=== PATIENT | female | born 1930 | race Caucasian/White ===

== ENCOUNTER 2017-03-05 22:52 | Inpatient (IN) | payer BC, MEDICARE ==
[~2017-03-05] VITALS: Ht 167.6 cm; Wt 68.0 kg
[~2017-03-05 22:52] MED LIST: ACET-704 PO; ASPI81TA2 PO; CIPR250T PO; FERR140T2 PO; GLIM4TAB2 PO; LEVO100T5 PO; LEVO25TA55 PO; LOSA100T6 PO; LOVA40TA PO; MINE473O2 PO; PANT40TA5 PO; PHEN95TA PO; SITA1TBM4 PO; VITA1TAB3 PO; WARF5TAB7 PO
[2017-03-05 23:31] LABS: BASO % 0 % (0-3); EOS % 0 % (0-3); HEMATOCRIT 28.3 % (36.0-47.0); HEMOGLOBIN 9.4 g/dL (12.0-15.5); LYMPH # 0.7 x10^3/uL (1.0-4.8); LYMPH % 7 % (24-48); MEAN CORPUSCULAR HEMOGLOBIN 33 pg (25-35); MEAN CORPUSCULAR HGB CONC 33 g/dL (31-37); MEAN CORPUSCULAR VOLUME 98 fL (79-100); MONO % 3 % (0-9); NEUT % 89 % (31-73); PLATELET COUNT 313 x10^3/uL (140-400); RED BLOOD COUNT 2.88 x10^6/uL (3.50-5.40); RED CELL DISTRIBUTION WIDTH 15.9 % (11.5-14.5); WHITE BLOOD COUNT 10.5 x10^3/uL (4.0-11.0)
[2017-03-05 23:43] LABS: ALBUMIN 3.1 g/dL (3.4-5.0); ALBUMIN/GLOBULIN RATIO 0.7 (1.0-1.7); CALCIUM 8.4 mg/dL (8.5-10.1); CREATININE 3.7 mg/dL (0.6-1.0); GFR 11.6; TOTAL BILIRUBIN 0.5 mg/dL (0.2-1.0); TOTAL PROTEIN 7.5 g/dL (6.4-8.2)
--- NOTE | 2017-03-05 23:49 | PHYS DOC ---
Past Medical History Past Medical History: Diabetes-Type II, DVT, High Cholesterol, Hypertension, Hypothyroid, UTI Past Surgical History: Cholecystectomy, Coronary Bypass Surgery, Hip Replacement, Hysterectomy, Other Additional Past Surgical Histo: RIGHT HIP, IVC FILTER PLACED Alcohol Use: Rarely Drug Use: None Adult General Chief Complaint Chief Complaint: MECHANICAL FALL HPI HPI Patient is a 86 year old female who lives at home by herself and her daughter was coming to visit her from [place] and she got to open the door and slipped and fell. Daughter states patient did hit her head. Patient wears oxygen at night and went EMS got there the patient had O2 saturations in the low 70s. Daughter states this is not unremarkable. Patient has a skin tear to her left elbow. Patient has no other significant signs of trauma. Patient has no complaints in the emergency room. Patient denies any head or neck pain. Patient denies any chest pain or shortness of breath. Family is at bedside. Pertinent physical exam findings: Skin tear to the left elbow Tachycardia ED course: A septic workup was ordered on the patient along with a CT of the head and neck and a chest x-ray and EKG 2309: Sinus tach rate of 107 no STEM 0022: Discussed the chest x-ray and lab results with the patient and family and will merit for further evaluation and management 0058: called Dr. Grewal discussed CC/HPI/PMH with and he agrees to admit the patient Pertinent results: Chest shows questionable left lower infiltrates with possible persistent left scarring Creatinine of 3.7 with a BUN of 80 ED medical decision making: After reviewing the chart, chief complaint, history of present illness, past medical history, physical exam, lab results, radiology results I believe the patient may be developing a left lower lobe pneumonia or fluid contributed the patient hypoxia that was noted by EMS when they went to the house to transport her to the emergency room. We'll start the patient on antibiotics. Patient be admitted for further evaluation and management. At this time the patient does not need ICU. Review of Systems Review of Systems Constitutional: Denies fever or chills [] Eyes: Denies change in visual acuity, redness, or eye pain [] HENT: Denies nasal congestion or sore throat [] Respiratory: Denies cough or shortness of breath [] Cardiovascular: No additional information not addressed in HPI [] GI: Denies abdominal pain, nausea, vomiting, bloody stools or diarrhea [] : Denies dysuria or hematuria [] Musculoskeletal: Denies back pain or joint pain [] Integument: Denies rash or skin lesions [] Neurologic: Denies headache, focal weakness or sensory changes [] Endocrine: Denies polyuria or polydipsia [] Current Medications Current Medications Current Medications Medications (Trade) Dose Ordered Sig/Silvano Start Time Stop Time Status Last Admin Dose Admin Azithromycin 250 ml @ 250 mls/hr 1X ONCE 03/06/17 01:00 03/06/17 01:59 Ceftriaxone Sodium 1 gm/ Sodium Chloride 50 ml @ 100 mls/hr Q24H 03/06/17 23:00 Ceftriaxone Sodium 50 ml @ 100 mls/hr 1X ONCE 03/06/17 00:30 03/06/17 00:59 03/06/17 00:49 100 MLS/HR Allergies Allergies Allergies Coded Allergies Type Severity Reaction Last Updated Verified No Known Drug Allergies 10/20/13 No Physical Exam Physical Exam Constitutional: Well developed, well nourished, no acute distress, non-toxic appearance. [] HENT: Normocephalic, atraumatic, bilateral external ears normal, oropharynx moist, no oral exudates, nose normal. [] Eyes: PERRLA, EOMI, conjunctiva normal, no discharge. [] Neck: Normal range of motion, no tenderness, supple, no stridor. [] Cardiovascular: Tachycardia, no murmur [] Lungs & Thorax: Bilateral breath sounds clear to auscultation [] Abdomen: Bowel sounds normal, soft, no tenderness, no masses, no pulsatile masses. [] Skin: Warm, dry, no erythema, no rash. Skin tear to her right elbow that is unsuturable [] Back: No tenderness, no CVA tenderness. [] Extremities: No tenderness, no cyanosis, no clubbing, ROM intact, no edema. [] Neurologic: Alert and oriented X 3, normal motor function, normal sensory function, no focal deficits noted. [] Psychologic: Affect normal, judgement normal, mood normal. [] Current Patient Data Vital Signs Vital Signs Date Time Temp Pulse Resp B/P (MAP) Pulse Ox O2 Delivery O2 Flow Rate FiO2 03/06/17 00:30 64 16 105/52 (69) 98 Nasal Cannula 3.0 03/05/17 22:55 98.9 98.9 Lab Values Laboratory Tests Test 03/05/17 23:10 03/05/17 23:40 White Blood Count 10.5 x10^3/uL (4.0-11.0) Red Blood Count 2.88 x10^6/uL (3.50-5.40) L Hemoglobin 9.4 g/dL (12.0-15.5) L Hematocrit 28.3 % (36.0-47.0) L Mean Corpuscular Volume 98 fL (79-100) Mean Corpuscular Hemoglobin 33 pg (25-35) Mean Corpuscular Hemoglobin Concent 33 g/dL (31-37) Red Cell Distribution Width 15.9 % (11.5-14.5) H Platelet Count 313 x10^3/uL (140-400) Neutrophils (%) (Auto) 89 % (31-73) H Lymphocytes (%) (Auto) 7 % (24-48) L Monocytes (%) (Auto) 3 % (0-9) Eosinophils (%) (Auto) 0 % (0-3) Basophils (%) (Auto) 0 % (0-3) Neutrophils # (Auto) 9.3 x10^3uL (1.8-7.7) H Lymphocytes # (Auto) 0.7 x10^3/uL (1.0-4.8) L Monocytes # (Auto) 0.4 x10^3/uL (0.0-1.1) Eosinophils # (Auto) 0.0 x10^3/uL (0.0-0.7) Basophils # (Auto) 0.0 x10^3/uL (0.0-0.2) Platelet Estimate Pending Sodium Level 136 mmol/L (136-145) Potassium Level 5.0 mmol/L (3.5-5.1) Chloride Level 100 mmol/L (98-107) Carbon Dioxide Level 22 mmol/L (21-32) Anion Gap 14 (6-14) Blood Urea Nitrogen 80 mg/dL (7-20) H Creatinine 3.7 mg/dL (0.6-1.0) H Estimated GFR (Cockcroft-Gault) 11.6 BUN/Creatinine Ratio 22 (6-20) H Glucose Level 302 mg/dL (70-99) H Calcium Level 8.4 mg/dL (8.5-10.1) L Total Bilirubin 0.5 mg/dL (0.2-1.0) Aspartate Amino Transferase (AST) 22 U/L (15-37) Alanine Aminotransferase (ALT) 15 U/L (14-59) Alkaline Phosphatase 51 U/L (46-116) Troponin I Quantitative < 0.017 ng/mL (0.000-0.055) JW-Hxk-A-Type Natriuretic Peptide 06167 pg/mL (0-449) H Total Protein 7.5 g/dL (6.4-8.2) Albumin 3.1 g/dL (3.4-5.0) L Albumin/Globulin Ratio 0.7 (1.0-1.7) L Lactic Acid Level 2.5 mmol/L (0.4-2.0) H Laboratory Tests 03/05/17 23:10 Laboratory Tests 03/05/17 23:10 EKG EKG Sinus tach rate of 107 no STEMI[] Radiology/Procedures Radiology/Procedures CT head and neck No traumatic intracranial injury or fracture Chest x-ray Possible left lower lobe infiltrate versus scarring [] Course & Med Decision Making Course & Med Decision Making Pertinent Labs and Imaging studies reviewed. (See chart for details) [] Dragon Disclaimer Dragon Disclaimer This electronic medical record was generated, in whole or in part, using a voice recognition dictation system. Departure Departure Impression: Primary Impression: Hypoxia Additional Impressions: Pneumonia Acute on chronic renal failure Disposition: ADMITTED INPATIENT Admitting Physician: Jessica Grewal Condition: STABLE Referrals: JESSICA GREWAL MD (PCP) Problem Qualifiers Additional Impressions: Pneumonia Pneumonia type: due to unspecified organism Laterality: left Lung location : lower lobe of lung Qualified Codes: J18.1 - Lobar pneumonia, unspecified organism MARCOS WORTHINGTON DO March 05, 2017 23:49
--- NOTE | 2017-03-05 23:56 | RAD ---
PROCEDURE CT head and cervical spine without contrast. HISTORY Patient fell, head and neck pain. COMPARISON CT head without contrast September 13, 2015. TECHNIQUE Helical CT imaging of the brain and of the cervical spine is performed without IV contrast. PQRS: One or more the following individualized dose reduction techniques were utilized for the study: 1. Automated exposure control. 2. Adjustment of the mA and/or kV according to patient size. 3. Use of iterative reconstruction technique. FINDINGS No acute calvarial fracture. Visualized globes and orbits are intact. The mastoid air cells are clear. Mild mucosal thickening left sphenoid sinus. Maxillary sinuses incompletely imaged. No midline shift or mass effect. No extra-axial fluid collection or intraparenchymal hemorrhage. Gee-white matter differentiation is preserved. Basilar cisterns are patent. The ventricles and sulci are prominent, consistent with age-related cerebral atrophy. There is periventricular white matter hypoattenuation, nonspecific but commonly due to chronic small vessel ischemic disease in a patient of this age. Motion artifact degrades image quality on the cervical spine images. No acute fracture or subluxation of the cervical spine. Multilevel facet hypertrophy. Straightening of normal cervical lordosis may be positional or due to muscle spasm. No perched or jumped facets. There is grade 1 anterolisthesis of C3 on C4 and C4 on C5. Alignment otherwise maintained. There is disc space narrowing and degenerative endplate spurring in the cervical spine. There is central canal stenosis due to spondylitic disc of C3/C4. There is vague ground-glass opacity in the left lung apex, image 50. Soft tissues of the neck unremarkable. IMPRESSION 1. No acute intracranial abnormality. Senescent changes. 2. No acute fracture or subluxation of the cervical spine. Electronically signed by: Valentin Jeronimo MD (March 05, 2017 23:55:35)
[2017-03-06] MEDS ORDERED: AZITHRMYCN 500MG IVPB FOR OMNI 250 ML IV ONE (01:00)
[2017-03-06] MEDS ORDERED: MORPHINE SULFATE 2 MG/ML DISP.SYRIN. IV PRN (01:15)
[2017-03-06] MEDS ORDERED: ONDANSETRON PF 4 MG/2 ML VIAL. IV PRN (01:15)
[2017-03-06 01:25] LABS: ANISOCYTOSIS SLIGHT; OVALOCYTES OCC; PLT ESTIMATE ADEQUATE (ADEQUATE)
--- NOTE | 2017-03-06 02:14 | ACF ---
Admission Forms Criteria PNEUMONIA, COMMUNITY ACQUIRED Clinical Indications for Admission to Inpatient Care ( Place 'X' for any and all applicable criteria): Admission is indicated for ANY ONE of the following (1)(2)(3): [ ]I. Hypoxemia indicated by ANY ONE of the following: [ ]a) Oxygen saturation less than 90% while breathing room air [ ]b) PO2 less than 60 mm Hg (8.0 kPa) while breathing room air [ ]c) Chronic lung disease with significant deterioration from baseline oxygenation [ ]II. Appropriate diagnostic testing and treatment unavailable in outpatient or recovery facility (eg,testing or infection control measures unavailable(10) [X]III. Moderate-risk or high-risk category patients (Pneumonia Severity Index (PSI) class IV or V, or CURB-65 score of 3 or greater). [ ]IV. Outpatient treatment failure as indicated by ANY ONE of the following(9) : [ ]a) Failure to respond to antibiotic (eg, resistant organism) [ ]b) Clinically significant adverse effects from medication (eg, vomiting) [ ]c) Complications of pneumonia (eg, empyema, bacteremia) [ ]d) Significant worsening of comorbid cond necessitating inpatient care (eg, chronic heart failure) [ ]V. Intermediate-risk category patients (eg, PSI class III or CURB-65 score 2) who do not improve with initial therapy and observation. [ ]. Immunocompromised patients (eg, AIDS, chronic steroid use) at moderate or high risk based on clinical evaluation. [ ]VII. Complicated pleural effusions (eg, exudative, loculated) [ ]VIII.Hemodynamic instability [ ] IX. Altered mental status that is severe or persistent. [ ]X. Dehydration that is severe or persistent. [ ]XI. Bacteremia [ ]XII. Respiratory finding (eg. tachypnea) that do not respond to outpatient or observation care treatment Extended stay beyond goal length of stay may be needed for (20) [ ]a) Unclear diagnosis [ ]b) Pleural disease [ ]c) Severe pneumonia or treatment failure (25 [ ]d) Respiratory failure (anticipate invasive or noninvasive ventilatory support) [ ]e) Abnormal serum electrolytes (serum Na concentration less than 135 mEq/L (mmol/L) (32)(33) [ ]f) Clinically significant comorbid illness (eg, heart failure, atrial fibrillation with rapid heart rate, alcohol withdrawal, renal insufficiency)(34)(35) [ ]g) Comorbid acute exacerbation of COPD(36) [ ]h) Concomitant diagnosis of malignancy that may be associated with malnutrition, immunologic impairment, or bronchial obstruction. [ ]i) Concomitant altered mental status [ ]j) Culture-identified Gram-negative or antibiotic-resistant organism (eg, Pseudomonas, methicillin-resistant Staphylococcus aureus)(30) [ ]k) Healthcare-associated pneumonia The original [facility] content created by [employer] has been revised. The portions of the content which have been revised are identified through the use of italic text or in bold, and [facility] has neither reviewed nor approved the modified material. All other unmodified content is copyright [facility]. Please see references footnoted in the original [facility] edition 2016 Admission Criteria Met?: Yes CALISTA CARDOZO March 06, 2017 02:14
[2017-03-06 03:00] VITALS: BP 96/45
[2017-03-06 07:00] VITALS: BP 116/49
--- NOTE | 2017-03-06 08:45 | RAD ---
Examination: Single frontal view the chest. History: Hypoxia Comparison: 04/08/2016 Findings: The cardiomediastinal silhouette grossly appears unremarkable. There is no acute infiltrate or visualized pneumothorax identified. Mild prominent appearing bilateral interstitial markings likely chronic interstitial changes. Impression: 1. No acute cardiopulmonary findings. 2. Chronic interstitial changes.
--- NOTE | 2017-03-06 09:23 | PDOC ---
GENERAL General: see dictated H&P. Problems: VITAL SIGNS Vital Signs: Vital Signs Date Time Temp Pulse Resp B/P (MAP) Pulse Ox O2 Delivery O2 Flow Rate FiO2 03/06/17 07:00 97.9 57 18 116/49 (71) 95 Nasal Cannula 3.0 97.9 I & O I & O Intake and Output 03/06/17 07:00 Intake Total 50 ml Output Total 120 ml Balance -70 ml Intake IV Total 50 ml Output Urine Total 120 ml # Voids 1 ALLERGIES Allergies: Allergies Coded Allergies Type Severity Reaction Last Updated Verified No Known Drug Allergies 10/20/13 No MEDS Medications: Current Medications Medications (Trade) Dose Ordered Sig/Silvano Start Time Stop Time Status Last Admin Dose Admin Azithromycin 250 ml @ 250 mls/hr 1X ONCE 03/06/17 01:00 03/06/17 01:59 DC 03/06/17 01:12 250 MLS/HR Ceftriaxone Sodium 1 gm/ Sodium Chloride 50 ml @ 100 mls/hr Q24H 03/06/17 23:00 Ceftriaxone Sodium 50 ml @ 100 mls/hr 1X ONCE 03/06/17 00:30 03/06/17 00:59 DC 03/06/17 00:49 100 MLS/HR Morphine Sulfate 2 mg PRN Q2HR PRN 03/06/17 01:15 03/07/17 01:14 Ondansetron HCl (Zofran) 4 mg PRN Q8HRS PRN 03/06/17 01:15 03/07/17 01:14 LAB Lab: Laboratory Tests Test 03/05/17 23:10 03/05/17 23:40 White Blood Count 10.5 x10^3/uL (4.0-11.0) Red Blood Count 2.88 x10^6/uL (3.50-5.40) Hemoglobin 9.4 g/dL (12.0-15.5) Hematocrit 28.3 % (36.0-47.0) Mean Corpuscular Volume 98 fL (79-100) Mean Corpuscular Hemoglobin 33 pg (25-35) Mean Corpuscular Hemoglobin Concent 33 g/dL (31-37) Red Cell Distribution Width 15.9 % (11.5-14.5) Platelet Count 313 x10^3/uL (140-400) Neutrophils (%) (Auto) 89 % (31-73) Lymphocytes (%) (Auto) 7 % (24-48) Monocytes (%) (Auto) 3 % (0-9) Eosinophils (%) (Auto) 0 % (0-3) Basophils (%) (Auto) 0 % (0-3) Neutrophils # (Auto) 9.3 x10^3uL (1.8-7.7) Lymphocytes # (Auto) 0.7 x10^3/uL (1.0-4.8) Monocytes # (Auto) 0.4 x10^3/uL (0.0-1.1) Eosinophils # (Auto) 0.0 x10^3/uL (0.0-0.7) Basophils # (Auto) 0.0 x10^3/uL (0.0-0.2) Segmented Neutrophils % 73 % (35-66) Band Neutrophils % 19 % (0-9) Lymphocytes % 8 % (24-48) Platelet Estimate Adequate (ADEQUATE) Anisocytosis Slight Ovalocytes Occ Sodium Level 136 mmol/L (136-145) Potassium Level 5.0 mmol/L (3.5-5.1) Chloride Level 100 mmol/L (98-107) Carbon Dioxide Level 22 mmol/L (21-32) Anion Gap 14 (6-14) Blood Urea Nitrogen 80 mg/dL (7-20) Creatinine 3.7 mg/dL (0.6-1.0) Estimated GFR (Cockcroft-Gault) 11.6 BUN/Creatinine Ratio 22 (6-20) Glucose Level 302 mg/dL (70-99) Calcium Level 8.4 mg/dL (8.5-10.1) Total Bilirubin 0.5 mg/dL (0.2-1.0) Aspartate Amino Transf (AST/SGOT) 22 U/L (15-37) Alanine Aminotransferase (ALT/SGPT) 15 U/L (14-59) Alkaline Phosphatase 51 U/L (46-116) Troponin I Quantitative < 0.017 ng/mL (0.000-0.055) EW-Yaq-Z-Type Natriuretic Peptide 53332 pg/mL (0-449) Total Protein 7.5 g/dL (6.4-8.2) Albumin 3.1 g/dL (3.4-5.0) Albumin/Globulin Ratio 0.7 (1.0-1.7) Lactic Acid Level 2.5 mmol/L (0.4-2.0) JESSICA GREWAL MD March 06, 2017 09:23
--- NOTE | 2017-03-06 10:30 | PDOC ---
Provider Note Provider Note [id number] acute resp fail acute diastolic chf carmen see orders. JESUS CARRENO MD March 06, 2017 10:30
[2017-03-06] MEDS: FUROSEMIDE 40 MG/4 ML VIAL. IVP SCH (10:32)
[2017-03-06] MEDS: PANTOPRAZOLE 40 MG TABLET.DR. PO SCH (10:40)
[2017-03-06 10:43] VITALS: BP 136/40
[2017-03-06] MEDS ORDERED: DEXTROSE 50% 25 GM / 50ML DISP.SYRIN. IV PRN (11:15)
--- NOTE | 2017-03-06 11:22 | EKG ---
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
[2017-03-06] MEDS: INSULIN ASPART 300 UNITS/3 ML INSULN.PEN SQ SCH ×2 (11:33→16:46)
[2017-03-06] MEDS: IPRATRPIUM/ALBUTEROL 0.5/2.5MG 3 ML NEBU. NEB SCH ×3 (11:38→19:44)
--- NOTE | 2017-03-06 12:03 | CONS ---
DATE OF CONSULTATION: 03/06/2017 I was asked to see this 86-year-old lady for shortness of breath, acute respiratory failure, abnormal chest x-ray. HISTORY OF PRESENT ILLNESS: She is a lifelong nonsmoker. She has multiple medical problems. She has history of pulmonary embolism and DVT status post IVC filter. She has congestive heart failure. Dr. Bethea mentioned that she has been diuresed to improve her shortness of breath. She has not felt good for the past few days. She has had more shortness of breath. She has had cough, runny nose. She denies fever and chills. Her daughter came to visit her. The patient fell on her way opening the door for her. Her daughter called 911. She was found to have O2 saturation of 70%. She is now on oxygen. She feels tired. She has pain in sternal area. PAST MEDICAL HISTORY: CHF, diabetes mellitus, DVT, pulmonary embolism, IVC filter, hypertension, UTI, hypothyroidism, coronary artery disease status post CABG. ALLERGIES: No known drug allergies. MEDICATIONS: Currently she is on Lasix 40 mg IV daily, Rocephin 1 gram IV daily. SOCIAL HISTORY: She does not smoke. FAMILY HISTORY: Positive for hypertension. REVIEW OF SYSTEMS: As mentioned as above. She has had left lower extremity edema. Other systems otherwise negative. PHYSICAL EXAMINATION: GENERAL: This is a chronically ill-appearing lady. VITAL SIGNS: Her O2 saturation on 3 liters of oxygen is 95%, respiratory rate 20, heart rate 57, Blood pressure 116/49, temperature 97.9. HEENT: Normocephalic, atraumatic. Pupils equal, round, reactive to light. Throat is clear. Nose is clear. NECK: There is no JVD, lymphadenopathy or thyromegaly. CARDIOVASCULAR: Regular rate and rhythm. PMI is not displaced. CHEST: Inspection, she has kyphosis. LUNGS: There is bibasilar crackles and dullness at the bases. ABDOMEN: Soft. Bowel sounds are good. There is no mass. EXTREMITIES: There is edema, chronic changes. LYMPHATICS: There is no lymphadenopathy. NEUROLOGIC: She is alert and oriented. SKIN: Chronic changes. LABORATORY DATA: I reviewed the following lab data: Chest x-ray shows increased interstitial marking. WBC 10.5, hemoglobin 9.4, platelets 313. Sodium 136, potassium 5, chloride 100, CO2 of 22, glucose 302, BUN 80, creatinine 3.7. BNP 20,027. Troponin less than 0.01. Lactic acid 2.5. IMPRESSION: 1. Acute respiratory failure, multifactorial in etiology including acute diastolic congestive heart failure, volume overload secondary to acute kidney injury versus others. 2. Abnormal chest x-ray. 3. Acute diastolic congestive heart failure. 4. Acute kidney injury. 5. Chronic kidney disease. 6. Anemia. 7. Hypertension. 8. Diabetes mellitus. 9. 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 PLAN AND RECOMMENDATIONS: 1. Titrate FiO2 to keep O2 saturation 92%. 2. Start bronchodilator. 3. Gentle diuresis. Monitor kidney function very closely. 4. Protonix for stress ulcer prophylaxis. 5. She has IVC filter. 6. Blood culture. 7. Continue Rocephin. 8. fall precaution The findings and recommendations were discussed with the patient and her daughter. They understood and agreed to proceed with the plan. Thank you very much for allowing me to participate in care of this very nice lady. JESUS CARRENO M.D. : AJAY/ruddy JOB#: [id number] / [id number] NAKUL
[2017-03-06] MEDS ORDERED: ONDA-35 PO (12:53)
[2017-03-06] MEDS ORDERED: BYSTOLIC10 MG PO (12:53)
[2017-03-06] MEDS ORDERED: FERR-26 PO (12:53)
[2017-03-06] MEDS ORDERED: PROC5TAB14 PO (12:53)
[2017-03-06] MEDS ORDERED: FURO40TA4 PO (12:53)
[2017-03-06] MEDS ORDERED: CYAN100072 PO (12:53)
[2017-03-06] MEDS ORDERED: LEVOTHYROXINE 100 MCG TABLET PO SCH (14:00)
--- NOTE | 2017-03-06 14:01 | HP ---
ADMIT DATE: CHIEF COMPLAINT AND HISTORY OF PRESENT ILLNESS: This 86-year-old white female is well known to me from followup in the office. The patient was going to the door to let her daughter in who had driven in from [place] for the weekend when she fell, hitting her head and neck and obtained a skin tear to her left elbow. She was brought to the Emergency Room where she was found to be hypoxic, had negative CTs of head and neck, relatively normal chest x-ray, BNP of 20,000, BUN of 80, creatinine of 3.6. Giving some history regarding to this, the patient has had troubles with congestive heart failure and chronic anemia, which has been felt due to her underlying chronic kidney disease. She sees Hematology and receives Procrit on and off basis for the anemia. Her BUN and creatinine have raised as I have added Zaroxolyn to her Lasix regimen recently to try to get rid of fluid because of breathing difficulties. We have had discussions in the office that kidney function may not allow us to diurese her to the point where she is comfortable all the time from a congestive heart failure standpoint and she is at least open to the idea of dialysis if it takes such a thing and we will ask Renal to see her during this stay regarding the same. PAST MEDICAL HISTORY: Remarkable for diabetes, DVT, hypertension, hyperlipidemia, hypothyroidism. PAST SURGICAL HISTORY: She has had prior cholecystectomy, coronary artery bypass surgery, hip replacement, hysterectomy. She has had an IVC filter placed. SOCIAL HISTORY: She is recently , nonsmoker, rarely uses alcohol, does not use drugs. Lives at home alone. FAMILY HISTORY: Noncontributory. MEDICATIONS: Brought with the patient, listed on the computer and have been addressed. ALLERGIES: She has no known drug allergies. PHYSICAL EXAMINATION: GENERAL: She is a well-developed, well-nourished elderly white female who was initially sleepy, but arouses and is awake, alert and oriented. HEAD, EYES, EARS, NOSE AND THROAT: Remarkable for glasses. NECK: Supple without thyromegaly. CHEST: Clear to auscultation and percussion. HEART: Regular rate and rhythm without S3, S4, or murmur. ABDOMEN: Soft, nontender, without hepatosplenomegaly or masses. EXTREMITIES: Reveal 2-3+ edema with redness up to two-thirds of the way up the tripp suggesting a possible early cellulitis bilaterally. NEUROLOGIC: She is intact. IMPRESSION: Admission due to fall for other reasons, predominantly that of hypoxia, which is likely related to congestive heart failure exacerbated by her renal dysfunction, which allows us not to diurese her as well as we would like to as discussed above. PLAN: The patient has been admitted. I am going to ask Cardiology and Renal to come by and try to sort this out on how we could maybe get this better. At this point in time, she will be on O2 as needed, to maintain O2 sats and the patient will be monitored, managed and treated appropriately. JESSICA GREWAL MD DR: BRE/ruddy JOB#: [id number] / [id number]
[2017-03-06] MEDS: METOPROLOL TART IMMED RELEASE 50 MG TABLET. PO SCH ×2 (14:25→20:55)
[2017-03-06] MEDS: LOSARTAN POTASSIUM 50 MG TABLET. PO SCH (14:25)
[2017-03-06 14:56] VITALS: BP 119/45
--- NOTE | 2017-03-06 15:07 | CARD ---
APPROVED REPORT EXAM: Two-dimensional and M-mode echocardiogram with Doppler and color Doppler. Other Information Quality : Excellent INDICATION Congestive Heart Failure 2D DIMENSIONS RVDd4.2 (2.9-3.5cm)Left Atrium(2D)5.0 (1.6-4.0cm) IVSd1.5 (0.7-1.1cm)Aortic Root(2D)2.5 (2.0-3.7cm) LVDd4.0 (3.9-5.9cm)LVOT Diameter2.0 (1.8-2.4cm) PWd1.0 (0.7-1.1cm)LVDs2.3 (2.5-4.0cm) FS (%) 30.0 %SV52.9 ml LVEF(%)65.0 (>50%) Aortic Valve AoV Peak Amrit.130.1cm/sAoV VTI24.8cm AO Peak GR.6.8mmHgLVOT VTI 18.02cm AO Mean GR.3mmHgAVA (VTI)2.20cm2 Mitral Valve MV E Zzjrrrfo67.3cm/sMV DECEL [id number] MV A Ymnttyhi31.3cm/sE/A Ratio0.8 TDI Lateral E' P. V4.18cm/sMedial E' P. V4.89cm/s E/Lateral E'18.3E/Medial E'15.6 Tricuspid Valve TR P. Kfltqvmg318ed/sRAP [id number] TR Peak Gr.[id number] Pulmonary Vein S1 Dqlyamgc23.6cm/sS2 Zygvldwi58.51cm/s D2 Gyybggkd85.5cm/sPVa [id number] LEFT VENTRICLE The left ventricle is normal size. There is moderate concentric left ventricular hypertrophy. The lef t ventricular systolic function is normal and the ejection fraction is within normal range. The Eject ion Fraction is 65%. There is normal LV segmental wall motion. Transmitral Doppler flow pattern is Gr arabella II-abnormal relaxation pattern. RIGHT VENTRICLE The right ventricle is mildly dilated. The right ventricular systolic function is normal. ATRIA The left atrium is mild to moderately dilated. The right atrium is mildly dilated. The interatrial se ptum is intact with no evidence for an atrial septal defect or patent foramen ovale as noted on 2-D o r Doppler imaging. AORTIC VALVE The aortic valve is mildly thickened but opens well. Doppler and Color Flow revealed mild aortic regu rgitation. There is no significant aortic valvular stenosis. MITRAL VALVE The mitral valve is calcified but opens well. There is no evidence of mitral valve prolapse. There is no mitral valve stenosis. Doppler and Color-flow revealed mild mitral regurgitation. TRICUSPID VALVE The tricuspid valve is normal in structure Doppler and Color Flow revealed moderate tricuspid regurgi tation. There is severe pulmonary hypertension. The PA pressure was estimated at 66 mmHg. There is no tricuspid valve stenosis. PULMONIC VALVE The pulmonary valve is normal in structure Doppler and Color Flow revealed mild to moderate pulmonic valvular regurgitation. There is no pulmonic valvular stenosis. GREAT VESSELS The aortic root is normal in size. The ascending aorta is normal in size. The IVC is dilated and jing apses <50% with inspiration. PERICARDIAL EFFUSION There is no evidence of significant pericardial effusion. Critical Notification Critical Value: No <Conclusion> There is moderate concentric left ventricular hypertrophy. The left ventricular systolic function is normal and the ejection fraction is within normal range. The Ejection Fraction is 65%. Transmitral Doppler flow pattern is Grade II-abnormal relaxation pattern. The right ventricle is mildly dilated. The left atrium is mild to moderately dilated. The right atrium is mildly dilated. Doppler and Color Flow revealed mild aortic regurgitation. The aortic valve is mildly thickened but opens well. Doppler and Color-flow revealed mild mitral regurgitation. The mitral valve is calcified but opens well. Doppler and Color Flow revealed moderate tricuspid regurgitation. There is severe pulmonary hypertension. The PA pressure was estimated at 66 mmHg. Doppler and Color Flow revealed mild to moderate pulmonic valvular regurgitation. There is no evidence of significant pericardial effusion.
[2017-03-06] MEDS ORDERED: LEVO150T5 PO (15:28)
--- NOTE | 2017-03-06 15:59 | PDOC2 ---
CONSULT Date of Consult Date of Consult DATE: 03/06/17 TIME: 15:49 Reason for Consult Reason for Consult: CHF Referring Physician Referring Physician: Dr. Bethea Identification/Chief Complaint Chief Complaint Fall History of Present Illness Reason for Visit: This patient is a very pleasant 86-year-old lady that I have seen in the past. Sometimes she is not the best of historians due to memory loss. Patient has a known history of coronary artery disease as well as bypass surgery and previous episodes of congestive heart failure due to diastolic dysfunction. She was at home and walk to the door to let her family in and had a fall and due to that she was brought into the emergency room which she was seen and evaluated and he was decided to admit her. In the ER she was found to be short of breath and quite hypoxic and her BUN/creatinine and creatinine are markedly elevated and her anemia which is chronic is may be getting worse. At the time that I saw her she denies having any significant chest pains and denies having any shortness of breath at this point but she states that if she tries to take a deep breath it hurts on the side of the chest. Past Medical History Cardiovascular: CAD, HTN, Hyperlipidemia, Other Pulmonary: No pertinent hx GI: GI bleed, Peptic Ulcer disease Hepatobiliary: Cholelithiasis Renal/: Chronic renal insuff, UTI, Urinary Incontinence Endocrine: Diabetes, Hypothyroidism Past Surgical History Past Surgical History: Appendectomy, Cholecystectomy, CABG, Hernia Repair, Total hip replacement, Hysterectomy Current Problem List Problem List Problems Medical Problems: (1) Acute on chronic renal failure Status: Acute (2) Hypoxia Status: Acute (3) Pneumonia Status: Acute Current Medications Current Medications Current Medications Ceftriaxone Sodium 1 gm/ Sodium Chloride 50 ml @ 100 mls/hr Q24H IV ; Start at 23:00 Azithromycin 250 ml @ 250 mls/hr 1X ONCE IV Last administered on 03/06/17 01 :12; Start 03/06/17 at 01:00; Stop 03/06/17 at 01:59; Status DC Ceftriaxone Sodium 50 ml @ 100 mls/hr 1X ONCE IV Last administered on 00:49; Start 03/06/17 at 00:30; Stop 03/06/17 at 00:59; Status DC Ondansetron HCl (Zofran) 4 mg PRN Q8HRS PRN IV NAUSEA/VOMITING; Start 03/06/17 at 01:15; Stop 03/07/17 at 01:14 Morphine Sulfate 2 mg PRN Q2HR PRN IV SEVERE PAIN; Start 03/06/17 at 01:15; Stop 03/07/17 at 01:14 Furosemide (Lasix) 40 mg DAILY IVP Last administered on 03/06/17 10:32; Start 03/06/17 at 10:00 Pantoprazole Sodium (Protonix) 40 mg DAILYAC PO Last administered on 03/06/17 10:40; Start 03/06/17 at 11:30 Albuterol/ Ipratropium (Duoneb) 3 ml RTQID NEB Last administered on 03/06/17 15:29; Start 03/06/17 at 12:00 Insulin Aspart (NovoLOG) 0-5 UNITS TIDWMEALS SQ Last administered on 03/06/17 11:33; Start 03/06/17 at 12:00 Dextrose (Dextrose 50%-Water Syringe) 12.5 gm PRN Q15MIN PRN IV SEE COMMENTS; Start 03/06/17 at 11:15 Levothyroxine Sodium (Synthroid) 100 mcg DAILY07 PO Last administered on 14:24; Start 03/06/17 at 14:00; Stop 03/06/17 at 15:30; Status DC Losartan Potassium (Cozaar) 100 mg DAILY PO Last administered on 03/06/17 14: 25; Start 03/06/17 at 14:00 Atorvastatin Calcium (Lipitor) 10 mg QHS PO ; Start 03/06/17 at 21:00 Metoprolol Tartrate (Lopressor) 50 mg BID PO Last administered on 03/06/17 14: 25; Start 03/06/17 at 14:00 Levothyroxine Sodium (Synthroid) 200 mcg WEEKLY@0700 PO ; Start 03/12/17 at 07: 00; Stop 03/12/17 at 07:00; Status DC Levothyroxine Sodium (Synthroid) 150 mcg DAILY07 PO ; Start 03/07/17 at 07:00 Active Scripts Active Reported Levothyroxine Sodium 150 Mcg Tablet 1 Tab PO DAILY Ferrous Sulfate 325 Mg Tablet 65 Mg PO DAILY B-12 (Cyanocobalamin (Vitamin B-12)) 1,000 Mcg Tablet 1,000 Mcg PO DAILY Bystolic (Nebivolol) 10 Mg Tablet 10 Mg PO DAILY Furosemide 40 Mg Tablet 1 Tab PO DAILY Prochlorperazine Maleate 10 Mg Tablet 1 Tab PO Q6HRS Ondansetron Hcl 4 Mg Tablet 1 Tab PO PRN Q6HRS Pantoprazole Sodium 40 Mg Tablet. 1 Tab PO DAILY Losartan Potassium 100 Mg Tablet 100 Mg PO DAILY Glimepiride 4 Mg Tablet 4 Mg PO DAILY Janumet Xr 50-1,000 Mg Tablet (Sitagliptin Phos/Metformin Hcl) 1 Each Tbmp.24hr 1 Tab PO BID Mevacor (Lovastatin) 40 Mg Tablet 40 Mg PO DAILY Allergies Allergies: Coded Allergies: No Known Drug Allergies (Unverified , 10/20/13) Physical Exam Physical Exam H EENT pupils are reactive, oral mucosa well-hydrated. Neck is supple 1 cm JVD. Lungs moving air well few Rales no wheezing. Heart regular rate and rhythm S1-S2 no S3 no S4, 1/6 systolic murmur. No rub. Abdomen is soft bowel sounds are present. Extremities 1-2+ edema. Neurological exam is grossly intact and at her baseline Vitals VITALS Vital Signs Date Time Temp Pulse Resp B/P (MAP) Pulse Ox O2 Delivery O2 Flow Rate FiO2 03/06/17 15:30 99 Nasal Cannula 3.0 03/06/17 14:56 97.8 59 20 119/45 (69) 97.8 Labs Labs Laboratory Tests Test 03/05/17 23:10 03/05/17 23:40 White Blood Count 10.5 x10^3/uL (4.0-11.0) Red Blood Count 2.88 x10^6/uL (3.50-5.40) Hemoglobin 9.4 g/dL (12.0-15.5) Hematocrit 28.3 % (36.0-47.0) Mean Corpuscular Volume 98 fL (79-100) Mean Corpuscular Hemoglobin 33 pg (25-35) Mean Corpuscular Hemoglobin Concent 33 g/dL (31-37) Red Cell Distribution Width 15.9 % (11.5-14.5) Platelet Count 313 x10^3/uL (140-400) Neutrophils (%) (Auto) 89 % (31-73) Lymphocytes (%) (Auto) 7 % (24-48) Monocytes (%) (Auto) 3 % (0-9) Eosinophils (%) (Auto) 0 % (0-3) Basophils (%) (Auto) 0 % (0-3) Neutrophils # (Auto) 9.3 x10^3uL (1.8-7.7) Lymphocytes # (Auto) 0.7 x10^3/uL (1.0-4.8) Monocytes # (Auto) 0.4 x10^3/uL (0.0-1.1) Eosinophils # (Auto) 0.0 x10^3/uL (0.0-0.7) Basophils # (Auto) 0.0 x10^3/uL (0.0-0.2) Segmented Neutrophils % 73 % (35-66) Band Neutrophils % 19 % (0-9) Lymphocytes % 8 % (24-48) Platelet Estimate Adequate (ADEQUATE) Anisocytosis Slight Ovalocytes Occ Sodium Level 136 mmol/L (136-145) Potassium Level 5.0 mmol/L (3.5-5.1) Chloride Level 100 mmol/L (98-107) Carbon Dioxide Level 22 mmol/L (21-32) Anion Gap 14 (6-14) Blood Urea Nitrogen 80 mg/dL (7-20) Creatinine 3.7 mg/dL (0.6-1.0) Estimated GFR (Cockcroft-Gault) 11.6 BUN/Creatinine Ratio 22 (6-20) Glucose Level 302 mg/dL (70-99) Calcium Level 8.4 mg/dL (8.5-10.1) Total Bilirubin 0.5 mg/dL (0.2-1.0) Aspartate Amino Transf (AST/SGOT) 22 U/L (15-37) Alanine Aminotransferase (ALT/SGPT) 15 U/L (14-59) Alkaline Phosphatase 51 U/L (46-116) Troponin I Quantitative < 0.017 ng/mL (0.000-0.055) XK-Cro-S-Type Natriuretic Peptide 94201 pg/mL (0-449) Total Protein 7.5 g/dL (6.4-8.2) Albumin 3.1 g/dL (3.4-5.0) Albumin/Globulin Ratio 0.7 (1.0-1.7) Lactic Acid Level 2.5 mmol/L (0.4-2.0) Laboratory Tests Test 03/05/17 23:10 03/05/17 23:40 White Blood Count 10.5 x10^3/uL (4.0-11.0) Red Blood Count 2.88 x10^6/uL (3.50-5.40) Hemoglobin 9.4 g/dL (12.0-15.5) Hematocrit 28.3 % (36.0-47.0) Mean Corpuscular Volume 98 fL (79-100) Mean Corpuscular Hemoglobin 33 pg (25-35) Mean Corpuscular Hemoglobin Concent 33 g/dL (31-37) Red Cell Distribution Width 15.9 % (11.5-14.5) Platelet Count 313 x10^3/uL (140-400) Neutrophils (%) (Auto) 89 % (31-73) Lymphocytes (%) (Auto) 7 % (24-48) Monocytes (%) (Auto) 3 % (0-9) Eosinophils (%) (Auto) 0 % (0-3) Basophils (%) (Auto) 0 % (0-3) Neutrophils # (Auto) 9.3 x10^3uL (1.8-7.7) Lymphocytes # (Auto) 0.7 x10^3/uL (1.0-4.8) Monocytes # (Auto) 0.4 x10^3/uL (0.0-1.1) Eosinophils # (Auto) 0.0 x10^3/uL (0.0-0.7) Basophils # (Auto) 0.0 x10^3/uL (0.0-0.2) Segmented Neutrophils % 73 % (35-66) Band Neutrophils % 19 % (0-9) Lymphocytes % 8 % (24-48) Platelet Estimate Adequate (ADEQUATE) Anisocytosis Slight Ovalocytes Occ Sodium Level 136 mmol/L (136-145) Potassium Level 5.0 mmol/L (3.5-5.1) Chloride Level 100 mmol/L (98-107) Carbon Dioxide Level 22 mmol/L (21-32) Anion Gap 14 (6-14) Blood Urea Nitrogen 80 mg/dL (7-20) Creatinine 3.7 mg/dL (0.6-1.0) Estimated GFR (Cockcroft-Gault) 11.6 BUN/Creatinine Ratio 22 (6-20) Glucose Level 302 mg/dL (70-99) Calcium Level 8.4 mg/dL (8.5-10.1) Total Bilirubin 0.5 mg/dL (0.2-1.0) Aspartate Amino Transf (AST/SGOT) 22 U/L (15-37) Alanine Aminotransferase (ALT/SGPT) 15 U/L (14-59) Alkaline Phosphatase 51 U/L (46-116) Troponin I Quantitative < 0.017 ng/mL (0.000-0.055) WS-Esa-O-Type Natriuretic Peptide 70753 pg/mL (0-449) Total Protein 7.5 g/dL (6.4-8.2) Albumin 3.1 g/dL (3.4-5.0) Albumin/Globulin Ratio 0.7 (1.0-1.7) Lactic Acid Level 2.5 mmol/L (0.4-2.0) Assessment/Plan Assessment/Plan This patient's fall may not be due to any dysrhythmias since her rhythm has been stable since she arrived here. However she is very weak and elderly and that may have been the cause for the fall. No apparent loss of consciousness. No significant dysrhythmia since admission. She had an echocardiogram done that showed: There is moderate concentric left ventricular hypertrophy. The left ventricular systolic function is normal and the ejection fraction is within normal range. The Ejection Fraction is 65%. Transmitral Doppler flow pattern is Grade II-abnormal relaxation pattern. The right ventricle is mildly dilated. The left atrium is mild to moderately dilated. The right atrium is mildly dilated. Doppler and Color Flow revealed mild aortic regurgitation. The aortic valve is mildly thickened but opens well. Doppler and Color-flow revealed mild mitral regurgitation. The mitral valve is calcified but opens well. Doppler and Color Flow revealed moderate tricuspid regurgitation. There is severe pulmonary hypertension. The PA pressure was estimated at 66 mmHg. Doppler and Color Flow revealed mild to moderate pulmonic valvular regurgitation. There is no evidence of significant pericardial effusion. With this left ventricular function she should have adequate renal perfusion and her CHF is more of a diastolic issue. I am quite concerned with this situation as far as her kidneys and I don't know that we are going to be able to diurese her medically and even if she responds to medications I don't know how long she will be able to continue to be in this non -oliguric phase. I will leave it up to the printed circuit boards pinner to decide on how to approach this but I would suggest dialysis but I also know that the patient did not want to have that. I will follow the patient with you. Thank you very much for asking me to participate in the care of this patient. ROB ARSHAD MD March 06, 2017 15:59
[2017-03-06 19:00] VITALS: BP 91/42
[2017-03-06] MEDS: ATORVASTATIN CALCIUM 10 MG TABLET. PO SCH (20:55)
--- NOTE | 2017-03-06 21:16 | CONS ---
DATE OF CONSULTATION: 03/06/2017 REQUESTING PHYSICIAN: Nicolas Bethea MD REASON FOR CONSULTATION: Renal failure. HISTORY OF PRESENT ILLNESS: This is a delightful 86-year-old female with diabetes mellitus, hypertension, and chronic kidney disease. The patient presents status post mechanical fall. The patient has had lower extremity edema, which has been worsening. She denies chest pain or shortness of breath or difficulty with diet. She has no nausea, vomiting, diarrhea, seizures, malignancies or itching. PAST MEDICAL HISTORY: Diabetes mellitus, hypertension, chronic kidney disease, DVT, hyperlipidemia, hypothyroidism, urinary tract infections, coronary bypass surgery, cholecystectomy, hip replacement, hysterectomy, IVC filter placement. ALLERGIES: None. MEDICATIONS: Noted. FAMILY HISTORY: Noncontributory. SOCIAL HISTORY: The patient resides independently. She has a son who lives [facility], daughter in [place]. No tobacco or ethanol use. REVIEW OF SYSTEMS: No headaches, sinus problem, nasal drainage, epistaxis, change in vision or hearing. No difficulty swallowing. No fever, chills, cough, sputum production, or hemoptysis. No chest pain or shortness of breath. No abdominal pain, no upper or lower gastrointestinal blood loss. No nausea, vomiting, diarrhea, seizures or malignancies. She has lower extremity edema. PHYSICAL EXAMINATION: GENERAL: The patient awake, conversant, appropriate. HEENT: Clear with sallow complexion. NECK: No increased JVD. No thyromegaly, mass, or adenopathy. She does have kyphosis of the back. LUNGS: Clear. CARDIAC: Without S3 or rub. ABDOMEN: Soft, nontender, no bruits. EXTREMITIES: ____ chronic venous stasis changes with 3+ bilateral extremity edema. NEUROLOGIC: Nonfocal localizing. PSYCHIATRIC: Good attention to detail, appropriate affect. LABORATORY DATA: Sodium 136, potassium 5, chloride 100, CO2 is 23, BUN 80, creatinine 3.7, GFR is 11.6, hemoglobin 9.4, hematocrit 28%, white count 10.5, platelets are 313. IMPRESSION: 1. 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 2. Hypertension. 3. Chronic lower extremity edema. 4. Status post fall. RECOMMENDATIONS: Discussed with the patient and her daughter. The patient is a DNR and has made herself such. We discussed potential intervention with dialysis. She prefers to proceed with medical management and no dialysis. I am certainly agreeable with the same. PLAN: 1. No dialysis at this time. 2. Diuresis as possible for lower extremity edema. Overall, the patient does not appear to have cardiopulmonary compromise from her edema. As such, we will not want to overdiurese. JESSICA ESTES MD DR: ROSE/ruddy JOB#: [id number] / [id number]
[2017-03-06 23:11] VITALS: BP 115/55
[2017-03-07 03:00] VITALS: BP 113/55
[2017-03-07] MEDS: LEVOTHYROXINE 150 MCG TABLET PO SCH (06:33)
[2017-03-07 07:00] VITALS: BP 121/52
[2017-03-07] MEDS: PANTOPRAZOLE 40 MG TABLET.DR. PO SCH (07:33)
[2017-03-07] MEDS: INSULIN ASPART 300 UNITS/3 ML INSULN.PEN SQ SCH ×2 (07:35→12:09)
[2017-03-07] MEDS: IPRATRPIUM/ALBUTEROL 0.5/2.5MG 3 ML NEBU. NEB SCH ×4 (07:42→19:28)
[2017-03-07 07:53] LABS: BASO % 0 % (0-3); EOS % 1 % (0-3); HEMATOCRIT 23.9 % (36.0-47.0); HEMOGLOBIN 7.6 g/dL (12.0-15.5); LYMPH # 0.9 x10^3/uL (1.0-4.8); LYMPH % 12 % (24-48); MEAN CORPUSCULAR HEMOGLOBIN 32 pg (25-35); MEAN CORPUSCULAR HGB CONC 32 g/dL (31-37); MEAN CORPUSCULAR VOLUME 99 fL (79-100); MONO % 7 % (0-9); NEUT % 80 % (31-73); PLATELET COUNT 205 x10^3/uL (140-400); RED BLOOD COUNT 2.41 x10^6/uL (3.50-5.40); RED CELL DISTRIBUTION WIDTH 16.1 % (11.5-14.5); WHITE BLOOD COUNT 7.1 x10^3/uL (4.0-11.0)
[2017-03-07 08:52] LABS: ALBUMIN 2.6 g/dL (3.4-5.0); ALBUMIN/GLOBULIN RATIO 0.8 (1.0-1.7); CALCIUM 8.3 mg/dL (8.5-10.1); CREATININE 4.1 mg/dL (0.6-1.0); GFR 10.3; MAGNESIUM 1.6 mg/dL (1.8-2.4); POTASSIUM 5.3 mmol/L (3.5-5.1); TOTAL BILIRUBIN 0.2 mg/dL (0.2-1.0); TOTAL PROTEIN 5.9 g/dL (6.4-8.2)
[2017-03-07] MEDS: METOPROLOL TART IMMED RELEASE 50 MG TABLET. PO SCH ×2 (09:00→20:08)
[2017-03-07] MEDS: FUROSEMIDE 40 MG/4 ML VIAL. IVP SCH (09:49)
--- NOTE | 2017-03-07 10:00 | PDOC ---
GENERAL General: vss and afebrile. awake and alert. good appetitie and no complaints of sob today. complains of chest pain with cough and has anterior chest wall tenderness related to fall prior to admission. Hb has decreased to 7.6. BUN increased to 84 and creatinine increased to 4.1. K+ is up at 5.3. sugars remain somewhat elevated. difficult situation in that kidney function will not allow diuresis she needs for chf. my thought would be as long as she has appetite, no sob, and no major complaints to adjust meds best we can which will necessarily make kidneys look worse. will follow labs and get therapy eval. Problems: VITAL SIGNS Vital Signs: Vital Signs Date Time Temp Pulse Resp B/P (MAP) Pulse Ox O2 Delivery O2 Flow Rate FiO2 03/07/17 09:00 56 121/52 03/07/17 07:43 Nasal Cannula 3.0 03/07/17 07:00 98.1 14 94 98.1 I & O I & O Intake and Output 03/07/17 07:00 Intake Total 410 ml Balance 410 ml Intake Oral 410 ml # Voids 6 ALLERGIES Allergies: Allergies Coded Allergies Type Severity Reaction Last Updated Verified No Known Drug Allergies 10/20/13 No MEDS Medications: Current Medications Medications (Trade) Dose Ordered Sig/Silvano Start Time Stop Time Status Last Admin Dose Admin Albuterol/ Ipratropium (Duoneb) 3 ml RTQID 03/06/17 12:00 03/07/17 07:42 3 ML Atorvastatin Calcium (Lipitor) 10 mg QHS 03/06/17 21:00 03/06/17 20:55 10 MG Azithromycin 250 ml @ 250 mls/hr 1X ONCE 03/06/17 01:00 03/06/17 01:59 DC 03/06/17 01:12 250 MLS/HR Ceftriaxone Sodium 1 gm/ Sodium Chloride 50 ml @ 100 mls/hr Q24H 03/06/17 23:00 03/06/17 22:43 100 MLS/HR Ceftriaxone Sodium 50 ml @ 100 mls/hr 1X ONCE 03/06/17 00:30 03/06/17 00:59 DC 03/06/17 00:49 100 MLS/HR Dextrose (Dextrose 50%-Water Syringe) 12.5 gm PRN Q15MIN PRN 03/06/17 11:15 Furosemide (Lasix) 40 mg DAILY 03/06/17 10:00 03/07/17 09:49 40 MG Insulin Aspart (NovoLOG) 0-5 UNITS TIDWMEALS 03/06/17 12:00 03/07/17 07:35 3 UNITS Levothyroxine Sodium (Synthroid) 150 mcg DAILY07 03/07/17 07:00 03/07/17 06:33 150 MCG Losartan Potassium (Cozaar) 100 mg DAILY 03/06/17 14:00 03/06/17 14:25 100 MG Metoprolol Tartrate (Lopressor) 50 mg BID 03/06/17 14:00 03/06/17 14:25 50 MG Morphine Sulfate 2 mg PRN Q2HR PRN 03/06/17 01:15 03/07/17 01:14 DC Ondansetron HCl (Zofran) 4 mg PRN Q8HRS PRN 03/06/17 01:15 03/07/17 01:14 DC Pantoprazole Sodium (Protonix) 40 mg DAILYAC 03/06/17 11:30 03/07/17 07:33 40 MG LAB Lab: Laboratory Tests Test 03/06/17 11:09 03/06/17 16:00 03/07/17 07:10 03/07/17 07:12 Glucose (Fingerstick) 286 mg/dL (70-99) 345 mg/dL (70-99) 239 mg/dL (70-99) White Blood Count 7.1 x10^3/uL (4.0-11.0) Red Blood Count 2.41 x10^6/uL (3.50-5.40) Hemoglobin 7.6 g/dL (12.0-15.5) Hematocrit 23.9 % (36.0-47.0) Mean Corpuscular Volume 99 fL (79-100) Mean Corpuscular Hemoglobin 32 pg (25-35) Mean Corpuscular Hemoglobin Concent 32 g/dL (31-37) Red Cell Distribution Width 16.1 % (11.5-14.5) Platelet Count 205 x10^3/uL (140-400) Neutrophils (%) (Auto) 80 % (31-73) Lymphocytes (%) (Auto) 12 % (24-48) Monocytes (%) (Auto) 7 % (0-9) Eosinophils (%) (Auto) 1 % (0-3) Basophils (%) (Auto) 0 % (0-3) Neutrophils # (Auto) 5.6 x10^3uL (1.8-7.7) Lymphocytes # (Auto) 0.9 x10^3/uL (1.0-4.8) Monocytes # (Auto) 0.5 x10^3/uL (0.0-1.1) Eosinophils # (Auto) 0.1 x10^3/uL (0.0-0.7) Basophils # (Auto) 0.0 x10^3/uL (0.0-0.2) Sodium Level 137 mmol/L (136-145) Potassium Level 5.3 mmol/L (3.5-5.1) Chloride Level 102 mmol/L (98-107) Carbon Dioxide Level 26 mmol/L (21-32) Anion Gap 9 (6-14) Blood Urea Nitrogen 84 mg/dL (7-20) Creatinine 4.1 mg/dL (0.6-1.0) Estimated GFR (Cockcroft-Gault) 10.3 BUN/Creatinine Ratio 20 (6-20) Glucose Level 237 mg/dL (70-99) Calcium Level 8.3 mg/dL (8.5-10.1) Magnesium Level 1.6 mg/dL (1.8-2.4) Total Bilirubin 0.2 mg/dL (0.2-1.0) Aspartate Amino Transf (AST/SGOT) 17 U/L (15-37) Alanine Aminotransferase (ALT/SGPT) 13 U/L (14-59) Alkaline Phosphatase 44 U/L (46-116) Total Protein 5.9 g/dL (6.4-8.2) Albumin 2.6 g/dL (3.4-5.0) Albumin/Globulin Ratio 0.8 (1.0-1.7) JESSICA GREWAL MD March 07, 2017 09:59
[2017-03-07] MEDS: LOSARTAN POTASSIUM 50 MG TABLET. PO SCH (10:28)
--- NOTE | 2017-03-07 10:28 | PDOC ---
PULMONARY PROGRESS NOTES Subjective on 02, sob is slightly better. has occ cough, has chest wall pain, no runny nose Vitals Vital Signs Date Time Temp Pulse Resp B/P (MAP) Pulse Ox O2 Delivery O2 Flow Rate FiO2 03/07/17 09:00 56 121/52 03/07/17 07:43 Nasal Cannula 3.0 03/07/17 07:00 98.1 14 94 98.1 ROS: No Nausea General: Alert HEENT: Other (nc at perrl, nose throat clear) Lungs: Crackles Cardiovascular: S1, S2 Abdomen: Soft, Non-tender Neuro Exam: Alert Extremities: No Edema Skin: Other (chronic changes) Labs Laboratory Tests Test 03/05/17 23:10 03/05/17 23:40 03/06/17 11:09 03/06/17 16:00 White Blood Count 10.5 x10^3/uL (4.0-11.0) Red Blood Count 2.88 x10^6/uL (3.50-5.40) Hemoglobin 9.4 g/dL (12.0-15.5) Hematocrit 28.3 % (36.0-47.0) Mean Corpuscular Volume 98 fL (79-100) Mean Corpuscular Hemoglobin 33 pg (25-35) Mean Corpuscular Hemoglobin Concent 33 g/dL (31-37) Red Cell Distribution Width 15.9 % (11.5-14.5) Platelet Count 313 x10^3/uL (140-400) Neutrophils (%) (Auto) 89 % (31-73) Lymphocytes (%) (Auto) 7 % (24-48) Monocytes (%) (Auto) 3 % (0-9) Eosinophils (%) (Auto) 0 % (0-3) Basophils (%) (Auto) 0 % (0-3) Neutrophils # (Auto) 9.3 x10^3uL (1.8-7.7) Lymphocytes # (Auto) 0.7 x10^3/uL (1.0-4.8) Monocytes # (Auto) 0.4 x10^3/uL (0.0-1.1) Eosinophils # (Auto) 0.0 x10^3/uL (0.0-0.7) Basophils # (Auto) 0.0 x10^3/uL (0.0-0.2) Segmented Neutrophils % 73 % (35-66) Band Neutrophils % 19 % (0-9) Lymphocytes % 8 % (24-48) Platelet Estimate Adequate (ADEQUATE) Anisocytosis Slight Ovalocytes Occ Sodium Level 136 mmol/L (136-145) Potassium Level 5.0 mmol/L (3.5-5.1) Chloride Level 100 mmol/L (98-107) Carbon Dioxide Level 22 mmol/L (21-32) Anion Gap 14 (6-14) Blood Urea Nitrogen 80 mg/dL (7-20) Creatinine 3.7 mg/dL (0.6-1.0) Estimated GFR (Cockcroft-Gault) 11.6 BUN/Creatinine Ratio 22 (6-20) Glucose Level 302 mg/dL (70-99) Calcium Level 8.4 mg/dL (8.5-10.1) Total Bilirubin 0.5 mg/dL (0.2-1.0) Aspartate Amino Transf (AST/SGOT) 22 U/L (15-37) Alanine Aminotransferase (ALT/SGPT) 15 U/L (14-59) Alkaline Phosphatase 51 U/L (46-116) Troponin I Quantitative < 0.017 ng/mL (0.000-0.055) JP-Oao-H-Type Natriuretic Peptide 44154 pg/mL (0-449) Total Protein 7.5 g/dL (6.4-8.2) Albumin 3.1 g/dL (3.4-5.0) Albumin/Globulin Ratio 0.7 (1.0-1.7) Lactic Acid Level 2.5 mmol/L (0.4-2.0) Glucose (Fingerstick) 286 mg/dL (70-99) 345 mg/dL (70-99) Test 03/07/17 07:10 03/07/17 07:12 White Blood Count 7.1 x10^3/uL (4.0-11.0) Red Blood Count 2.41 x10^6/uL (3.50-5.40) Hemoglobin 7.6 g/dL (12.0-15.5) Hematocrit 23.9 % (36.0-47.0) Mean Corpuscular Volume 99 fL (79-100) Mean Corpuscular Hemoglobin 32 pg (25-35) Mean Corpuscular Hemoglobin Concent 32 g/dL (31-37) Red Cell Distribution Width 16.1 % (11.5-14.5) Platelet Count 205 x10^3/uL (140-400) Neutrophils (%) (Auto) 80 % (31-73) Lymphocytes (%) (Auto) 12 % (24-48) Monocytes (%) (Auto) 7 % (0-9) Eosinophils (%) (Auto) 1 % (0-3) Basophils (%) (Auto) 0 % (0-3) Neutrophils # (Auto) 5.6 x10^3uL (1.8-7.7) Lymphocytes # (Auto) 0.9 x10^3/uL (1.0-4.8) Monocytes # (Auto) 0.5 x10^3/uL (0.0-1.1) Eosinophils # (Auto) 0.1 x10^3/uL (0.0-0.7) Basophils # (Auto) 0.0 x10^3/uL (0.0-0.2) Sodium Level 137 mmol/L (136-145) Potassium Level 5.3 mmol/L (3.5-5.1) Chloride Level 102 mmol/L (98-107) Carbon Dioxide Level 26 mmol/L (21-32) Anion Gap 9 (6-14) Blood Urea Nitrogen 84 mg/dL (7-20) Creatinine 4.1 mg/dL (0.6-1.0) Estimated GFR (Cockcroft-Gault) 10.3 BUN/Creatinine Ratio 20 (6-20) Glucose Level 237 mg/dL (70-99) Calcium Level 8.3 mg/dL (8.5-10.1) Magnesium Level 1.6 mg/dL (1.8-2.4) Total Bilirubin 0.2 mg/dL (0.2-1.0) Aspartate Amino Transf (AST/SGOT) 17 U/L (15-37) Alanine Aminotransferase (ALT/SGPT) 13 U/L (14-59) Alkaline Phosphatase 44 U/L (46-116) Total Protein 5.9 g/dL (6.4-8.2) Albumin 2.6 g/dL (3.4-5.0) Albumin/Globulin Ratio 0.8 (1.0-1.7) Glucose (Fingerstick) 239 mg/dL (70-99) Laboratory Tests Test 03/06/17 11:09 03/06/17 16:00 03/07/17 07:10 03/07/17 07:12 Glucose (Fingerstick) 286 mg/dL (70-99) 345 mg/dL (70-99) 239 mg/dL (70-99) White Blood Count 7.1 x10^3/uL (4.0-11.0) Red Blood Count 2.41 x10^6/uL (3.50-5.40) Hemoglobin 7.6 g/dL (12.0-15.5) Hematocrit 23.9 % (36.0-47.0) Mean Corpuscular Volume 99 fL (79-100) Mean Corpuscular Hemoglobin 32 pg (25-35) Mean Corpuscular Hemoglobin Concent 32 g/dL (31-37) Red Cell Distribution Width 16.1 % (11.5-14.5) Platelet Count 205 x10^3/uL (140-400) Neutrophils (%) (Auto) 80 % (31-73) Lymphocytes (%) (Auto) 12 % (24-48) Monocytes (%) (Auto) 7 % (0-9) Eosinophils (%) (Auto) 1 % (0-3) Basophils (%) (Auto) 0 % (0-3) Neutrophils # (Auto) 5.6 x10^3uL (1.8-7.7) Lymphocytes # (Auto) 0.9 x10^3/uL (1.0-4.8) Monocytes # (Auto) 0.5 x10^3/uL (0.0-1.1) Eosinophils # (Auto) 0.1 x10^3/uL (0.0-0.7) Basophils # (Auto) 0.0 x10^3/uL (0.0-0.2) Sodium Level 137 mmol/L (136-145) Potassium Level 5.3 mmol/L (3.5-5.1) Chloride Level 102 mmol/L (98-107) Carbon Dioxide Level 26 mmol/L (21-32) Anion Gap 9 (6-14) Blood Urea Nitrogen 84 mg/dL (7-20) Creatinine 4.1 mg/dL (0.6-1.0) Estimated GFR (Cockcroft-Gault) 10.3 BUN/Creatinine Ratio 20 (6-20) Glucose Level 237 mg/dL (70-99) Calcium Level 8.3 mg/dL (8.5-10.1) Magnesium Level 1.6 mg/dL (1.8-2.4) Total Bilirubin 0.2 mg/dL (0.2-1.0) Aspartate Amino Transf (AST/SGOT) 17 U/L (15-37) Alanine Aminotransferase (ALT/SGPT) 13 U/L (14-59) Alkaline Phosphatase 44 U/L (46-116) Total Protein 5.9 g/dL (6.4-8.2) Albumin 2.6 g/dL (3.4-5.0) Albumin/Globulin Ratio 0.8 (1.0-1.7) Medications Active Scripts Medications Dose Route/Sig Max Daily Dose Days Date Category Levothyroxine Sodium 150 Mcg Tablet 1 Tab PO DAILY 03/06/17 Reported Ferrous Sulfate 325 Mg Tablet 65 Mg PO DAILY 03/06/17 Reported B-12 (Cyanocobalamin (Vitamin B-12)) 1,000 Mcg Tablet 1,000 Mcg PO DAILY 03/06/17 Reported Bystolic (Nebivolol) 10 Mg Tablet 10 Mg PO DAILY 03/06/17 Reported Furosemide 40 Mg Tablet 1 Tab PO DAILY 03/06/17 Reported Prochlorperazine Maleate 10 Mg Tablet 1 Tab PO Q6HRS 03/06/17 Reported Ondansetron Hcl 4 Mg Tablet 1 Tab PO PRN Q6HRS 03/06/17 Reported Pantoprazole Sodium 40 Mg Tablet.dr 1 Tab PO DAILY 04/08/16 Reported Losartan Potassium 100 Mg Tablet 100 Mg PO DAILY 02/03/14 Reported Glimepiride 4 Mg Tablet 4 Mg PO DAILY 10/19/13 Reported Janumet Xr 50-1,000 Mg Tablet (Sitagliptin Phos/Metformin Hcl) 1 Each Tbmp.24hr 1 Tab PO BID 10/19/13 Reported Mevacor (Lovastatin) 40 Mg Tablet 40 Mg PO DAILY 10/19/13 Reported Impression . IMPRESSION: 1. Acute respiratory failure, multifactorial in etiology including acute diastolic congestive heart failure, volume overload secondary to acute kidney injury versus others. 2. Abnormal chest x-ray. 3. Acute diastolic congestive heart failure. 4. Acute kidney injury. 5. Chronic kidney disease. 6. Anemia. 7. Hypertension. 8. Diabetes mellitus. 9. 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 Plan . PLAN AND RECOMMENDATIONS: 1. Titrate FiO2 to keep O2 saturation 92%. 2. bronchodilator. 3. Gentle diuresis. Monitor kidney function very closely. 4. Protonix for stress ulcer prophylaxis. 5. She has IVC filter. 6. fu Blood culture. 7. Continue Rocephin. 8. fall precaution The findings and recommendations were discussed with the patient and rn. They understood and agreed to proceed with the plan. JESUS CARRENO MD March 07, 2017 10:28
[2017-03-07 11:00] VITALS: BP 129/60
--- NOTE | 2017-03-07 12:08 | PDOC ---
PROGRESS NOTES Subjective Subjective SEEN IN FOLLOW UP OF CKD5 Objective Objective Vital Signs Date Time Temp Pulse Resp B/P (MAP) Pulse Ox O2 Delivery O2 Flow Rate FiO2 03/07/17 11:12 93 Nasal Cannula 3.0 03/07/17 11:00 98.6 60 16 129/60 (83) 98.6 Intake and Output 03/07/17 07:00 Intake Total 410 ml Balance 410 ml Intake Oral 410 ml # Voids 6 Physical Exam Abdomen: Normal bowel sounds, Soft, No tenderness, No hepatosplenomegaly, No masses Heart: Regular rate, Normal S1, Normal S2, No murmurs, Gallops Extremities: No clubbing, No cyanosis, No edema, Normal pulses, No tenderness/ swelling General: Alert, Oriented X3, Cooperative, No acute distress Lungs: Clear to auscultation, Normal air movement Psych/Mental Status: Mental status NL, Mood NL Diagnosis RENAL FAILURE: Chronic (CKD stage V) Assessment Assessment Problems Medical Problems: (1) Acute on chronic renal failure Status: Acute (2) Hypoxia Status: Acute (3) Pneumonia Status: Acute Plan Plan of Care CONT RX OF DIASTOLIC DYSFUNCTION. ANTICIPATE MED RX AND NO DIALYSIS WILL BE HER WISH Comment Review of Relevant I have reviewed the following items jong (where applicable) has been applied. Labs Laboratory Tests Test 03/05/17 23:10 03/05/17 23:40 03/06/17 11:09 03/06/17 16:00 White Blood Count 10.5 x10^3/uL (4.0-11.0) Red Blood Count 2.88 x10^6/uL (3.50-5.40) Hemoglobin 9.4 g/dL (12.0-15.5) Hematocrit 28.3 % (36.0-47.0) Mean Corpuscular Volume 98 fL (79-100) Mean Corpuscular Hemoglobin 33 pg (25-35) Mean Corpuscular Hemoglobin Concent 33 g/dL (31-37) Red Cell Distribution Width 15.9 % (11.5-14.5) Platelet Count 313 x10^3/uL (140-400) Neutrophils (%) (Auto) 89 % (31-73) Lymphocytes (%) (Auto) 7 % (24-48) Monocytes (%) (Auto) 3 % (0-9) Eosinophils (%) (Auto) 0 % (0-3) Basophils (%) (Auto) 0 % (0-3) Neutrophils # (Auto) 9.3 x10^3uL (1.8-7.7) Lymphocytes # (Auto) 0.7 x10^3/uL (1.0-4.8) Monocytes # (Auto) 0.4 x10^3/uL (0.0-1.1) Eosinophils # (Auto) 0.0 x10^3/uL (0.0-0.7) Basophils # (Auto) 0.0 x10^3/uL (0.0-0.2) Segmented Neutrophils % 73 % (35-66) Band Neutrophils % 19 % (0-9) Lymphocytes % 8 % (24-48) Platelet Estimate Adequate (ADEQUATE) Anisocytosis Slight Ovalocytes Occ Sodium Level 136 mmol/L (136-145) Potassium Level 5.0 mmol/L (3.5-5.1) Chloride Level 100 mmol/L (98-107) Carbon Dioxide Level 22 mmol/L (21-32) Anion Gap 14 (6-14) Blood Urea Nitrogen 80 mg/dL (7-20) Creatinine 3.7 mg/dL (0.6-1.0) Estimated GFR (Cockcroft-Gault) 11.6 BUN/Creatinine Ratio 22 (6-20) Glucose Level 302 mg/dL (70-99) Calcium Level 8.4 mg/dL (8.5-10.1) Total Bilirubin 0.5 mg/dL (0.2-1.0) Aspartate Amino Transf (AST/SGOT) 22 U/L (15-37) Alanine Aminotransferase (ALT/SGPT) 15 U/L (14-59) Alkaline Phosphatase 51 U/L (46-116) Troponin I Quantitative < 0.017 ng/mL (0.000-0.055) ZC-Buf-P-Type Natriuretic Peptide 46602 pg/mL (0-449) Total Protein 7.5 g/dL (6.4-8.2) Albumin 3.1 g/dL (3.4-5.0) Albumin/Globulin Ratio 0.7 (1.0-1.7) Lactic Acid Level 2.5 mmol/L (0.4-2.0) Glucose (Fingerstick) 286 mg/dL (70-99) 345 mg/dL (70-99) Test 03/07/17 07:10 03/07/17 07:12 03/07/17 11:24 White Blood Count 7.1 x10^3/uL (4.0-11.0) Red Blood Count 2.41 x10^6/uL (3.50-5.40) Hemoglobin 7.6 g/dL (12.0-15.5) Hematocrit 23.9 % (36.0-47.0) Mean Corpuscular Volume 99 fL (79-100) Mean Corpuscular Hemoglobin 32 pg (25-35) Mean Corpuscular Hemoglobin Concent 32 g/dL (31-37) Red Cell Distribution Width 16.1 % (11.5-14.5) Platelet Count 205 x10^3/uL (140-400) Neutrophils (%) (Auto) 80 % (31-73) Lymphocytes (%) (Auto) 12 % (24-48) Monocytes (%) (Auto) 7 % (0-9) Eosinophils (%) (Auto) 1 % (0-3) Basophils (%) (Auto) 0 % (0-3) Neutrophils # (Auto) 5.6 x10^3uL (1.8-7.7) Lymphocytes # (Auto) 0.9 x10^3/uL (1.0-4.8) Monocytes # (Auto) 0.5 x10^3/uL (0.0-1.1) Eosinophils # (Auto) 0.1 x10^3/uL (0.0-0.7) Basophils # (Auto) 0.0 x10^3/uL (0.0-0.2) Sodium Level 137 mmol/L (136-145) Potassium Level 5.3 mmol/L (3.5-5.1) Chloride Level 102 mmol/L (98-107) Carbon Dioxide Level 26 mmol/L (21-32) Anion Gap 9 (6-14) Blood Urea Nitrogen 84 mg/dL (7-20) Creatinine 4.1 mg/dL (0.6-1.0) Estimated GFR (Cockcroft-Gault) 10.3 BUN/Creatinine Ratio 20 (6-20) Glucose Level 237 mg/dL (70-99) Calcium Level 8.3 mg/dL (8.5-10.1) Magnesium Level 1.6 mg/dL (1.8-2.4) Total Bilirubin 0.2 mg/dL (0.2-1.0) Aspartate Amino Transf (AST/SGOT) 17 U/L (15-37) Alanine Aminotransferase (ALT/SGPT) 13 U/L (14-59) Alkaline Phosphatase 44 U/L (46-116) Total Protein 5.9 g/dL (6.4-8.2) Albumin 2.6 g/dL (3.4-5.0) Albumin/Globulin Ratio 0.8 (1.0-1.7) Glucose (Fingerstick) 239 mg/dL (70-99) 287 mg/dL (70-99) Laboratory Tests Test 03/06/17 16:00 03/07/17 07:10 03/07/17 07:12 03/07/17 11:24 Glucose (Fingerstick) 345 mg/dL (70-99) 239 mg/dL (70-99) 287 mg/dL (70-99) White Blood Count 7.1 x10^3/uL (4.0-11.0) Red Blood Count 2.41 x10^6/uL (3.50-5.40) Hemoglobin 7.6 g/dL (12.0-15.5) Hematocrit 23.9 % (36.0-47.0) Mean Corpuscular Volume 99 fL (79-100) Mean Corpuscular Hemoglobin 32 pg (25-35) Mean Corpuscular Hemoglobin Concent 32 g/dL (31-37) Red Cell Distribution Width 16.1 % (11.5-14.5) Platelet Count 205 x10^3/uL (140-400) Neutrophils (%) (Auto) 80 % (31-73) Lymphocytes (%) (Auto) 12 % (24-48) Monocytes (%) (Auto) 7 % (0-9) Eosinophils (%) (Auto) 1 % (0-3) Basophils (%) (Auto) 0 % (0-3) Neutrophils # (Auto) 5.6 x10^3uL (1.8-7.7) Lymphocytes # (Auto) 0.9 x10^3/uL (1.0-4.8) Monocytes # (Auto) 0.5 x10^3/uL (0.0-1.1) Eosinophils # (Auto) 0.1 x10^3/uL (0.0-0.7) Basophils # (Auto) 0.0 x10^3/uL (0.0-0.2) Sodium Level 137 mmol/L (136-145) Potassium Level 5.3 mmol/L (3.5-5.1) Chloride Level 102 mmol/L (98-107) Carbon Dioxide Level 26 mmol/L (21-32) Anion Gap 9 (6-14) Blood Urea Nitrogen 84 mg/dL (7-20) Creatinine 4.1 mg/dL (0.6-1.0) Estimated GFR (Cockcroft-Gault) 10.3 BUN/Creatinine Ratio 20 (6-20) Glucose Level 237 mg/dL (70-99) Calcium Level 8.3 mg/dL (8.5-10.1) Magnesium Level 1.6 mg/dL (1.8-2.4) Total Bilirubin 0.2 mg/dL (0.2-1.0) Aspartate Amino Transf (AST/SGOT) 17 U/L (15-37) Alanine Aminotransferase (ALT/SGPT) 13 U/L (14-59) Alkaline Phosphatase 44 U/L (46-116) Total Protein 5.9 g/dL (6.4-8.2) Albumin 2.6 g/dL (3.4-5.0) Albumin/Globulin Ratio 0.8 (1.0-1.7) Microbiology 03/05/17 Blood Culture - Preliminary, Resulted NO GROWTH AFTER 1 DAY Medications Current Medications Ceftriaxone Sodium 1 gm/ Sodium Chloride 50 ml @ 100 mls/hr Q24H IV Last administered on 03/06/17 22:43; Start 03/06/17 at 23:00 Azithromycin 250 ml @ 250 mls/hr 1X ONCE IV Last administered on 03/06/17 01 :12; Start 03/06/17 at 01:00; Stop 03/06/17 at 01:59; Status DC Ceftriaxone Sodium 50 ml @ 100 mls/hr 1X ONCE IV Last administered on 00:49; Start 03/06/17 at 00:30; Stop 03/06/17 at 00:59; Status DC Ondansetron HCl (Zofran) 4 mg PRN Q8HRS PRN IV NAUSEA/VOMITING; Start 03/06/17 at 01:15; Stop 03/07/17 at 01:14; Status DC Morphine Sulfate 2 mg PRN Q2HR PRN IV SEVERE PAIN; Start 03/06/17 at 01:15; Stop 03/07/17 at 01:14; Status DC Furosemide (Lasix) 40 mg DAILY IVP Last administered on 03/07/17 09:49; Start 03/06/17 at 10:00 Pantoprazole Sodium (Protonix) 40 mg DAILYAC PO Last administered on 03/07/17 07:33; Start 03/06/17 at 11:30 Albuterol/ Ipratropium (Duoneb) 3 ml RTQID NEB Last administered on 03/07/17 11:12; Start 03/06/17 at 12:00 Insulin Aspart (NovoLOG) 0-5 UNITS TIDWMEALS SQ Last administered on 03/07/17 07:35; Start 03/06/17 at 12:00 Dextrose (Dextrose 50%-Water Syringe) 12.5 gm PRN Q15MIN PRN IV SEE COMMENTS; Start 03/06/17 at 11:15 Levothyroxine Sodium (Synthroid) 100 mcg DAILY07 PO Last administered on 14:24; Start 03/06/17 at 14:00; Stop 03/06/17 at 15:30; Status DC Losartan Potassium (Cozaar) 100 mg DAILY PO Last administered on 03/07/17 10: 28; Start 03/06/17 at 14:00 Atorvastatin Calcium (Lipitor) 10 mg QHS PO Last administered on 03/06/17 20: 55; Start 03/06/17 at 21:00 Metoprolol Tartrate (Lopressor) 50 mg BID PO Last administered on 03/06/17 14: 25; Start 03/06/17 at 14:00 Levothyroxine Sodium (Synthroid) 200 mcg WEEKLY@0700 PO ; Start 03/12/17 at 07: 00; Stop 03/12/17 at 07:00; Status DC Levothyroxine Sodium (Synthroid) 150 mcg DAILY07 PO Last administered on 06:33; Start 03/07/17 at 07:00 Active Scripts Active Reported Levothyroxine Sodium 150 Mcg Tablet 1 Tab PO DAILY Ferrous Sulfate 325 Mg Tablet 65 Mg PO DAILY B-12 (Cyanocobalamin (Vitamin B-12)) 1,000 Mcg Tablet 1,000 Mcg PO DAILY Bystolic (Nebivolol) 10 Mg Tablet 10 Mg PO DAILY Furosemide 40 Mg Tablet 1 Tab PO DAILY Prochlorperazine Maleate 10 Mg Tablet 1 Tab PO Q6HRS Ondansetron Hcl 4 Mg Tablet 1 Tab PO PRN Q6HRS Pantoprazole Sodium 40 Mg Tablet.dr 1 Tab PO DAILY Losartan Potassium 100 Mg Tablet 100 Mg PO DAILY Glimepiride 4 Mg Tablet 4 Mg PO DAILY Janumet Xr 50-1,000 Mg Tablet (Sitagliptin Phos/Metformin Hcl) 1 Each Tbmp.24hr 1 Tab PO BID Mevacor (Lovastatin) 40 Mg Tablet 40 Mg PO DAILY Vitals/I & O Vital Sign - Last 24 Hours 03/06/17 03/06/17 03/06/17 03/06/17 14:25 14:25 14:56 15:30 Temp 97.8 97.8 Pulse 59 59 59 Resp 20 B/P (MAP) 136/40 136/40 119/45 (69) Pulse Ox 99 99 O2 Delivery Nasal Cannula Nasal Cannula O2 Flow Rate 3.0 3.0 03/06/17 03/06/17 03/06/17 03/06/17 19:00 19:46 20:00 20:55 Temp 98.2 98.2 Pulse 63 60 Resp 17 B/P (MAP) 91/42 (58) 91/54 Pulse Ox 95 95 O2 Delivery Nasal Cannula Nasal Cannula Nasal Cannula O2 Flow Rate 3.0 3.0 3.0 03/06/17 03/07/17 03/07/17 03/07/17 23:11 03:00 07:00 07:30 Temp 97.5 97.9 98.1 97.5 97.9 98.1 Pulse 57 50 56 Resp 15 14 14 B/P (MAP) 115/55 (75) 113/55 (74) 121/52 (75) Pulse Ox 99 100 94 O2 Delivery Nasal Cannula Nasal Cannula Nasal Cannula Nasal Cannula O2 Flow Rate 3.0 3.0 3.0 03/07/17 03/07/17 03/07/17 03/07/17 07:43 09:00 10:28 11:00 Temp 98.6 98.6 Pulse 56 56 60 Resp 16 B/P (MAP) 121/52 121/52 129/60 (83) Pulse Ox 95 O2 Delivery Nasal Cannula Nasal Cannula O2 Flow Rate 3.0 3.0 03/07/17 11:12 Pulse Ox 93 O2 Delivery Nasal Cannula O2 Flow Rate 3.0 Intake and Output 03/06/17 03/06/17 03/07/17 15:00 23:00 07:00 Intake Total 250 ml 160 ml Balance 250 ml 160 ml JESSICA ESTES MD March 07, 2017 12:08
--- NOTE | 2017-03-07 12:11 | PDOC ---
PROGRESS NOTES Subjective Subjective Patient complains of chest wall pain Objective Objective Vital Signs Date Time Temp Pulse Resp B/P (MAP) Pulse Ox O2 Delivery O2 Flow Rate FiO2 03/07/17 11:12 93 Nasal Cannula 3.0 03/07/17 11:00 98.6 60 16 129/60 (83) 98.6 Intake and Output 03/07/17 07:00 Intake Total 410 ml Balance 410 ml Intake Oral 410 ml # Voids 6 Physical Exam Physical Exam No changes in cardiac exam Assessment Assessment The patient's chest wall pain is probably due to her fall with bruising to the area. The renal situation seems to be getting worse but if she is not going to do dialysis then all that we could do would be to continue with medications and sent her home at some point. May need to consider hospice at home. Comment Review of Relevant I have reviewed the following items jong (where applicable) has been applied. Labs Laboratory Tests Test 03/05/17 23:10 03/05/17 23:40 03/06/17 11:09 03/06/17 16:00 White Blood Count 10.5 x10^3/uL (4.0-11.0) Red Blood Count 2.88 x10^6/uL (3.50-5.40) Hemoglobin 9.4 g/dL (12.0-15.5) Hematocrit 28.3 % (36.0-47.0) Mean Corpuscular Volume 98 fL (79-100) Mean Corpuscular Hemoglobin 33 pg (25-35) Mean Corpuscular Hemoglobin Concent 33 g/dL (31-37) Red Cell Distribution Width 15.9 % (11.5-14.5) Platelet Count 313 x10^3/uL (140-400) Neutrophils (%) (Auto) 89 % (31-73) Lymphocytes (%) (Auto) 7 % (24-48) Monocytes (%) (Auto) 3 % (0-9) Eosinophils (%) (Auto) 0 % (0-3) Basophils (%) (Auto) 0 % (0-3) Neutrophils # (Auto) 9.3 x10^3uL (1.8-7.7) Lymphocytes # (Auto) 0.7 x10^3/uL (1.0-4.8) Monocytes # (Auto) 0.4 x10^3/uL (0.0-1.1) Eosinophils # (Auto) 0.0 x10^3/uL (0.0-0.7) Basophils # (Auto) 0.0 x10^3/uL (0.0-0.2) Segmented Neutrophils % 73 % (35-66) Band Neutrophils % 19 % (0-9) Lymphocytes % 8 % (24-48) Platelet Estimate Adequate (ADEQUATE) Anisocytosis Slight Ovalocytes Occ Sodium Level 136 mmol/L (136-145) Potassium Level 5.0 mmol/L (3.5-5.1) Chloride Level 100 mmol/L (98-107) Carbon Dioxide Level 22 mmol/L (21-32) Anion Gap 14 (6-14) Blood Urea Nitrogen 80 mg/dL (7-20) Creatinine 3.7 mg/dL (0.6-1.0) Estimated GFR (Cockcroft-Gault) 11.6 BUN/Creatinine Ratio 22 (6-20) Glucose Level 302 mg/dL (70-99) Calcium Level 8.4 mg/dL (8.5-10.1) Total Bilirubin 0.5 mg/dL (0.2-1.0) Aspartate Amino Transf (AST/SGOT) 22 U/L (15-37) Alanine Aminotransferase (ALT/SGPT) 15 U/L (14-59) Alkaline Phosphatase 51 U/L (46-116) Troponin I Quantitative < 0.017 ng/mL (0.000-0.055) EZ-Exh-U-Type Natriuretic Peptide 52517 pg/mL (0-449) Total Protein 7.5 g/dL (6.4-8.2) Albumin 3.1 g/dL (3.4-5.0) Albumin/Globulin Ratio 0.7 (1.0-1.7) Lactic Acid Level 2.5 mmol/L (0.4-2.0) Glucose (Fingerstick) 286 mg/dL (70-99) 345 mg/dL (70-99) Test 03/07/17 07:10 03/07/17 07:12 03/07/17 11:24 White Blood Count 7.1 x10^3/uL (4.0-11.0) Red Blood Count 2.41 x10^6/uL (3.50-5.40) Hemoglobin 7.6 g/dL (12.0-15.5) Hematocrit 23.9 % (36.0-47.0) Mean Corpuscular Volume 99 fL (79-100) Mean Corpuscular Hemoglobin 32 pg (25-35) Mean Corpuscular Hemoglobin Concent 32 g/dL (31-37) Red Cell Distribution Width 16.1 % (11.5-14.5) Platelet Count 205 x10^3/uL (140-400) Neutrophils (%) (Auto) 80 % (31-73) Lymphocytes (%) (Auto) 12 % (24-48) Monocytes (%) (Auto) 7 % (0-9) Eosinophils (%) (Auto) 1 % (0-3) Basophils (%) (Auto) 0 % (0-3) Neutrophils # (Auto) 5.6 x10^3uL (1.8-7.7) Lymphocytes # (Auto) 0.9 x10^3/uL (1.0-4.8) Monocytes # (Auto) 0.5 x10^3/uL (0.0-1.1) Eosinophils # (Auto) 0.1 x10^3/uL (0.0-0.7) Basophils # (Auto) 0.0 x10^3/uL (0.0-0.2) Sodium Level 137 mmol/L (136-145) Potassium Level 5.3 mmol/L (3.5-5.1) Chloride Level 102 mmol/L (98-107) Carbon Dioxide Level 26 mmol/L (21-32) Anion Gap 9 (6-14) Blood Urea Nitrogen 84 mg/dL (7-20) Creatinine 4.1 mg/dL (0.6-1.0) Estimated GFR (Cockcroft-Gault) 10.3 BUN/Creatinine Ratio 20 (6-20) Glucose Level 237 mg/dL (70-99) Calcium Level 8.3 mg/dL (8.5-10.1) Magnesium Level 1.6 mg/dL (1.8-2.4) Total Bilirubin 0.2 mg/dL (0.2-1.0) Aspartate Amino Transf (AST/SGOT) 17 U/L (15-37) Alanine Aminotransferase (ALT/SGPT) 13 U/L (14-59) Alkaline Phosphatase 44 U/L (46-116) Total Protein 5.9 g/dL (6.4-8.2) Albumin 2.6 g/dL (3.4-5.0) Albumin/Globulin Ratio 0.8 (1.0-1.7) Glucose (Fingerstick) 239 mg/dL (70-99) 287 mg/dL (70-99) Laboratory Tests Test 03/06/17 16:00 03/07/17 07:10 03/07/17 07:12 03/07/17 11:24 Glucose (Fingerstick) 345 mg/dL (70-99) 239 mg/dL (70-99) 287 mg/dL (70-99) White Blood Count 7.1 x10^3/uL (4.0-11.0) Red Blood Count 2.41 x10^6/uL (3.50-5.40) Hemoglobin 7.6 g/dL (12.0-15.5) Hematocrit 23.9 % (36.0-47.0) Mean Corpuscular Volume 99 fL (79-100) Mean Corpuscular Hemoglobin 32 pg (25-35) Mean Corpuscular Hemoglobin Concent 32 g/dL (31-37) Red Cell Distribution Width 16.1 % (11.5-14.5) Platelet Count 205 x10^3/uL (140-400) Neutrophils (%) (Auto) 80 % (31-73) Lymphocytes (%) (Auto) 12 % (24-48) Monocytes (%) (Auto) 7 % (0-9) Eosinophils (%) (Auto) 1 % (0-3) Basophils (%) (Auto) 0 % (0-3) Neutrophils # (Auto) 5.6 x10^3uL (1.8-7.7) Lymphocytes # (Auto) 0.9 x10^3/uL (1.0-4.8) Monocytes # (Auto) 0.5 x10^3/uL (0.0-1.1) Eosinophils # (Auto) 0.1 x10^3/uL (0.0-0.7) Basophils # (Auto) 0.0 x10^3/uL (0.0-0.2) Sodium Level 137 mmol/L (136-145) Potassium Level 5.3 mmol/L (3.5-5.1) Chloride Level 102 mmol/L (98-107) Carbon Dioxide Level 26 mmol/L (21-32) Anion Gap 9 (6-14) Blood Urea Nitrogen 84 mg/dL (7-20) Creatinine 4.1 mg/dL (0.6-1.0) Estimated GFR (Cockcroft-Gault) 10.3 BUN/Creatinine Ratio 20 (6-20) Glucose Level 237 mg/dL (70-99) Calcium Level 8.3 mg/dL (8.5-10.1) Magnesium Level 1.6 mg/dL (1.8-2.4) Total Bilirubin 0.2 mg/dL (0.2-1.0) Aspartate Amino Transf (AST/SGOT) 17 U/L (15-37) Alanine Aminotransferase (ALT/SGPT) 13 U/L (14-59) Alkaline Phosphatase 44 U/L (46-116) Total Protein 5.9 g/dL (6.4-8.2) Albumin 2.6 g/dL (3.4-5.0) Albumin/Globulin Ratio 0.8 (1.0-1.7) Microbiology 03/05/17 Blood Culture - Preliminary, Resulted NO GROWTH AFTER 1 DAY Medications Current Medications Ceftriaxone Sodium 1 gm/ Sodium Chloride 50 ml @ 100 mls/hr Q24H IV Last administered on 03/06/17 22:43; Start 03/06/17 at 23:00 Azithromycin 250 ml @ 250 mls/hr 1X ONCE IV Last administered on 03/06/17 01 :12; Start 03/06/17 at 01:00; Stop 03/06/17 at 01:59; Status DC Ceftriaxone Sodium 50 ml @ 100 mls/hr 1X ONCE IV Last administered on 00:49; Start 03/06/17 at 00:30; Stop 03/06/17 at 00:59; Status DC Ondansetron HCl (Zofran) 4 mg PRN Q8HRS PRN IV NAUSEA/VOMITING; Start 03/06/17 at 01:15; Stop 03/07/17 at 01:14; Status DC Morphine Sulfate 2 mg PRN Q2HR PRN IV SEVERE PAIN; Start 03/06/17 at 01:15; Stop 03/07/17 at 01:14; Status DC Furosemide (Lasix) 40 mg DAILY IVP Last administered on 03/07/17 09:49; Start 03/06/17 at 10:00 Pantoprazole Sodium (Protonix) 40 mg DAILYAC PO Last administered on 03/07/17 07:33; Start 03/06/17 at 11:30 Albuterol/ Ipratropium (Duoneb) 3 ml RTQID NEB Last administered on 03/07/17 11:12; Start 03/06/17 at 12:00 Insulin Aspart (NovoLOG) 0-5 UNITS TIDWMEALS SQ Last administered on 03/07/17 07:35; Start 03/06/17 at 12:00 Dextrose (Dextrose 50%-Water Syringe) 12.5 gm PRN Q15MIN PRN IV SEE COMMENTS; Start 03/06/17 at 11:15 Levothyroxine Sodium (Synthroid) 100 mcg DAILY07 PO Last administered on 14:24; Start 03/06/17 at 14:00; Stop 03/06/17 at 15:30; Status DC Losartan Potassium (Cozaar) 100 mg DAILY PO Last administered on 03/07/17 10: 28; Start 03/06/17 at 14:00 Atorvastatin Calcium (Lipitor) 10 mg QHS PO Last administered on 03/06/17 20: 55; Start 03/06/17 at 21:00 Metoprolol Tartrate (Lopressor) 50 mg BID PO Last administered on 03/06/17 14: 25; Start 03/06/17 at 14:00 Levothyroxine Sodium (Synthroid) 200 mcg WEEKLY@0700 PO ; Start 03/12/17 at 07: 00; Stop 03/12/17 at 07:00; Status DC Levothyroxine Sodium (Synthroid) 150 mcg DAILY07 PO Last administered on 06:33; Start 03/07/17 at 07:00 Active Scripts Active Reported Levothyroxine Sodium 150 Mcg Tablet 1 Tab PO DAILY Ferrous Sulfate 325 Mg Tablet 65 Mg PO DAILY B-12 (Cyanocobalamin (Vitamin B-12)) 1,000 Mcg Tablet 1,000 Mcg PO DAILY Bystolic (Nebivolol) 10 Mg Tablet 10 Mg PO DAILY Furosemide 40 Mg Tablet 1 Tab PO DAILY Prochlorperazine Maleate 10 Mg Tablet 1 Tab PO Q6HRS Ondansetron Hcl 4 Mg Tablet 1 Tab PO PRN Q6HRS Pantoprazole Sodium 40 Mg Tablet.dr 1 Tab PO DAILY Losartan Potassium 100 Mg Tablet 100 Mg PO DAILY Glimepiride 4 Mg Tablet 4 Mg PO DAILY Janumet Xr 50-1,000 Mg Tablet (Sitagliptin Phos/Metformin Hcl) 1 Each Tbmp.24hr 1 Tab PO BID Mevacor (Lovastatin) 40 Mg Tablet 40 Mg PO DAILY Vitals/I & O Vital Sign - Last 24 Hours 03/06/17 03/06/17 03/06/17 03/06/17 14:25 14:25 14:56 15:30 Temp 97.8 97.8 Pulse 59 59 59 Resp 20 B/P (MAP) 136/40 136/40 119/45 (69) Pulse Ox 99 99 O2 Delivery Nasal Cannula Nasal Cannula O2 Flow Rate 3.0 3.0 03/06/17 03/06/17 03/06/17 03/06/17 19:00 19:46 20:00 20:55 Temp 98.2 98.2 Pulse 63 60 Resp 17 B/P (MAP) 91/42 (58) 91/54 Pulse Ox 95 95 O2 Delivery Nasal Cannula Nasal Cannula Nasal Cannula O2 Flow Rate 3.0 3.0 3.0 03/06/17 03/07/17 03/07/17 03/07/17 23:11 03:00 07:00 07:30 Temp 97.5 97.9 98.1 97.5 97.9 98.1 Pulse 57 50 56 Resp 15 14 14 B/P (MAP) 115/55 (75) 113/55 (74) 121/52 (75) Pulse Ox 99 100 94 O2 Delivery Nasal Cannula Nasal Cannula Nasal Cannula Nasal Cannula O2 Flow Rate 3.0 3.0 3.0 03/07/17 03/07/17 03/07/17 03/07/17 07:43 09:00 10:28 11:00 Temp 98.6 98.6 Pulse 56 56 60 Resp 16 B/P (MAP) 121/52 121/52 129/60 (83) Pulse Ox 95 O2 Delivery Nasal Cannula Nasal Cannula O2 Flow Rate 3.0 3.0 03/07/17 11:12 Pulse Ox 93 O2 Delivery Nasal Cannula O2 Flow Rate 3.0 Intake and Output 03/06/17 03/06/17 03/07/17 15:00 23:00 07:00 Intake Total 250 ml 160 ml Balance 250 ml 160 ml ROB ARSHAD MD March 07, 2017 12:11
[2017-03-07 15:00] VITALS: BP 118/60
[2017-03-07] MEDS ORDERED: INSULIN ASPART 300 UNITS/3 ML INSULN.PEN SQ SCH (17:00)
[2017-03-07 19:00] VITALS: BP 120/53
[2017-03-07] MEDS: ATORVASTATIN CALCIUM 10 MG TABLET. PO SCH (20:08)
[2017-03-07] MEDS ORDERED: INSULIN ASPART 300 UNITS/3 ML INSULN.PEN SQ ONE (21:30)
[2017-03-07 22:51] VITALS: BP 110/56
[2017-03-08 04:26] LABS: BASO % 1 % (0-3); EOS % 2 % (0-3); HEMATOCRIT 22.7 % (36.0-47.0); HEMOGLOBIN 7.5 g/dL (12.0-15.5); LYMPH # 0.7 x10^3/uL (1.0-4.8); LYMPH % 12 % (24-48); MEAN CORPUSCULAR HEMOGLOBIN 33 pg (25-35); MEAN CORPUSCULAR HGB CONC 33 g/dL (31-37); MEAN CORPUSCULAR VOLUME 99 fL (79-100); MONO % 8 % (0-9); NEUT % 79 % (31-73); PLATELET COUNT 229 x10^3/uL (140-400); RED CELL DISTRIBUTION WIDTH 16.4 % (11.5-14.5); WHITE BLOOD COUNT 5.9 x10^3/uL (4.0-11.0)
[2017-03-08 04:38] LABS: CALCIUM 7.8 mg/dL (8.5-10.1); CREATININE 3.8 mg/dL (0.6-1.0); GFR 11.3
[2017-03-08] MEDS: LEVOTHYROXINE 150 MCG TABLET PO SCH (06:11)
[2017-03-08 07:00] VITALS: BP 138/46
[2017-03-08] MEDS: IPRATRPIUM/ALBUTEROL 0.5/2.5MG 3 ML NEBU. NEB SCH ×4 (08:00→20:00)
[2017-03-08] MEDS: PANTOPRAZOLE 40 MG TABLET.DR. PO SCH (09:03)
[2017-03-08] MEDS: LOSARTAN POTASSIUM 50 MG TABLET. PO SCH (09:04)
[2017-03-08] MEDS: METOPROLOL TART IMMED RELEASE 50 MG TABLET. PO SCH ×2 (09:04→21:29)
[2017-03-08] MEDS: FUROSEMIDE 40 MG/4 ML VIAL. IVP SCH (09:04)
[2017-03-08] MEDS: INSULIN ASPART 300 UNITS/3 ML INSULN.PEN SQ SCH ×4 (09:13→21:34)
[2017-03-08 11:00] VITALS: BP 138/53
--- NOTE | 2017-03-08 12:57 | PDOC ---
PULMONARY PROGRESS NOTES Subjective on 02, sob is slightly better. has occ cough, has chest wall pain, no runny nose Vitals Vital Signs Date Time Temp Pulse Resp B/P (MAP) Pulse Ox O2 Delivery O2 Flow Rate FiO2 03/08/17 11:00 97.8 57 20 138/53 (81) 97 Nasal Cannula 3.0 97.8 ROS: No Nausea General: Alert, No acute distress HEENT: Other (nc at perrl, nose throat clear) Lungs: Other (decrease bases) Cardiovascular: S1, S2 Abdomen: Soft, Non-tender Neuro Exam: Alert Extremities: Other (1+edema) Skin: Other (chronic changes) Labs Laboratory Tests Test 03/06/17 16:00 03/07/17 07:10 03/07/17 07:12 03/07/17 11:24 Glucose (Fingerstick) 345 mg/dL (70-99) 239 mg/dL (70-99) 287 mg/dL (70-99) White Blood Count 7.1 x10^3/uL (4.0-11.0) Red Blood Count 2.41 x10^6/uL (3.50-5.40) Hemoglobin 7.6 g/dL (12.0-15.5) Hematocrit 23.9 % (36.0-47.0) Mean Corpuscular Volume 99 fL (79-100) Mean Corpuscular Hemoglobin 32 pg (25-35) Mean Corpuscular Hemoglobin Concent 32 g/dL (31-37) Red Cell Distribution Width 16.1 % (11.5-14.5) Platelet Count 205 x10^3/uL (140-400) Neutrophils (%) (Auto) 80 % (31-73) Lymphocytes (%) (Auto) 12 % (24-48) Monocytes (%) (Auto) 7 % (0-9) Eosinophils (%) (Auto) 1 % (0-3) Basophils (%) (Auto) 0 % (0-3) Neutrophils # (Auto) 5.6 x10^3uL (1.8-7.7) Lymphocytes # (Auto) 0.9 x10^3/uL (1.0-4.8) Monocytes # (Auto) 0.5 x10^3/uL (0.0-1.1) Eosinophils # (Auto) 0.1 x10^3/uL (0.0-0.7) Basophils # (Auto) 0.0 x10^3/uL (0.0-0.2) Sodium Level 137 mmol/L (136-145) Potassium Level 5.3 mmol/L (3.5-5.1) Chloride Level 102 mmol/L (98-107) Carbon Dioxide Level 26 mmol/L (21-32) Anion Gap 9 (6-14) Blood Urea Nitrogen 84 mg/dL (7-20) Creatinine 4.1 mg/dL (0.6-1.0) Estimated GFR (Cockcroft-Gault) 10.3 BUN/Creatinine Ratio 20 (6-20) Glucose Level 237 mg/dL (70-99) Calcium Level 8.3 mg/dL (8.5-10.1) Magnesium Level 1.6 mg/dL (1.8-2.4) Total Bilirubin 0.2 mg/dL (0.2-1.0) Aspartate Amino Transf (AST/SGOT) 17 U/L (15-37) Alanine Aminotransferase (ALT/SGPT) 13 U/L (14-59) Alkaline Phosphatase 44 U/L (46-116) Total Protein 5.9 g/dL (6.4-8.2) Albumin 2.6 g/dL (3.4-5.0) Albumin/Globulin Ratio 0.8 (1.0-1.7) Test 03/07/17 16:17 03/07/17 20:06 03/08/17 03:57 03/08/17 07:34 Glucose (Fingerstick) 356 mg/dL (70-99) 372 mg/dL (70-99) 154 mg/dL (70-99) White Blood Count 5.9 x10^3/uL (4.0-11.0) Red Blood Count 2.30 x10^6/uL (3.50-5.40) Hemoglobin 7.5 g/dL (12.0-15.5) Hematocrit 22.7 % (36.0-47.0) Mean Corpuscular Volume 99 fL (79-100) Mean Corpuscular Hemoglobin 33 pg (25-35) Mean Corpuscular Hemoglobin Concent 33 g/dL (31-37) Red Cell Distribution Width 16.4 % (11.5-14.5) Platelet Count 229 x10^3/uL (140-400) Neutrophils (%) (Auto) 79 % (31-73) Lymphocytes (%) (Auto) 12 % (24-48) Monocytes (%) (Auto) 8 % (0-9) Eosinophils (%) (Auto) 2 % (0-3) Basophils (%) (Auto) 1 % (0-3) Neutrophils # (Auto) 4.7 x10^3uL (1.8-7.7) Lymphocytes # (Auto) 0.7 x10^3/uL (1.0-4.8) Monocytes # (Auto) 0.4 x10^3/uL (0.0-1.1) Eosinophils # (Auto) 0.1 x10^3/uL (0.0-0.7) Basophils # (Auto) 0.0 x10^3/uL (0.0-0.2) Sodium Level 137 mmol/L (136-145) Potassium Level 5.0 mmol/L (3.5-5.1) Chloride Level 102 mmol/L (98-107) Carbon Dioxide Level 23 mmol/L (21-32) Anion Gap 12 (6-14) Blood Urea Nitrogen 80 mg/dL (7-20) Creatinine 3.8 mg/dL (0.6-1.0) Estimated GFR (Cockcroft-Gault) 11.3 Glucose Level 164 mg/dL (70-99) Calcium Level 7.8 mg/dL (8.5-10.1) Test 03/08/17 10:30 Glucose (Fingerstick) 239 mg/dL (70-99) Laboratory Tests Test 03/07/17 16:17 03/07/17 20:06 03/08/17 03:57 03/08/17 07:34 Glucose (Fingerstick) 356 mg/dL (70-99) 372 mg/dL (70-99) 154 mg/dL (70-99) White Blood Count 5.9 x10^3/uL (4.0-11.0) Red Blood Count 2.30 x10^6/uL (3.50-5.40) Hemoglobin 7.5 g/dL (12.0-15.5) Hematocrit 22.7 % (36.0-47.0) Mean Corpuscular Volume 99 fL (79-100) Mean Corpuscular Hemoglobin 33 pg (25-35) Mean Corpuscular Hemoglobin Concent 33 g/dL (31-37) Red Cell Distribution Width 16.4 % (11.5-14.5) Platelet Count 229 x10^3/uL (140-400) Neutrophils (%) (Auto) 79 % (31-73) Lymphocytes (%) (Auto) 12 % (24-48) Monocytes (%) (Auto) 8 % (0-9) Eosinophils (%) (Auto) 2 % (0-3) Basophils (%) (Auto) 1 % (0-3) Neutrophils # (Auto) 4.7 x10^3uL (1.8-7.7) Lymphocytes # (Auto) 0.7 x10^3/uL (1.0-4.8) Monocytes # (Auto) 0.4 x10^3/uL (0.0-1.1) Eosinophils # (Auto) 0.1 x10^3/uL (0.0-0.7) Basophils # (Auto) 0.0 x10^3/uL (0.0-0.2) Sodium Level 137 mmol/L (136-145) Potassium Level 5.0 mmol/L (3.5-5.1) Chloride Level 102 mmol/L (98-107) Carbon Dioxide Level 23 mmol/L (21-32) Anion Gap 12 (6-14) Blood Urea Nitrogen 80 mg/dL (7-20) Creatinine 3.8 mg/dL (0.6-1.0) Estimated GFR (Cockcroft-Gault) 11.3 Glucose Level 164 mg/dL (70-99) Calcium Level 7.8 mg/dL (8.5-10.1) Test 03/08/17 10:30 Glucose (Fingerstick) 239 mg/dL (70-99) Medications Active Scripts Medications Dose Route/Sig Max Daily Dose Days Date Category Levothyroxine Sodium 150 Mcg Tablet 1 Tab PO DAILY 03/06/17 Reported Ferrous Sulfate 325 Mg Tablet 65 Mg PO DAILY 03/06/17 Reported B-12 (Cyanocobalamin (Vitamin B-12)) 1,000 Mcg Tablet 1,000 Mcg PO DAILY 03/06/17 Reported Bystolic (Nebivolol) 10 Mg Tablet 10 Mg PO DAILY 03/06/17 Reported Furosemide 40 Mg Tablet 1 Tab PO DAILY 03/06/17 Reported Prochlorperazine Maleate 10 Mg Tablet 1 Tab PO Q6HRS 03/06/17 Reported Ondansetron Hcl 4 Mg Tablet 1 Tab PO PRN Q6HRS 03/06/17 Reported Pantoprazole Sodium 40 Mg Tablet.dr 1 Tab PO DAILY 04/08/16 Reported Losartan Potassium 100 Mg Tablet 100 Mg PO DAILY 02/03/14 Reported Glimepiride 4 Mg Tablet 4 Mg PO DAILY 10/19/13 Reported Janumet Xr 50-1,000 Mg Tablet (Sitagliptin Phos/Metformin Hcl) 1 Each Tbmp.24hr 1 Tab PO BID 10/19/13 Reported Mevacor (Lovastatin) 40 Mg Tablet 40 Mg PO DAILY 10/19/13 Reported Impression . 1. Acute respiratory failure, multifactorial in etiology including acute diastolic congestive heart failure, volume overload secondary to acute kidney injury 2. Abnormal chest x-ray. 3. Acute diastolic congestive heart failure. 4. Acute kidney injury. 5. Chronic kidney disease. 6. Anemia. 7. Hypertension. 8. Diabetes mellitus. 9. 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 Plan . 1. Titrate FiO2 to keep O2 saturation 92%. 2. bronchodilator. 3. Gentle diuresis. Monitor kidney function very closely. 4. Protonix for stress ulcer prophylaxis. 5. She has IVC filter. 6. fu Blood culture. 7. Continue Rocephin. 8. fall precaution TAI HERNANDEZ MD March 08, 2017 12:57
--- NOTE | 2017-03-08 13:37 | PDOC ---
SUBJECTIVE ROS CKD V doing OK CVS: no Orthopnea, no CP RESP: no SOB, no ROACH GI: no Nausea, no Vomiting : no Dysuria, no Urgency OBJECTIVE Vital Signs Vital Signs Date Time Temp Pulse Resp B/P (MAP) Pulse Ox O2 Delivery O2 Flow Rate FiO2 03/08/17 13:10 Nasal Cannula 3.0 03/08/17 11:00 97.8 57 20 138/53 (81) 97 97.8 I & 0 Intake and Output 03/08/17 06:59 Intake Total 1130 ml Balance 1130 ml Intake Oral 1080 ml IV Total 50 ml # Voids 7 PHYSICAL EXAM Physical Exam GEN: Awake, Oriented x 1-2, In no distress EYES: Vision Unchanged, Conjunctiva Normal EN: No EN Drainage, Mucous Membranes moist NECK: min JVD, + JVP, Supple, no Thyromegaly CVS: S1S2, + Murmur, No Gallop, No Rub,+2-3 Edema; some brawny RESP: rare Rales, no Rhonchi,no Acc. Muscle Use GI: BS + ve, NO Bruit, Non Tender, Non Distended : no CVA tenderness, no Suprapubic Tenderness DIAGNOSIS/ASSESSMENT Assessment & Plan ESRD/ CKD V: She prefers to proceed with medical management and no dialysis as previously outlined and reconfirmed with me ANEMIA; Could benefit from Aranap as OP, Transfuse as needed with IV lasix HTN: Current BP meds as reviewed. See orders for changes. Edema / CHF - Diuresis as needed for Symptomatic Comfort - she has reaffirmed "NO Dialysis EVER" Discussed Plan of Care with pt at bedside Agree with Prior Suggestion for Home with Hospice Problems: COMMENT/RELEVANT DATA Meds Current Medications Medications (Trade) Dose Ordered Sig/Silvano Start Time Stop Time Status Last Admin Dose Admin Albuterol/ Ipratropium (Duoneb) 3 ml RTQID 03/06/17 12:00 03/08/17 13:09 3 ML Atorvastatin Calcium (Lipitor) 10 mg QHS 03/06/17 21:00 03/07/17 20:08 10 MG Azithromycin 250 ml @ 250 mls/hr 1X ONCE 03/06/17 01:00 03/06/17 01:59 DC 03/06/17 01:12 250 MLS/HR Ceftriaxone Sodium 1 gm/ Sodium Chloride 50 ml @ 100 mls/hr Q24H 03/06/17 23:00 03/07/17 23:44 100 MLS/HR Ceftriaxone Sodium 50 ml @ 100 mls/hr 1X ONCE 03/06/17 00:30 03/06/17 00:59 DC 03/06/17 00:49 100 MLS/HR Dextrose (Dextrose 50%-Water Syringe) 12.5 gm PRN Q15MIN PRN 03/06/17 11:15 Furosemide (Lasix) 40 mg DAILY 03/06/17 10:00 03/08/17 09:04 40 MG Insulin Aspart (NovoLOG) 5 units 1X ONCE 03/07/17 21:30 03/07/17 21:31 DC 03/07/17 22:01 5 UNITS Levothyroxine Sodium (Synthroid) 150 mcg DAILY07 03/07/17 07:00 03/08/17 06:11 150 MCG Losartan Potassium (Cozaar) 100 mg DAILY 03/06/17 14:00 03/08/17 09:04 100 MG Metoprolol Tartrate (Lopressor) 50 mg BID 03/06/17 14:00 03/08/17 09:04 50 MG Morphine Sulfate 2 mg PRN Q2HR PRN 03/06/17 01:15 03/07/17 01:14 DC Ondansetron HCl (Zofran) 4 mg PRN Q8HRS PRN 03/06/17 01:15 03/07/17 01:14 DC Pantoprazole Sodium (Protonix) 40 mg DAILYAC 03/06/17 11:30 03/08/17 09:03 40 MG Lab Laboratory Tests Test 03/07/17 16:17 03/07/17 20:06 03/08/17 03:57 03/08/17 07:34 Glucose (Fingerstick) 356 mg/dL (70-99) 372 mg/dL (70-99) 154 mg/dL (70-99) White Blood Count 5.9 x10^3/uL (4.0-11.0) Red Blood Count 2.30 x10^6/uL (3.50-5.40) Hemoglobin 7.5 g/dL (12.0-15.5) Hematocrit 22.7 % (36.0-47.0) Mean Corpuscular Volume 99 fL (79-100) Mean Corpuscular Hemoglobin 33 pg (25-35) Mean Corpuscular Hemoglobin Concent 33 g/dL (31-37) Red Cell Distribution Width 16.4 % (11.5-14.5) Platelet Count 229 x10^3/uL (140-400) Neutrophils (%) (Auto) 79 % (31-73) Lymphocytes (%) (Auto) 12 % (24-48) Monocytes (%) (Auto) 8 % (0-9) Eosinophils (%) (Auto) 2 % (0-3) Basophils (%) (Auto) 1 % (0-3) Neutrophils # (Auto) 4.7 x10^3uL (1.8-7.7) Lymphocytes # (Auto) 0.7 x10^3/uL (1.0-4.8) Monocytes # (Auto) 0.4 x10^3/uL (0.0-1.1) Eosinophils # (Auto) 0.1 x10^3/uL (0.0-0.7) Basophils # (Auto) 0.0 x10^3/uL (0.0-0.2) Sodium Level 137 mmol/L (136-145) Potassium Level 5.0 mmol/L (3.5-5.1) Chloride Level 102 mmol/L (98-107) Carbon Dioxide Level 23 mmol/L (21-32) Anion Gap 12 (6-14) Blood Urea Nitrogen 80 mg/dL (7-20) Creatinine 3.8 mg/dL (0.6-1.0) Estimated GFR (Cockcroft-Gault) 11.3 Glucose Level 164 mg/dL (70-99) Calcium Level 7.8 mg/dL (8.5-10.1) Test 03/08/17 10:30 Glucose (Fingerstick) 239 mg/dL (70-99) JOVON TURNER MD March 08, 2017 13:37
[2017-03-08 14:59] VITALS: BP 151/58
--- NOTE | 2017-03-08 17:22 | PDOC ---
GENERAL General: vss and afebrile. good appetite and no sob. will get final opinions from consultants with likely dc tomorrow to snu or home. Problems: VITAL SIGNS Vital Signs: Vital Signs Date Time Temp Pulse Resp B/P (MAP) Pulse Ox O2 Delivery O2 Flow Rate FiO2 03/08/17 16:27 99 Nasal Cannula 3.0 03/08/17 14:59 97.8 53 20 151/58 (89) 97.8 I & O I & O Intake and Output 03/08/17 07:00 Intake Total 1130 ml Balance 1130 ml Intake Oral 1080 ml IV Total 50 ml # Voids 7 ALLERGIES Allergies: Allergies Coded Allergies Type Severity Reaction Last Updated Verified No Known Drug Allergies 10/20/13 No MEDS Medications: Current Medications Medications (Trade) Dose Ordered Sig/Silvano Start Time Stop Time Status Last Admin Dose Admin Albuterol/ Ipratropium (Duoneb) 3 ml RTQID 03/06/17 12:00 03/08/17 16:27 3 ML Atorvastatin Calcium (Lipitor) 10 mg QHS 03/06/17 21:00 03/07/17 20:08 10 MG Azithromycin 250 ml @ 250 mls/hr 1X ONCE 03/06/17 01:00 03/06/17 01:59 DC 03/06/17 01:12 250 MLS/HR Ceftriaxone Sodium 1 gm/ Sodium Chloride 50 ml @ 100 mls/hr Q24H 03/06/17 23:00 03/07/17 23:44 100 MLS/HR Ceftriaxone Sodium 50 ml @ 100 mls/hr 1X ONCE 03/06/17 00:30 03/06/17 00:59 DC 03/06/17 00:49 100 MLS/HR Dextrose (Dextrose 50%-Water Syringe) 12.5 gm PRN Q15MIN PRN 03/06/17 11:15 Furosemide (Lasix) 40 mg DAILY 03/06/17 10:00 03/08/17 09:04 40 MG Insulin Aspart (NovoLOG) 5 units 1X ONCE 03/07/17 21:30 03/07/17 21:31 DC 03/07/17 22:01 5 UNITS Levothyroxine Sodium (Synthroid) 150 mcg DAILY07 03/07/17 07:00 03/08/17 06:11 150 MCG Losartan Potassium (Cozaar) 100 mg DAILY 03/06/17 14:00 03/08/17 09:04 100 MG Metoprolol Tartrate (Lopressor) 50 mg BID 03/06/17 14:00 03/08/17 09:04 50 MG Morphine Sulfate 2 mg PRN Q2HR PRN 03/06/17 01:15 03/07/17 01:14 DC Ondansetron HCl (Zofran) 4 mg PRN Q8HRS PRN 03/06/17 01:15 03/07/17 01:14 DC Pantoprazole Sodium (Protonix) 40 mg DAILYAC 03/06/17 11:30 03/08/17 09:03 40 MG LAB Lab: Laboratory Tests Test 03/07/17 20:06 03/08/17 03:57 03/08/17 07:34 03/08/17 10:30 Glucose (Fingerstick) 372 mg/dL (70-99) 154 mg/dL (70-99) 239 mg/dL (70-99) White Blood Count 5.9 x10^3/uL (4.0-11.0) Red Blood Count 2.30 x10^6/uL (3.50-5.40) Hemoglobin 7.5 g/dL (12.0-15.5) Hematocrit 22.7 % (36.0-47.0) Mean Corpuscular Volume 99 fL (79-100) Mean Corpuscular Hemoglobin 33 pg (25-35) Mean Corpuscular Hemoglobin Concent 33 g/dL (31-37) Red Cell Distribution Width 16.4 % (11.5-14.5) Platelet Count 229 x10^3/uL (140-400) Neutrophils (%) (Auto) 79 % (31-73) Lymphocytes (%) (Auto) 12 % (24-48) Monocytes (%) (Auto) 8 % (0-9) Eosinophils (%) (Auto) 2 % (0-3) Basophils (%) (Auto) 1 % (0-3) Neutrophils # (Auto) 4.7 x10^3uL (1.8-7.7) Lymphocytes # (Auto) 0.7 x10^3/uL (1.0-4.8) Monocytes # (Auto) 0.4 x10^3/uL (0.0-1.1) Eosinophils # (Auto) 0.1 x10^3/uL (0.0-0.7) Basophils # (Auto) 0.0 x10^3/uL (0.0-0.2) Sodium Level 137 mmol/L (136-145) Potassium Level 5.0 mmol/L (3.5-5.1) Chloride Level 102 mmol/L (98-107) Carbon Dioxide Level 23 mmol/L (21-32) Anion Gap 12 (6-14) Blood Urea Nitrogen 80 mg/dL (7-20) Creatinine 3.8 mg/dL (0.6-1.0) Estimated GFR (Cockcroft-Gault) 11.3 Glucose Level 164 mg/dL (70-99) Calcium Level 7.8 mg/dL (8.5-10.1) Test 03/08/17 16:40 Glucose (Fingerstick) 283 mg/dL (70-99) JESSICA GREWAL MD March 08, 2017 17:22
[2017-03-08 19:20] VITALS: BP 132/65
[2017-03-08] MEDS: ATORVASTATIN CALCIUM 10 MG TABLET. PO SCH (21:00)
[2017-03-08 23:00] VITALS: BP 151/82
[2017-03-09 07:00] VITALS: BP 135/44
[2017-03-09] MEDS: IPRATRPIUM/ALBUTEROL 0.5/2.5MG 3 ML NEBU. NEB SCH ×4 (07:43→20:16)
[2017-03-09] MEDS: FUROSEMIDE 40 MG/4 ML VIAL. IVP SCH (08:39)
[2017-03-09] MEDS: PANTOPRAZOLE 40 MG TABLET.DR. PO SCH (08:39)
[2017-03-09] MEDS: METOPROLOL TART IMMED RELEASE 50 MG TABLET. PO SCH ×2 (08:40→21:00)
[2017-03-09] MEDS: LEVOTHYROXINE 150 MCG TABLET PO SCH (08:40)
[2017-03-09] MEDS: INSULIN ASPART 300 UNITS/3 ML INSULN.PEN SQ SCH ×4 (08:43→21:21)
--- NOTE | 2017-03-09 08:44 | PDOC ---
GENERAL General: vss and afebrile. awake and alert and son in attendance. feeling ok without sob and ate decent breakfast. exam stable. to snu for stregthening and med adjustment when bed available. Problems: VITAL SIGNS Vital Signs: Vital Signs Date Time Temp Pulse Resp B/P (MAP) Pulse Ox O2 Delivery O2 Flow Rate FiO2 03/09/17 07:44 98 Nasal Cannula 3.0 03/09/17 07:00 97.7 52 18 135/44 (74) 97.7 I & O I & O Intake and Output 03/09/17 07:00 Intake Total 1710 ml Output Total 2 ml Balance 1708 ml Intake Oral 1710 ml Urine/Stool Mix 2 ml # Voids 7 # Bowel Movements 1 ALLERGIES Allergies: Allergies Coded Allergies Type Severity Reaction Last Updated Verified No Known Drug Allergies 10/20/13 No MEDS Medications: Current Medications Medications (Trade) Dose Ordered Sig/Silvano Start Time Stop Time Status Last Admin Dose Admin Albuterol/ Ipratropium (Duoneb) 3 ml RTQID 03/06/17 12:00 03/09/17 07:43 3 ML Atorvastatin Calcium (Lipitor) 10 mg QHS 03/06/17 21:00 03/08/17 21:00 10 MG Azithromycin 250 ml @ 250 mls/hr 1X ONCE 03/06/17 01:00 03/06/17 01:59 DC 03/06/17 01:12 250 MLS/HR Ceftriaxone Sodium 1 gm/ Sodium Chloride 50 ml @ 100 mls/hr Q24H 03/06/17 23:00 03/08/17 22:33 100 MLS/HR Ceftriaxone Sodium 50 ml @ 100 mls/hr 1X ONCE 03/06/17 00:30 03/06/17 00:59 DC 03/06/17 00:49 100 MLS/HR Dextrose (Dextrose 50%-Water Syringe) 12.5 gm PRN Q15MIN PRN 03/06/17 11:15 Furosemide (Lasix) 40 mg DAILY 03/06/17 10:00 03/08/17 09:04 40 MG Insulin Aspart (NovoLOG) 5 units 1X ONCE 03/07/17 21:30 03/07/17 21:31 DC 03/07/17 22:01 5 UNITS Levothyroxine Sodium (Synthroid) 150 mcg DAILY07 03/07/17 07:00 03/08/17 06:11 150 MCG Losartan Potassium (Cozaar) 100 mg DAILY 03/06/17 14:00 03/08/17 09:04 100 MG Metoprolol Tartrate (Lopressor) 50 mg BID 03/06/17 14:00 03/08/17 21:29 50 MG Morphine Sulfate 2 mg PRN Q2HR PRN 03/06/17 01:15 03/07/17 01:14 DC Ondansetron HCl (Zofran) 4 mg PRN Q8HRS PRN 03/06/17 01:15 03/07/17 01:14 DC Pantoprazole Sodium (Protonix) 40 mg DAILYAC 03/06/17 11:30 03/08/17 09:03 40 MG LAB Lab: Laboratory Tests Test 03/08/17 10:30 03/08/17 16:40 03/08/17 20:47 03/09/17 07:32 Glucose (Fingerstick) 239 mg/dL (70-99) 283 mg/dL (70-99) 266 mg/dL (70-99) 266 mg/dL (70-99) JESSICA GREWAL MD March 09, 2017 08:43
--- NOTE | 2017-03-09 09:54 | PDOC ---
PULMONARY PROGRESS NOTES Subjective on 02, sob is slightly better. Vitals Vital Signs Date Time Temp Pulse Resp B/P (MAP) Pulse Ox O2 Delivery O2 Flow Rate FiO2 03/09/17 08:40 52 135/44 03/09/17 07:44 98 Nasal Cannula 3.0 03/09/17 07:00 97.7 18 97.7 ROS: No Nausea General: No acute distress HEENT: Other (nc at perrl, nose throat clear) Lungs: Other (decrease bases) Cardiovascular: S1, S2 Abdomen: Soft, Non-tender Extremities: Other (1+edema) Skin: Other (chronic changes) Labs Laboratory Tests Test 03/07/17 11:24 03/07/17 16:17 03/07/17 20:06 03/08/17 03:57 Glucose (Fingerstick) 287 mg/dL (70-99) 356 mg/dL (70-99) 372 mg/dL (70-99) White Blood Count 5.9 x10^3/uL (4.0-11.0) Red Blood Count 2.30 x10^6/uL (3.50-5.40) Hemoglobin 7.5 g/dL (12.0-15.5) Hematocrit 22.7 % (36.0-47.0) Mean Corpuscular Volume 99 fL (79-100) Mean Corpuscular Hemoglobin 33 pg (25-35) Mean Corpuscular Hemoglobin Concent 33 g/dL (31-37) Red Cell Distribution Width 16.4 % (11.5-14.5) Platelet Count 229 x10^3/uL (140-400) Neutrophils (%) (Auto) 79 % (31-73) Lymphocytes (%) (Auto) 12 % (24-48) Monocytes (%) (Auto) 8 % (0-9) Eosinophils (%) (Auto) 2 % (0-3) Basophils (%) (Auto) 1 % (0-3) Neutrophils # (Auto) 4.7 x10^3uL (1.8-7.7) Lymphocytes # (Auto) 0.7 x10^3/uL (1.0-4.8) Monocytes # (Auto) 0.4 x10^3/uL (0.0-1.1) Eosinophils # (Auto) 0.1 x10^3/uL (0.0-0.7) Basophils # (Auto) 0.0 x10^3/uL (0.0-0.2) Sodium Level 137 mmol/L (136-145) Potassium Level 5.0 mmol/L (3.5-5.1) Chloride Level 102 mmol/L (98-107) Carbon Dioxide Level 23 mmol/L (21-32) Anion Gap 12 (6-14) Blood Urea Nitrogen 80 mg/dL (7-20) Creatinine 3.8 mg/dL (0.6-1.0) Estimated GFR (Cockcroft-Gault) 11.3 Glucose Level 164 mg/dL (70-99) Calcium Level 7.8 mg/dL (8.5-10.1) Test 03/08/17 07:34 03/08/17 10:30 03/08/17 16:40 03/08/17 20:47 Glucose (Fingerstick) 154 mg/dL (70-99) 239 mg/dL (70-99) 283 mg/dL (70-99) 266 mg/dL (70-99) Test 03/09/17 07:32 Glucose (Fingerstick) 266 mg/dL (70-99) Laboratory Tests Test 03/08/17 10:30 03/08/17 16:40 03/08/17 20:47 03/09/17 07:32 Glucose (Fingerstick) 239 mg/dL (70-99) 283 mg/dL (70-99) 266 mg/dL (70-99) 266 mg/dL (70-99) Medications Active Scripts Medications Dose Route/Sig Max Daily Dose Days Date Category Levothyroxine Sodium 150 Mcg Tablet 1 Tab PO DAILY 03/06/17 Reported Ferrous Sulfate 325 Mg Tablet 65 Mg PO DAILY 03/06/17 Reported B-12 (Cyanocobalamin (Vitamin B-12)) 1,000 Mcg Tablet 1,000 Mcg PO DAILY 03/06/17 Reported Bystolic (Nebivolol) 10 Mg Tablet 10 Mg PO DAILY 03/06/17 Reported Furosemide 40 Mg Tablet 1 Tab PO DAILY 03/06/17 Reported Prochlorperazine Maleate 10 Mg Tablet 1 Tab PO Q6HRS 03/06/17 Reported Ondansetron Hcl 4 Mg Tablet 1 Tab PO PRN Q6HRS 03/06/17 Reported Pantoprazole Sodium 40 Mg Tablet. 1 Tab PO DAILY 04/08/16 Reported Losartan Potassium 100 Mg Tablet 100 Mg PO DAILY 02/03/14 Reported Glimepiride 4 Mg Tablet 4 Mg PO DAILY 10/19/13 Reported Janumet Xr 50-1,000 Mg Tablet (Sitagliptin Phos/Metformin Hcl) 1 Each Tbmp.24hr 1 Tab PO BID 10/19/13 Reported Mevacor (Lovastatin) 40 Mg Tablet 40 Mg PO DAILY 10/19/13 Reported Impression . 1. Acute respiratory failure, multifactorial in etiology including acute diastolic congestive heart failure, volume overload secondary to acute kidney injury 2. Abnormal chest x-ray. 3. Acute diastolic congestive heart failure. 4. Acute kidney injury. 5. Chronic kidney disease. 6. Anemia. 7. Hypertension. 8. Diabetes mellitus. 9. 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 Plan . 1. Titrate FiO2 to keep O2 saturation 92%. 2. bronchodilator. 3. Gentle diuresis. Monitor kidney function very closely. 4. Protonix for stress ulcer prophylaxis. 5. She has IVC filter. 6. fu Blood culture. 7. Continue Rocephin. 8. fall precaution TAI HERNANDEZ MD March 09, 2017 09:54
[2017-03-09 11:00] VITALS: BP 124/52
--- NOTE | 2017-03-09 11:39 | PDOC ---
SUBJECTIVE ROS CKD IV/ V Doing OK overall CVS: no Orthopnea, no CP RESP: no SOB, no ROACH GI: no Nausea, no Vomiting : no Dysuria, no Urgency OBJECTIVE Vital Signs Vital Signs Date Time Temp Pulse Resp B/P (MAP) Pulse Ox O2 Delivery O2 Flow Rate FiO2 03/09/17 11:00 97.7 55 18 124/52 (76) 95 Nasal Cannula 3.0 97.7 I & 0 Intake and Output 03/09/17 07:00 Intake Total 1710 ml Output Total 2 ml Balance 1708 ml Intake Oral 1710 ml Urine/Stool Mix 2 ml # Voids 7 # Bowel Movements 1 PHYSICAL EXAM Physical Exam GEN: Awake, Oriented x 1-2, In no distress EYES: Vision Unchanged, Conjunctiva Normal EN: No EN Drainage, Mucous Membranes moist NECK: min JVD, + JVP, Supple, no Thyromegaly CVS: S1S2, + Murmur, No Gallop, No Rub,+2-3 Edema; some brawny RESP: rare Rales, no Rhonchi,no Acc. Muscle Use GI: BS + ve, NO Bruit, Non Tender, Non Distended : no CVA tenderness, no Suprapubic Tenderness DIAGNOSIS/ASSESSMENT Assessment & Plan ESRD/ CKD V: She prefers to proceed with medical management and no dialysis as previously outlined and reconfirmed with me ANEMIA; Could benefit from Aranesp as OP, Transfuse as needed with IV lasix HTN: Current BP meds as reviewed. See orders for changes. Edema / CHF - Diuresis as needed for Symptomatic Comfort - she has reaffirmed "NO Dialysis EVER" Discussed Plan of Care with pt at bedside Agree with Prior Suggestion for Home with Hospice if family agrees COMMENT/RELEVANT DATA Meds Current Medications Medications (Trade) Dose Ordered Sig/Silvano Start Time Stop Time Status Last Admin Dose Admin Albuterol/ Ipratropium (Duoneb) 3 ml RTQID 03/06/17 12:00 03/09/17 07:43 3 ML Atorvastatin Calcium (Lipitor) 10 mg QHS 03/06/17 21:00 03/08/17 21:00 10 MG Azithromycin 250 ml @ 250 mls/hr 1X ONCE 03/06/17 01:00 03/06/17 01:59 DC 03/06/17 01:12 250 MLS/HR Ceftriaxone Sodium 1 gm/ Sodium Chloride 50 ml @ 100 mls/hr Q24H 03/06/17 23:00 03/08/17 22:33 100 MLS/HR Ceftriaxone Sodium 50 ml @ 100 mls/hr 1X ONCE 03/06/17 00:30 03/06/17 00:59 DC 03/06/17 00:49 100 MLS/HR Dextrose (Dextrose 50%-Water Syringe) 12.5 gm PRN Q15MIN PRN 03/06/17 11:15 Furosemide (Lasix) 40 mg DAILY 03/06/17 10:00 03/09/17 08:39 40 MG Insulin Aspart (NovoLOG) 5 units 1X ONCE 03/07/17 21:30 03/07/17 21:31 DC 03/07/17 22:01 5 UNITS Levothyroxine Sodium (Synthroid) 150 mcg DAILY07 03/07/17 07:00 03/09/17 08:40 150 MCG Losartan Potassium (Cozaar) 100 mg DAILY 03/06/17 14:00 03/08/17 09:04 100 MG Metoprolol Tartrate (Lopressor) 50 mg BID 03/06/17 14:00 03/08/17 21:29 50 MG Morphine Sulfate 2 mg PRN Q2HR PRN 03/06/17 01:15 03/07/17 01:14 DC Ondansetron HCl (Zofran) 4 mg PRN Q8HRS PRN 03/06/17 01:15 03/07/17 01:14 DC Pantoprazole Sodium (Protonix) 40 mg DAILYAC 03/06/17 11:30 03/09/17 08:39 40 MG Lab Laboratory Tests Test 03/08/17 16:40 03/08/17 20:47 03/09/17 07:32 03/09/17 11:00 Glucose (Fingerstick) 283 mg/dL (70-99) 266 mg/dL (70-99) 266 mg/dL (70-99) 302 mg/dL (70-99) JOVON TURNER MD March 09, 2017 11:39
[2017-03-09] MEDS: LOSARTAN POTASSIUM 50 MG TABLET. PO SCH (11:50)
[2017-03-09 14:59] VITALS: BP 130/50
[2017-03-09 19:00] VITALS: BP_SYST 136
[2017-03-09] MEDS ORDERED: CEFPODOXIME PROXETIL 100 MG TABLET. PO SCH ×2 (21:00)
[2017-03-09] MEDS: ATORVASTATIN CALCIUM 10 MG TABLET. PO SCH (21:17)
[2017-03-09 23:00] VITALS: BP 130/56
[2017-03-10 03:00] VITALS: BP 141/61
[2017-03-10] MEDS: LEVOTHYROXINE 150 MCG TABLET PO SCH (06:26)
[2017-03-10 07:00] VITALS: BP 148/47
[2017-03-10] MEDS: IPRATRPIUM/ALBUTEROL 0.5/2.5MG 3 ML NEBU. NEB SCH ×2 (07:14→11:11)
[2017-03-10] MEDS: PANTOPRAZOLE 40 MG TABLET.DR. PO SCH (07:57)
[2017-03-10] MEDS: INSULIN ASPART 300 UNITS/3 ML INSULN.PEN SQ SCH ×2 (08:01→11:52)
--- NOTE | 2017-03-10 08:48 | PDOC ---
GENERAL General: vss and afebrile. awake and alert and without significant complaints. chest with diminished breath sounds at bases and heart regular. edema same. sugars increased and can't find a formulary alternative that is appropriate given heart and renal failure so will continue with ss insulin. awaiting snu eval. Problems: VITAL SIGNS Vital Signs: Vital Signs Date Time Temp Pulse Resp B/P (MAP) Pulse Ox O2 Delivery O2 Flow Rate FiO2 03/10/17 07:16 99 Nasal Cannula 3.0 03/10/17 07:00 97.7 54 16 148/47 (80) 97.7 I & O I & O Intake and Output 03/10/17 07:00 Intake Total 1200 ml Output Total 500 ml Balance 700 ml Intake Oral 1200 ml Output Urine Total 500 ml # Voids 4 ALLERGIES Allergies: Allergies Coded Allergies Type Severity Reaction Last Updated Verified No Known Drug Allergies 10/20/13 No MEDS Medications: Current Medications Medications (Trade) Dose Ordered Sig/Silvano Start Time Stop Time Status Last Admin Dose Admin Albuterol/ Ipratropium (Duoneb) 3 ml RTQID 03/06/17 12:00 03/10/17 07:14 3 ML Atorvastatin Calcium (Lipitor) 10 mg QHS 03/06/17 21:00 03/09/17 21:17 10 MG Azithromycin 250 ml @ 250 mls/hr 1X ONCE 03/06/17 01:00 03/06/17 01:59 DC 03/06/17 01:12 250 MLS/HR Cefpodoxime Proxetil (Vantin) 200 mg HS 03/09/17 21:00 03/09/17 21:18 200 MG Ceftriaxone Sodium 1 gm/ Sodium Chloride 50 ml @ 100 mls/hr Q24H 03/06/17 23:00 03/09/17 16:01 DC 03/08/17 22:33 100 MLS/HR Ceftriaxone Sodium 50 ml @ 100 mls/hr 1X ONCE 03/06/17 00:30 03/06/17 00:59 DC 03/06/17 00:49 100 MLS/HR Dextrose (Dextrose 50%-Water Syringe) 12.5 gm PRN Q15MIN PRN 03/06/17 11:15 Furosemide (Lasix) 40 mg DAILY 03/06/17 10:00 03/09/17 08:39 40 MG Insulin Aspart (NovoLOG) 5 units 1X ONCE 03/07/17 21:30 03/07/17 21:31 DC 03/07/17 22:01 5 UNITS Levothyroxine Sodium (Synthroid) 150 mcg DAILY07 03/07/17 07:00 03/10/17 06:26 150 MCG Losartan Potassium (Cozaar) 100 mg DAILY 03/06/17 14:00 03/09/17 11:50 100 MG Metoprolol Tartrate (Lopressor) 50 mg BID 03/06/17 14:00 03/08/17 21:29 50 MG Morphine Sulfate 2 mg PRN Q2HR PRN 03/06/17 01:15 03/07/17 01:14 DC Ondansetron HCl (Zofran) 4 mg PRN Q8HRS PRN 03/06/17 01:15 03/07/17 01:14 DC Pantoprazole Sodium (Protonix) 40 mg DAILYAC 03/06/17 11:30 03/10/17 07:57 40 MG LAB Lab: Laboratory Tests Test 03/09/17 11:00 03/09/17 16:30 03/09/17 21:02 03/10/17 07:38 Glucose (Fingerstick) 302 mg/dL (70-99) 306 mg/dL (70-99) 340 mg/dL (70-99) 285 mg/dL (70-99) JESSICA GREWAL MD March 10, 2017 08:48
[2017-03-10] MEDS: LOSARTAN POTASSIUM 50 MG TABLET. PO SCH (09:24)
[2017-03-10] MEDS: METOPROLOL TART IMMED RELEASE 50 MG TABLET. PO SCH (09:25)
[2017-03-10] MEDS: FUROSEMIDE 40 MG/4 ML VIAL. IVP SCH (09:25)
--- NOTE | 2017-03-10 09:37 | PDOC ---
SUBJECTIVE ROS CKD V doing OK OBJECTIVE Vital Signs Vital Signs Date Time Temp Pulse Resp B/P (MAP) Pulse Ox O2 Delivery O2 Flow Rate FiO2 03/10/17 09:25 54 148/47 03/10/17 07:16 99 Nasal Cannula 3.0 03/10/17 07:00 97.7 16 97.7 I & 0 Intake and Output 03/10/17 07:00 Intake Total 1200 ml Output Total 500 ml Balance 700 ml Intake Oral 1200 ml Output Urine Total 500 ml # Voids 4 PHYSICAL EXAM Physical Exam General Appearance: Awake: Alert Oriented x 1- 2 Neck: No JVD or JVP Chest: CTA Gurpreet Heart: S1 S2 Abdomen - Soft NTND Extremities - +2 Edema DIAGNOSIS/ASSESSMENT Assessment & Plan ESRD/ CKD V: (no Labs today) She prefers to proceed with medical management and no dialysis as previously outlined and reconfirmed with me on 03/08/2017 Agree with Prior Suggestion for Home with Hospice if family agrees Problems: COMMENT/RELEVANT DATA Meds Current Medications Medications (Trade) Dose Ordered Sig/Silvano Start Time Stop Time Status Last Admin Dose Admin Albuterol/ Ipratropium (Duoneb) 3 ml RTQID 03/06/17 12:00 03/10/17 07:14 3 ML Atorvastatin Calcium (Lipitor) 10 mg QHS 03/06/17 21:00 03/09/17 21:17 10 MG Azithromycin 250 ml @ 250 mls/hr 1X ONCE 03/06/17 01:00 03/06/17 01:59 DC 03/06/17 01:12 250 MLS/HR Cefpodoxime Proxetil (Vantin) 200 mg HS 03/09/17 21:00 03/09/17 21:18 200 MG Ceftriaxone Sodium 1 gm/ Sodium Chloride 50 ml @ 100 mls/hr Q24H 03/06/17 23:00 03/09/17 16:01 DC 03/08/17 22:33 100 MLS/HR Ceftriaxone Sodium 50 ml @ 100 mls/hr 1X ONCE 03/06/17 00:30 03/06/17 00:59 DC 03/06/17 00:49 100 MLS/HR Dextrose (Dextrose 50%-Water Syringe) 12.5 gm PRN Q15MIN PRN 03/06/17 11:15 Furosemide (Lasix) 40 mg DAILY 03/06/17 10:00 03/10/17 09:25 40 MG Insulin Aspart (NovoLOG) 5 units 1X ONCE 03/07/17 21:30 03/07/17 21:31 DC 03/07/17 22:01 5 UNITS Levothyroxine Sodium (Synthroid) 150 mcg DAILY07 03/07/17 07:00 03/10/17 06:26 150 MCG Losartan Potassium (Cozaar) 100 mg DAILY 03/06/17 14:00 03/10/17 09:24 100 MG Metoprolol Tartrate (Lopressor) 50 mg BID 03/06/17 14:00 03/10/17 09:25 50 MG Morphine Sulfate 2 mg PRN Q2HR PRN 03/06/17 01:15 03/07/17 01:14 DC Ondansetron HCl (Zofran) 4 mg PRN Q8HRS PRN 03/06/17 01:15 03/07/17 01:14 DC Pantoprazole Sodium (Protonix) 40 mg DAILYAC 03/06/17 11:30 03/10/17 07:57 40 MG Lab Laboratory Tests Test 03/09/17 11:00 03/09/17 16:30 03/09/17 21:02 03/10/17 07:38 Glucose (Fingerstick) 302 mg/dL (70-99) 306 mg/dL (70-99) 340 mg/dL (70-99) 285 mg/dL (70-99) JOVON TURNER MD March 10, 2017 09:37
--- NOTE | 2017-03-10 10:13 | PDOC ---
PULMONARY PROGRESS NOTES Subjective on 02, sob is slightly better. Vitals Vital Signs Date Time Temp Pulse Resp B/P (MAP) Pulse Ox O2 Delivery O2 Flow Rate FiO2 03/10/17 09:25 54 148/47 03/10/17 08:00 Nasal Cannula 3.0 03/10/17 07:16 99 03/10/17 07:00 97.7 16 97.7 ROS: No Nausea General: No acute distress HEENT: Other (nc at perrl, nose throat clear) Lungs: Other (decrease bases) Cardiovascular: S1, S2 Abdomen: Soft, Non-tender Extremities: Other (1+edema) Skin: Other (chronic changes) Labs Laboratory Tests Test 03/08/17 10:30 03/08/17 16:40 03/08/17 20:47 03/09/17 07:32 Glucose (Fingerstick) 239 mg/dL (70-99) 283 mg/dL (70-99) 266 mg/dL (70-99) 266 mg/dL (70-99) Test 03/09/17 11:00 03/09/17 16:30 03/09/17 21:02 03/10/17 07:38 Glucose (Fingerstick) 302 mg/dL (70-99) 306 mg/dL (70-99) 340 mg/dL (70-99) 285 mg/dL (70-99) Laboratory Tests Test 03/09/17 11:00 03/09/17 16:30 03/09/17 21:02 03/10/17 07:38 Glucose (Fingerstick) 302 mg/dL (70-99) 306 mg/dL (70-99) 340 mg/dL (70-99) 285 mg/dL (70-99) Medications Active Scripts Medications Dose Route/Sig Max Daily Dose Days Date Category Levothyroxine Sodium 150 Mcg Tablet 1 Tab PO DAILY 03/06/17 Reported Ferrous Sulfate 325 Mg Tablet 65 Mg PO DAILY 03/06/17 Reported B-12 (Cyanocobalamin (Vitamin B-12)) 1,000 Mcg Tablet 1,000 Mcg PO DAILY 03/06/17 Reported Bystolic (Nebivolol) 10 Mg Tablet 10 Mg PO DAILY 03/06/17 Reported Furosemide 40 Mg Tablet 1 Tab PO DAILY 03/06/17 Reported Prochlorperazine Maleate 10 Mg Tablet 1 Tab PO Q6HRS 03/06/17 Reported Ondansetron Hcl 4 Mg Tablet 1 Tab PO PRN Q6HRS 03/06/17 Reported Pantoprazole Sodium 40 Mg Tablet.dr 1 Tab PO DAILY 04/08/16 Reported Losartan Potassium 100 Mg Tablet 100 Mg PO DAILY 02/03/14 Reported Glimepiride 4 Mg Tablet 4 Mg PO DAILY 10/19/13 Reported Janumet Xr 50-1,000 Mg Tablet (Sitagliptin Phos/Metformin Hcl) 1 Each Tbmp.24hr 1 Tab PO BID 10/19/13 Reported Mevacor (Lovastatin) 40 Mg Tablet 40 Mg PO DAILY 10/19/13 Reported Impression . 1. Acute respiratory failure, multifactorial in etiology including acute diastolic congestive heart failure, volume overload secondary to acute kidney injury 2. Abnormal chest x-ray. 3. Acute diastolic congestive heart failure. 4. Acute kidney injury. 5. Chronic kidney disease. 6. Anemia. 7. Hypertension. 8. Diabetes mellitus. 9. 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 Plan . 1. Titrate FiO2 to keep O2 saturation 92%. 2. bronchodilator. 3. Monitor kidney function very closely. 4. Protonix for stress ulcer prophylaxis. 5. She has IVC filter. 7. Continue abx 8. fall precaution TAI HERNANDEZ MD March 10, 2017 10:13
[2017-03-10 11:09] VITALS: BP 154/56
[2017-03-12] MEDS ORDERED: LEVOTHYROXINE 100 MCG TABLET PO SCH (07:00)
== END 2017-03-10 14:53 | DRG 682 ==
LOC: ER 22:52 → 5 SOUTH 03-06 00:54
PROVIDERS: ADMIT Family Medicine; ATTEND Family Medicine
DX: N17.9 Acute kidney failure, unspecified (principal); J96.01 Acute respiratory failure with hypoxia; I50.33 Acute on chronic diastolic (congestive) heart failure; J18.9 Pneumonia, unspecified organism; I13.2 Hypertensive heart and chronic kidney disease with heart failure and with stage 5 chronic kidney disease, or end stage renal disease; N18.5 Chronic kidney disease, stage 5; E78.5 Hyperlipidemia, unspecified; E78.00 Pure hypercholesterolemia, unspecified; I25.10 Atherosclerotic heart disease of native coronary artery without angina pectoris; I27.2 Other secondary pulmonary hypertension; E11.22 Type 2 diabetes mellitus with diabetic chronic kidney disease; Z96.649 Presence of unspecified artificial hip joint; E03.9 Hypothyroidism, unspecified; D64.9 Anemia, unspecified; Z82.49 Family history of ischemic heart disease and other diseases of the circulatory system; Z86.718 Personal history of other venous thrombosis and embolism; Z87.11 Personal history of peptic ulcer disease; Z90.49 Acquired absence of other specified parts of digestive tract; Z95.1 Presence of aortocoronary bypass graft; Z87.440 Personal history of urinary (tract) infections; Z90.710 Acquired absence of both cervix and uterus
CPT/HCPCS: 36415; 70450; 71010; 72125; 80048; 80053; 82947; 83605; 83735; 83880; 84484; 85007; 85027; 87040; 93005; 93306; 94250; 94640; 94760; 96365; 96375; J0456; J0690; J0696; J1815; J1940; J7620; 97110; 97116; 97535; 99285-25

== ENCOUNTER → 2017-03-18 | Outpatient (CLI) | payer MEDICARE ==
[~2017-03-18] VITALS: Ht 165.1 cm; Wt 68.0 kg
[~2017-03-18] MED LIST changes: +ASPI-630 PO; -ASPI81TA2 PO; +BYSTOLIC10 MG PO; +CYAN100072 PO; +FERR-26 PO; +FURO40TA4 PO; +LEVO150T5 PO; -MINE473O2 PO; +MINE473O3 PO; +ONDA4TAB11 PO; -PHEN95TA PO; +PHEN95TA10 PO; +PROC5TAB14 PO
[2017-03-18 08:49] LABS: HEMOGLOBIN 7.4 g/dL (12.0-15.5)
[2017-03-18 10:20] VITALS: BP 155/70
[2017-03-18 11:06] VITALS: BP 137/83
[2017-03-18 12:15] VITALS: BP 123/71
== END | disposition home or self-care (01) ==
LOC: OPS 08:12
PROVIDERS: ATTEND Family Medicine
DX: D62 Acute posthemorrhagic anemia (principal)
CPT/HCPCS: 36415; 36430; 85014; 85018; 86850; 86900; 86901; 86920; P9016

== ENCOUNTER 2017-07-23 02:54 | Inpatient (IN) | payer MEDICARE, BC ==
[~2017-07-23] VITALS: Ht 160 cm; Wt 59.1 kg
[~2017-07-23 02:54] MED LIST changes: +ACET325T9 PO; +ASPI-482 PO; +HYDR28GE TP; +POLY17PO29 PO
[2017-07-23 03:44] LABS: BASO % 1 % (0-3); EOS % 2 % (0-3); HEMATOCRIT 28.8 % (36.0-47.0); HEMOGLOBIN 9.3 g/dL (12.0-15.5); LYMPH # 0.7 x10^3/uL (1.0-4.8); LYMPH % 11 % (24-48); MEAN CORPUSCULAR HEMOGLOBIN 31 pg (25-35); MEAN CORPUSCULAR HGB CONC 32 g/dL (31-37); MEAN CORPUSCULAR VOLUME 96 fL (79-100); MONO % 11 % (0-9); NEUT % 75 % (31-73); PLATELET COUNT 338 x10^3/uL (140-400); RED CELL DISTRIBUTION WIDTH 15.6 % (11.5-14.5); WHITE BLOOD COUNT 6.5 x10^3/uL (4.0-11.0)
[2017-07-23 03:56] LABS: CALCIUM 8.7 mg/dL (8.5-10.1); CREATININE 3.1 mg/dL (0.6-1.0); GFR 14.2; POTASSIUM 5.4 mmol/L (3.5-5.1)
[2017-07-23 04:02] LABS: ALBUMIN 2.9 g/dL (3.4-5.0); ALBUMIN/GLOBULIN RATIO 0.7 (1.0-1.7); MAGNESIUM 2.7 mg/dL (1.8-2.4); TOTAL BILIRUBIN 0.3 mg/dL (0.2-1.0); TOTAL PROTEIN 7.2 g/dL (6.4-8.2)
[2017-07-23 05:00] LABS: BILIRUBIN,URINE NEGATIVE (NEG); GLUCOSE,URINE NEGATIVE (NEG); NITRITE,URINE NEGATIVE (NEG); PH,URINE 6.5; PROTEIN,URINE 30 mg/dL (NEG-TRACE); UROBILINOGEN,URINE 0.2 mg/dL (0.2 mg/dL)
[2017-07-23] MEDS ORDERED: MORPHINE SULFATE 4 MG/ML DISP.SYRIN. IV PRN (05:00)
[2017-07-23] MEDS ORDERED: ACETAMINOPHEN 325 MG TABLET. PO PRN (05:00)
[2017-07-23] MEDS ORDERED: ONDANSETRON PF 4 MG/2 ML VIAL. IV PRN (05:00)
[2017-07-23 05:08] LABS: BACTERIA,URINE 0 /HPF (0-FEW); RBC,URINE OCC /HPF (0-2); SQUAMOUS EPITHELIAL CELL,UR FEW /LPF; WBC,URINE OCC /HPF (0-4)
--- NOTE | 2017-07-23 05:23 | PHYS DOC ---
Past Medical History Past Medical History: CAD, Diabetes-Type II, DVT, High Cholesterol, Hypertension, Hypothyroid, Renal Disease, UTI Past Surgical History: Cholecystectomy, Coronary Bypass Surgery, Hip Replacement, Hysterectomy, Other Additional Past Surgical Histo: RIGHT HIP, IVC FILTER PLACED Alcohol Use: Rarely Drug Use: None Adult General Chief Complaint Chief Complaint: HYPOGLYCEMIA HPI HPI Patient is a 86 year old female who presents with hypoglycemia. The patient is brought by EMS from [facility]. Reportedly blood glucose had been in the 40s with minimal improvement after giving orange juice. No further interventions required by EMS. She feels more short of breath than usual. Denies fevers/chills, chest pain, cough. She does report increased bilateral lower extremity edema. She feels constipated without nausea/vomiting, rectal bleeding. PCP is Dr. Bethea. Review of Systems Review of Systems Constitutional: Denies fever or chills Eyes: Denies change in visual acuity HENT: Denies nasal congestion or sore throat Respiratory: Denies cough, reports shortness of breath Cardiovascular: Denies chest pain, reports edema GI: Reports constipation. Denies abdominal pain, nausea, vomiting, bloody stools or diarrhea : Denies dysuria or hematuria Musculoskeletal: Denies back pain or joint pain Integument: Denies rash or skin lesions Neurologic: Denies headache, focal weakness or sensory changes Current Medications Current Medications Allergies Allergies Allergies Coded Allergies Type Severity Reaction Last Updated Verified No Known Drug Allergies 07/07/17 No Physical Exam Physical Exam Constitutional: Well developed, well nourished, no acute distress, non-toxic appearance. HENT: Normocephalic, atraumatic, bilateral external ears normal, oropharynx moist, nose normal. Eyes: conjunctiva normal, no discharge. Neck: supple, no stridor. Cardiovascular: RRR, no murmurs, 3+ pitting edema to bilateral lower extremities. Lungs & Thorax: diminished, crackles present, tachypneic, no respiratory distress. Abdomen: soft, nontender, nondistended. no masses or pulsatile masses, no rebound/guarding Skin: Warm, dry, erythema to sacral region extending to perineum without skin breakdown. Back: No tenderness. Extremities: No tenderness, edema as above with weeping. Neurologic: Alert and oriented X 3, no focal deficits noted. Psychologic: flat affect Current Patient Data Vital Signs Vital Signs Date Time Temp Pulse Resp B/P (MAP) Pulse Ox O2 Delivery O2 Flow Rate FiO2 07/23/17 03:10 97.6 64 18 191/80 (117) 97 Room Air 97.6 Lab Values Laboratory Tests Test 07/23/17 03:03 07/23/17 03:35 07/23/17 04:02 Glucose (Fingerstick) 88 mg/dL (70-99) 111 mg/dL (70-99) H White Blood Count 6.5 x10^3/uL (4.0-11.0) Red Blood Count 3.00 x10^6/uL (3.50-5.40) L Hemoglobin 9.3 g/dL (12.0-15.5) L Hematocrit 28.8 % (36.0-47.0) L Mean Corpuscular Volume 96 fL (79-100) Mean Corpuscular Hemoglobin 31 pg (25-35) Mean Corpuscular Hemoglobin Concent 32 g/dL (31-37) Red Cell Distribution Width 15.6 % (11.5-14.5) H Platelet Count 338 x10^3/uL (140-400) Neutrophils (%) (Auto) 75 % (31-73) H Lymphocytes (%) (Auto) 11 % (24-48) L Monocytes (%) (Auto) 11 % (0-9) H Eosinophils (%) (Auto) 2 % (0-3) Basophils (%) (Auto) 1 % (0-3) Neutrophils # (Auto) 4.9 x10^3uL (1.8-7.7) Lymphocytes # (Auto) 0.7 x10^3/uL (1.0-4.8) L Monocytes # (Auto) 0.7 x10^3/uL (0.0-1.1) Eosinophils # (Auto) 0.1 x10^3/uL (0.0-0.7) Basophils # (Auto) 0.0 x10^3/uL (0.0-0.2) Sodium Level 133 mmol/L (136-145) L Potassium Level 5.4 mmol/L (3.5-5.1) H Chloride Level 95 mmol/L (98-107) L Carbon Dioxide Level 32 mmol/L (21-32) Anion Gap 6 (6-14) Blood Urea Nitrogen 90 mg/dL (7-20) H Creatinine 3.1 mg/dL (0.6-1.0) H Estimated GFR (Cockcroft-Gault) 14.2 BUN/Creatinine Ratio 29 (6-20) H Glucose Level 137 mg/dL (70-99) H Calcium Level 8.7 mg/dL (8.5-10.1) Magnesium Level 2.7 mg/dL (1.8-2.4) H Total Bilirubin 0.3 mg/dL (0.2-1.0) Aspartate Amino Transferase (AST) 21 U/L (15-37) Alanine Aminotransferase (ALT) 16 U/L (14-59) Alkaline Phosphatase 84 U/L (46-116) Troponin I Quantitative 0.035 ng/mL (0.000-0.055) CA-Cco-E-Type Natriuretic Peptide 6058 pg/mL (0-449) H Total Protein 7.2 g/dL (6.4-8.2) Albumin 2.9 g/dL (3.4-5.0) L Albumin/Globulin Ratio 0.7 (1.0-1.7) L Laboratory Tests 07/23/17 03:35 Laboratory Tests 07/23/17 03:35 EKG EKG interpreted by me: NSR rate 65, no acute ST/T wave changes, Q waves in V1-V3, normal intervals, no ectopy. artifact present.[] Radiology/Procedures Radiology/Procedures CXR: interpreted by me: cardiomegaly, left base scarring, interstitial fluid, no infiltrate, no pneumothorax.[] Course & Med Decision Making Course & Med Decision Making Pertinent Labs and Imaging studies reviewed. (See chart for details) The patient presents with hypoglycemia. Her blood glucose was stable here. However she appears dyspneic & tachypneic, has elevated BNP & increased pulmonary edema on CXR. RN noted extensive stage 1 pressure ulcer without skin breakdown to sacral area extending to perineum. The patient agrees with plan for admission. Discussed with Dr. Bethea who agrees to admit, will give lasix & consult Dr. Lopes of cardiology & Dr. Cota of nephrology. I did discuss with patient & she is aware that recommendation will likely include dialysis which she has declined in the past. She is being admitted in guarded condition. [] Dragon Disclaimer Dragon Disclaimer This electronic medical record was generated, in whole or in part, using a voice recognition dictation system. Departure Departure Impression: Primary Impression: Congestive heart failure Additional Impressions: Chronic kidney disease Hyperkalemia Anemia Disposition: ADMITTED INPATIENT Admitting Physician: Nicolas Bethea Condition: GUARDED Problem Qualifiers FRIDA BURNHAM MD Jul 23, 2017 05:23
[2017-07-23] MEDS ORDERED: FUROSEMIDE 40 MG/4 ML VIAL. IVP ONE (05:30)
[2017-07-23 06:37] VITALS: BP 159/76
[2017-07-23 06:55] VITALS: BP 159/76
--- NOTE | 2017-07-23 07:19 | RAD ---
EXAM: Chest one view. HISTORY: Hypoxia. COMPARISON: 07/07/2017. FINDINGS: A frontal view of the chest is obtained. There are changes of coronary artery bypass grafting. An inferior vena cava filter is partially visualized. There is rotation to the left. There are interstitial airspace opacities in the left greater than right bases. Blunting of the left costophrenic angle appears stable and most likely represents lingular scarring or an epicardial fat pad. There is no pneumothorax or clear pleural effusion. There are atherosclerotic calcifications of the aorta. The heart is mildly enlarged. IMPRESSION: 1. Mild pulmonary edema versus atypical pneumonia. 2. Mild cardiomegaly.
--- NOTE | 2017-07-23 07:22 | EKG ---
[facility] [address] [place] [address] Test Date: 2017-07-23 Test Time: 03:45:45 Pat Name: SHIRLEY ZIMMERMAN Department: Room: [facility] Gender: F Infectious Disease Physician: : [id number] Requested By: FRIDA BURNHAM Order Number: [id number] Reading MD: Dustin Caicedo Measurements Intervals [place] Rate: 65 P: -141 MO: 176 QRS: 46 QRSD: 102 T: 67 QT: 432 QTc: 450 Interpretive Statements SINUS RHYTHM LOW LIMB LEAD VOLTAGE QRS(T) CONTOUR ABNORMALITY CONSISTENT WITH ANTEROSEPTAL INFARCT AGE UNDETERMINED RI6.01 Unconfirmed report Compared to ECG 07/07/2017 13:04:19 No significant changes Electronically Signed On 08-11-2017 10:24:31 CDT by Dustin Caicedo
[2017-07-23] MEDS ORDERED: ACETAMINOPHEN 325 MG TABLET. PO SCH ×2 (08:45)
--- NOTE | 2017-07-23 08:49 | PDOC ---
GENERAL General: see dictated H&P. hypoglycemic as I am seeing. will hold amaryl. sliding scale insulin. Problems: VITAL SIGNS Vital Signs: Vital Signs Date Time Temp Pulse Resp B/P (MAP) Pulse Ox O2 Delivery O2 Flow Rate FiO2 07/23/17 06:55 97.3 62 159/76 (103) 92 Nasal Cannula 3.5 97.3 07/23/17 06:37 16 ALLERGIES Allergies: Allergies Coded Allergies Type Severity Reaction Last Updated Verified No Known Drug Allergies 07/07/17 No MEDS Medications: Current Medications Medications (Trade) Dose Ordered Sig/Silvano Start Time Stop Time Status Last Admin Dose Admin Acetaminophen (Tylenol) 500 mg PRN Q4HRS 07/23/17 08:45 UNV Aspirin (Ecotrin) 81 mg DAILY 07/23/17 09:00 UNV Cyanocobalamin (Vitamin B-12) 1,000 mcg DAILY 07/23/17 09:00 UNV Ferrous Sulfate (Feosol) 65 mg DAILY 07/23/17 09:00 UNV Furosemide (Lasix) 40 mg DAILY 07/23/17 09:00 UNV Levothyroxine Sodium (Synthroid) 150 mcg DAILY 07/23/17 09:00 UNV Morphine Sulfate 2 mg PRN Q2HR PRN 07/23/17 05:00 07/24/17 04:59 Non-Formulary Medication 1 tab PRN Q6HRS 07/23/17 08:45 UNV Ondansetron HCl (Zofran) 4 mg PRN Q8HRS PRN 07/23/17 05:00 07/24/17 04:59 Pantoprazole Sodium (Protonix) 40 mg DAILY 07/23/17 09:00 UNV Polyethylene Glycol (miraLAX PACKET) 17 gm DAILY 07/23/17 09:00 UNV Prochlorperazine Maleate (Compazine) 10 mg Q6HRS 07/23/17 12:00 UNV LAB Lab: Laboratory Tests Test 07/23/17 03:03 07/23/17 03:35 07/23/17 04:02 07/23/17 04:50 Glucose (Fingerstick) 88 mg/dL (70-99) 111 mg/dL (70-99) White Blood Count 6.5 x10^3/uL (4.0-11.0) Red Blood Count 3.00 x10^6/uL (3.50-5.40) Hemoglobin 9.3 g/dL (12.0-15.5) Hematocrit 28.8 % (36.0-47.0) Mean Corpuscular Volume 96 fL (79-100) Mean Corpuscular Hemoglobin 31 pg (25-35) Mean Corpuscular Hemoglobin Concent 32 g/dL (31-37) Red Cell Distribution Width 15.6 % (11.5-14.5) Platelet Count 338 x10^3/uL (140-400) Neutrophils (%) (Auto) 75 % (31-73) Lymphocytes (%) (Auto) 11 % (24-48) Monocytes (%) (Auto) 11 % (0-9) Eosinophils (%) (Auto) 2 % (0-3) Basophils (%) (Auto) 1 % (0-3) Neutrophils # (Auto) 4.9 x10^3uL (1.8-7.7) Lymphocytes # (Auto) 0.7 x10^3/uL (1.0-4.8) Monocytes # (Auto) 0.7 x10^3/uL (0.0-1.1) Eosinophils # (Auto) 0.1 x10^3/uL (0.0-0.7) Basophils # (Auto) 0.0 x10^3/uL (0.0-0.2) Sodium Level 133 mmol/L (136-145) Potassium Level 5.4 mmol/L (3.5-5.1) Chloride Level 95 mmol/L (98-107) Carbon Dioxide Level 32 mmol/L (21-32) Anion Gap 6 (6-14) Blood Urea Nitrogen 90 mg/dL (7-20) Creatinine 3.1 mg/dL (0.6-1.0) Estimated GFR (Cockcroft-Gault) 14.2 BUN/Creatinine Ratio 29 (6-20) Glucose Level 137 mg/dL (70-99) Calcium Level 8.7 mg/dL (8.5-10.1) Magnesium Level 2.7 mg/dL (1.8-2.4) Total Bilirubin 0.3 mg/dL (0.2-1.0) Aspartate Amino Transf (AST/SGOT) 21 U/L (15-37) Alanine Aminotransferase (ALT/SGPT) 16 U/L (14-59) Alkaline Phosphatase 84 U/L (46-116) Troponin I Quantitative 0.035 ng/mL (0.000-0.055) TC-Qsr-U-Type Natriuretic Peptide 6058 pg/mL (0-449) Total Protein 7.2 g/dL (6.4-8.2) Albumin 2.9 g/dL (3.4-5.0) Albumin/Globulin Ratio 0.7 (1.0-1.7) Urine Collection Type U cath Urine Color Yellow Urine Clarity Clear Urine pH 6.5 Urine Specific [place] 1.010 Urine Protein 30 mg/dL (NEG-TRACE) Urine Glucose (UA) Negative mg/dL (NEG) Urine Ketones (Stick) Negative mg/dL (NEG) Urine Blood Negative (NEG) Urine Nitrite Negative (NEG) Urine Bilirubin Negative (NEG) Urine Urobilinogen Dipstick 0.2 mg/dL (0.2 mg/dL) Urine Leukocyte Esterase Negative (NEG) Urine RBC Occ /HPF (0-2) Urine WBC Occ /HPF (0-4) Urine Squamous Epithelial Cells Few /LPF Urine Bacteria 0 /HPF (0-FEW) Urine Mucus Slight /LPF Test 07/23/17 08:21 07/23/17 08:35 Glucose (Fingerstick) 34 mg/dL (70-99) 57 mg/dL (70-99) JESSICA GREWAL MD Jul 23, 2017 08:49
[2017-07-23] MEDS ORDERED: LOSARTAN POTASSIUM 50 MG TABLET. PO SCH (09:00)
[2017-07-23] MEDS: FUROSEMIDE 40 MG TABLET. PO SCH ×2 (09:00→09:40)
[2017-07-23] MEDS ORDERED: ONDANSETRON ODT 4 MG TAB.RAPDIS. PO PRN (09:15)
[2017-07-23] MEDS ORDERED: DEXTROSE 50% 25 GM / 50ML DISP.SYRIN. IV PRN (09:15)
[2017-07-23] MEDS: POLYETHYLENE GLYCOL 3350 17 GM PACKET. PO SCH ×2 (09:30→15:48)
[2017-07-23] MEDS: CYANOCOBALAMIN (VITAMIN B-12) 1,000 MCG TABLET. PO SCH (09:40)
[2017-07-23] MEDS: METOPROLOL TART IMMED RELEASE 50 MG TABLET. PO SCH ×2 (09:40→20:25)
[2017-07-23] MEDS: FERROUS SULFATE 325 MG TABLET. PO SCH (09:41)
[2017-07-23] MEDS: ASPIRIN ENTERIC COATED 81 MG TABLET.DR. PO SCH (09:41)
[2017-07-23] MEDS: LEVOTHYROXINE 150 MCG TABLET PO SCH (09:41)
[2017-07-23] MEDS: PANTOPRAZOLE 40 MG TABLET.DR. PO SCH (09:41)
[2017-07-23] MEDS: ALPRAZolam 0.25 MG TABLET PO PRN ×2 (10:14→20:25)
[2017-07-23 11:00] VITALS: BP 158/63
--- NOTE | 2017-07-23 12:14 | PDOC2 ---
CONSULT Date of Consult Date of Consult DATE: 07/23/17 TIME: 12:09 Reason for Consult Reason for Consult: RENAL FAILURE Referring Physician Referring Physician: CARMINA Identification/Chief Complaint Chief Complaint LOW BLOOD GLUCOSE AND POOR APPETITE Problems: Source Source: Chart review History of Present Illness Reason for Visit: THIS IS AN 86 YR OLD HERE FOR LOW BLOOD SUGARS. SHE IS CONFUSED SOME EVEN AFTER HER SUGARS ARE BETTER. APPETITE HAS BEEN DOWN. SHE HAS A K OF 5.4 AND LOW NA AND A CR OF 3.1 WITH A BUN OF 90. SHE HAS ESRD BUT HAS DECLINED DIALYSIS. SHE IS ALSO ANEMIC. SHE HAS SEVERE LE EDEMA WITH STASIS DISCOLORATION AND LE WOUND. Past Medical History Cardiovascular: CAD, HTN, Hyperlipidemia, Other Pulmonary: No pertinent hx GI: Constipation, GI bleed, Peptic Ulcer disease Heme/Onc: Anemia NOS Hepatobiliary: Cholelithiasis Renal/: Chronic renal failure, UTI, Urinary Incontinence Endocrine: Diabetes, Hypothyroidism, Hyperparathyroidism Past Surgical History Past Surgical History: Appendectomy, Cholecystectomy, CABG, Hernia Repair, Total hip replacement, Hysterectomy Family History Family History: No Significant Social History ALCOHOL: none Drugs: None Lives: [facility] Current Problem List Problem List Problems Medical Problems: (1) Anemia Status: Acute (2) Chronic kidney disease Status: Acute (3) Congestive heart failure Status: Acute (4) Hyperkalemia Status: Acute Current Medications Current Medications Current Medications Furosemide (Lasix) 40 mg 1X ONCE IVP Last administered on 07/23/17t 06:04; Start 07/23/17 at 05:30; Stop 07/23/17 at 05:31; Status DC Ondansetron HCl (Zofran) 4 mg PRN Q8HRS PRN IV NAUSEA/VOMITING; Start 07/23/17 at 05:00; Stop 07/23/17 at 09:33; Status DC Morphine Sulfate 2 mg PRN Q2HR PRN IV SEVERE PAIN; Start 07/23/17 at 05:00; Stop 07/24/17 at 04:59 Acetaminophen (Tylenol) 650 mg PRN Q4HRS PRN PO FEVER; Start 07/23/17 at 05:00 ; Stop 07/24/17 at 04:59; Status Cancel Acetaminophen (Tylenol) 325 mg PRN Q4HRS PO ; Start 07/23/17 at 08:45 Acetaminophen (Tylenol) 500 mg PRN Q4HRS PO ; Start 07/23/17 at 08:45 Aspirin (Ecotrin) 81 mg DAILY PO Last administered on 07/23/17 09:41; Start at 09:00 Cyanocobalamin (Vitamin B-12) 1,000 mcg DAILY PO Last administered on 09:40; Start 07/23/17 at 09:00 Ferrous Sulfate (Feosol) 65 mg DAILY PO Last administered on 07/23/17 09:41; Start 07/23/17 at 09:00 Furosemide (Lasix) 40 mg DAILY PO ; Start 07/23/17 at 09:00 Levothyroxine Sodium (Synthroid) 150 mcg DAILY PO Last administered on 09:41; Start 07/23/17 at 09:00 Pantoprazole Sodium (Protonix) 40 mg DAILY PO Last administered on 07/23/17 09 :41; Start 07/23/17 at 09:00 Polyethylene Glycol (miraLAX PACKET) 17 gm DAILY PO ; Start 07/23/17 at 09:30 Prochlorperazine Maleate (Compazine) 10 mg Q6HRS PO ; Start 07/23/17 at 12:00 Losartan Potassium (Cozaar) 50 mg DAILY PO Last administered on 07/23/17 09:41 ; Start 07/23/17 at 09:00 Atorvastatin Calcium (Lipitor) 10 mg QHS PO ; Start 07/23/17 at 21:00 Metoprolol Tartrate (Lopressor) 50 mg BID PO Last administered on 07/23/17 09: 40; Start 07/23/17 at 10:00 Ondansetron HCl (Zofran Odt) 4 mg PRN Q6HRS PRN PO NAUSEA/VOMITING; Start 07/23 at 09:15 Insulin Aspart (NovoLOG) 0-5 UNITS TIDWMEALS SQ ; Start 07/23/17 at 12:00 Dextrose (Dextrose 50%-Water Syringe) 12.5 gm PRN Q15MIN PRN IV SEE COMMENTS; Start 07/23/17 at 09:15 Alprazolam (Xanax) 0.25 mg TID PRN PRN PO ANXIETY / AGITATION Last administered on 07/23/17 10:14; Start 07/23/17 at 10:00 Active Scripts Active Reported Aspir 81 (Aspirin) 81 Mg Tablet.dr 1 Tab PO DAILY Cortizone 10 (Hydrocortisone) 28 Gm Gel..gram. 28 Gm TP Tylenol (Acetaminophen) 325 Mg Tablet 500 Mg PO Tylenol (Acetaminophen) 325 Mg Tablet 325 Mg PO Miralax (Polyethylene Glycol 3350) 17 Gm Powd.pack 1 Pkt PO PRN Levothyroxine Sodium 150 Mcg Tablet 1 Tab PO DAILY Ferrous Sulfate 325 Mg Tablet 65 Mg PO DAILY B-12 (Cyanocobalamin (Vitamin B-12)) 1,000 Mcg Tablet 1,000 Mcg PO DAILY Bystolic (Nebivolol) 10 Mg Tablet 10 Mg PO DAILY Furosemide 40 Mg Tablet 1 Tab PO DAILY Prochlorperazine Maleate 10 Mg Tablet 1 Tab PO Q6HRS Ondansetron Hcl 4 Mg Tablet 1 Tab PO PRN Q6HRS Pantoprazole Sodium 40 Mg Tablet.dr 1 Tab PO DAILY Losartan Potassium 100 Mg Tablet 100 Mg PO DAILY Glimepiride 4 Mg Tablet 4 Mg PO DAILY Janumet Xr 50-1,000 Mg Tablet (Sitagliptin Phos/Metformin Hcl) 1 Each Tbmp.24hr 1 Tab PO BID Mevacor (Lovastatin) 40 Mg Tablet 40 Mg PO DAILY Allergies Allergies: Coded Allergies: No Known Drug Allergies (Unverified , 07/07/17) ROS Review of System UNABLE TO OBTAIN, CONFUSED Physical Exam General: Alert, Oriented X3, Cooperative HEENT: Atraumatic Lungs: Other (DECREASED AT BASES) Heart: Regular rate Abdomen: Normal bowel sounds, Soft, No tenderness Extremities: Other (3+ EDEMA WITH STASIS DISCOLORATION AND SEEPAGE) Skin: Other (STASIS AT LE BILATERALLY) Neuro: Other (CONFUSED BUT NO ASYMMETRY) Psych/Mental Status: Other (CONFUSED) MUSCULOSKELETAL: No joint tenderness Vitals VITALS Vital Signs Date Time Temp Pulse Resp B/P (MAP) Pulse Ox O2 Delivery O2 Flow Rate FiO2 07/23/17 09:41 62 159/76 07/23/17 06:55 97.3 92 Nasal Cannula 3.5 97.3 07/23/17 06:37 16 Labs Labs Laboratory Tests Test 07/23/17 03:03 07/23/17 03:35 07/23/17 04:02 07/23/17 04:50 Glucose (Fingerstick) 88 mg/dL (70-99) 111 mg/dL (70-99) White Blood Count 6.5 x10^3/uL (4.0-11.0) Red Blood Count 3.00 x10^6/uL (3.50-5.40) Hemoglobin 9.3 g/dL (12.0-15.5) Hematocrit 28.8 % (36.0-47.0) Mean Corpuscular Volume 96 fL (79-100) Mean Corpuscular Hemoglobin 31 pg (25-35) Mean Corpuscular Hemoglobin Concent 32 g/dL (31-37) Red Cell Distribution Width 15.6 % (11.5-14.5) Platelet Count 338 x10^3/uL (140-400) Neutrophils (%) (Auto) 75 % (31-73) Lymphocytes (%) (Auto) 11 % (24-48) Monocytes (%) (Auto) 11 % (0-9) Eosinophils (%) (Auto) 2 % (0-3) Basophils (%) (Auto) 1 % (0-3) Neutrophils # (Auto) 4.9 x10^3uL (1.8-7.7) Lymphocytes # (Auto) 0.7 x10^3/uL (1.0-4.8) Monocytes # (Auto) 0.7 x10^3/uL (0.0-1.1) Eosinophils # (Auto) 0.1 x10^3/uL (0.0-0.7) Basophils # (Auto) 0.0 x10^3/uL (0.0-0.2) Sodium Level 133 mmol/L (136-145) Potassium Level 5.4 mmol/L (3.5-5.1) Chloride Level 95 mmol/L (98-107) Carbon Dioxide Level 32 mmol/L (21-32) Anion Gap 6 (6-14) Blood Urea Nitrogen 90 mg/dL (7-20) Creatinine 3.1 mg/dL (0.6-1.0) Estimated GFR (Cockcroft-Gault) 14.2 BUN/Creatinine Ratio 29 (6-20) Glucose Level 137 mg/dL (70-99) Calcium Level 8.7 mg/dL (8.5-10.1) Magnesium Level 2.7 mg/dL (1.8-2.4) Total Bilirubin 0.3 mg/dL (0.2-1.0) Aspartate Amino Transf (AST/SGOT) 21 U/L (15-37) Alanine Aminotransferase (ALT/SGPT) 16 U/L (14-59) Alkaline Phosphatase 84 U/L (46-116) Troponin I Quantitative 0.035 ng/mL (0.000-0.055) PF-Lfw-S-Type Natriuretic Peptide 6058 pg/mL (0-449) Total Protein 7.2 g/dL (6.4-8.2) Albumin 2.9 g/dL (3.4-5.0) Albumin/Globulin Ratio 0.7 (1.0-1.7) Urine Collection Type U cath Urine Color Yellow Urine Clarity Clear Urine pH 6.5 Urine Specific [place] 1.010 Urine Protein 30 mg/dL (NEG-TRACE) Urine Glucose (UA) Negative mg/dL (NEG) Urine Ketones (Stick) Negative mg/dL (NEG) Urine Blood Negative (NEG) Urine Nitrite Negative (NEG) Urine Bilirubin Negative (NEG) Urine Urobilinogen Dipstick 0.2 mg/dL (0.2 mg/dL) Urine Leukocyte Esterase Negative (NEG) Urine RBC Occ /HPF (0-2) Urine WBC Occ /HPF (0-4) Urine Squamous Epithelial Cells Few /LPF Urine Bacteria 0 /HPF (0-FEW) Urine Mucus Slight /LPF Test 07/23/17 08:21 07/23/17 08:35 07/23/17 08:52 07/23/17 09:09 Glucose (Fingerstick) 34 mg/dL (70-99) 57 mg/dL (70-99) 70 mg/dL (70-99) 97 mg/dL (70-99) Test 07/23/17 09:37 07/23/17 10:45 Glucose (Fingerstick) 119 mg/dL (70-99) Troponin I Quantitative 0.018 ng/mL (0.000-0.055) Laboratory Tests Test 07/23/17 03:03 07/23/17 03:35 07/23/17 04:02 07/23/17 04:50 Glucose (Fingerstick) 88 mg/dL (70-99) 111 mg/dL (70-99) White Blood Count 6.5 x10^3/uL (4.0-11.0) Red Blood Count 3.00 x10^6/uL (3.50-5.40) Hemoglobin 9.3 g/dL (12.0-15.5) Hematocrit 28.8 % (36.0-47.0) Mean Corpuscular Volume 96 fL (79-100) Mean Corpuscular Hemoglobin 31 pg (25-35) Mean Corpuscular Hemoglobin Concent 32 g/dL (31-37) Red Cell Distribution Width 15.6 % (11.5-14.5) Platelet Count 338 x10^3/uL (140-400) Neutrophils (%) (Auto) 75 % (31-73) Lymphocytes (%) (Auto) 11 % (24-48) Monocytes (%) (Auto) 11 % (0-9) Eosinophils (%) (Auto) 2 % (0-3) Basophils (%) (Auto) 1 % (0-3) Neutrophils # (Auto) 4.9 x10^3uL (1.8-7.7) Lymphocytes # (Auto) 0.7 x10^3/uL (1.0-4.8) Monocytes # (Auto) 0.7 x10^3/uL (0.0-1.1) Eosinophils # (Auto) 0.1 x10^3/uL (0.0-0.7) Basophils # (Auto) 0.0 x10^3/uL (0.0-0.2) Sodium Level 133 mmol/L (136-145) Potassium Level 5.4 mmol/L (3.5-5.1) Chloride Level 95 mmol/L (98-107) Carbon Dioxide Level 32 mmol/L (21-32) Anion Gap 6 (6-14) Blood Urea Nitrogen 90 mg/dL (7-20) Creatinine 3.1 mg/dL (0.6-1.0) Estimated GFR (Cockcroft-Gault) 14.2 BUN/Creatinine Ratio 29 (6-20) Glucose Level 137 mg/dL (70-99) Calcium Level 8.7 mg/dL (8.5-10.1) Magnesium Level 2.7 mg/dL (1.8-2.4) Total Bilirubin 0.3 mg/dL (0.2-1.0) Aspartate Amino Transf (AST/SGOT) 21 U/L (15-37) Alanine Aminotransferase (ALT/SGPT) 16 U/L (14-59) Alkaline Phosphatase 84 U/L (46-116) Troponin I Quantitative 0.035 ng/mL (0.000-0.055) IH-Tzz-E-Type Natriuretic Peptide 6058 pg/mL (0-449) Total Protein 7.2 g/dL (6.4-8.2) Albumin 2.9 g/dL (3.4-5.0) Albumin/Globulin Ratio 0.7 (1.0-1.7) Urine Collection Type U cath Urine Color Yellow Urine Clarity Clear Urine pH 6.5 Urine Specific [place] 1.010 Urine Protein 30 mg/dL (NEG-TRACE) Urine Glucose (UA) Negative mg/dL (NEG) Urine Ketones (Stick) Negative mg/dL (NEG) Urine Blood Negative (NEG) Urine Nitrite Negative (NEG) Urine Bilirubin Negative (NEG) Urine Urobilinogen Dipstick 0.2 mg/dL (0.2 mg/dL) Urine Leukocyte Esterase Negative (NEG) Urine RBC Occ /HPF (0-2) Urine WBC Occ /HPF (0-4) Urine Squamous Epithelial Cells Few /LPF Urine Bacteria 0 /HPF (0-FEW) Urine Mucus Slight /LPF Test 07/23/17 08:21 07/23/17 08:35 07/23/17 08:52 07/23/17 09:09 Glucose (Fingerstick) 34 mg/dL (70-99) 57 mg/dL (70-99) 70 mg/dL (70-99) 97 mg/dL (70-99) Test 07/23/17 09:37 07/23/17 10:45 Glucose (Fingerstick) 119 mg/dL (70-99) Troponin I Quantitative 0.018 ng/mL (0.000-0.055) Assessment/Plan Assessment/Plan IMP ESRD LE EDEMA STASIS RELATED LE WOUNDS DM II HTN ANEMIA HYPOGLYCEMIA PROB UREMIA HYPERKALEMIA PLAN CONSIDER ANTIBIOTICS FOR LE CONT LASIX ENC PO POOR PROGNOSIS PT HAS DECLINED DIALYSIS STOP HER LOSARTAN AVOID FURTHER USE OF ANY ARB OR SEEMA-I IV LASIX CONSIDER PALLIATIVE CARE FINA ESPINOZA MD Jul 23, 2017 12:14
[2017-07-23] MEDS: PROCHLORPERAZINE 5 MG TABLET. PO SCH ×3 (12:36→23:03)
[2017-07-23] MEDS: FUROSEMIDE 40 MG/4 ML VIAL. IVP SCH (12:40)
[2017-07-23] MEDS: INSULIN ASPART 300 UNITS/3 ML INSULN.PEN SQ SCH ×2 (12:46→17:47)
[2017-07-23 15:00] VITALS: BP 160/59
[2017-07-23] MEDS: HYDROcodone/APAP 5/325MG 1 TAB TABLET PO PRN ×2 (15:48→20:25)
[2017-07-23] MEDS ORDERED: BISACODYL 10 MG SUPP.RECT. PR PRN (16:15)
--- NOTE | 2017-07-23 17:14 | PDOC2 ---
CONSULT Date of Consult Date of Consult DATE: 07/23/17 TIME: 17:09 Reason for Consult Reason for Consult: Cardiac history Referring Physician Referring Physician: Dr. Bethea Identification/Chief Complaint Chief Complaint Hypoglycemia Problems: History of Present Illness Reason for Visit: This patient is a very pleasant 86-year-old lady that has a known history of coronary artery disease, diabetes, hypertension, CHF. She had been staying at the [facility] when she had an episode of profound hypoglycemia and was brought into the emergency room. After she was seen in the ER the patient was treated and then admitted. She has no cardiac complaints. She states that her legs are swollen. This is a chronic issue with her and last month when I saw her she had her leg swelling present also, it is pretty much unchanged because she just sits dangling her feet most of the day. The patient denies having any chest pains, denies any palpitations, denies loss of consciousness. Past Medical History Cardiovascular: CAD, HTN, Hyperlipidemia, Other Pulmonary: No pertinent hx GI: Constipation, GI bleed, Peptic Ulcer disease Heme/Onc: Anemia NOS Hepatobiliary: Cholelithiasis Renal/: Chronic renal failure, UTI, Urinary Incontinence Endocrine: Diabetes, Hypothyroidism, Hyperparathyroidism Past Surgical History Past Surgical History: Appendectomy, Cholecystectomy, CABG, Hernia Repair, Total hip replacement, Hysterectomy Family History Family History: No Significant Social History ALCOHOL: none Drugs: None Lives: [facility] Current Problem List Problem List Problems Medical Problems: (1) Anemia Status: Acute (2) Chronic kidney disease Status: Acute (3) Congestive heart failure Status: Acute (4) Hyperkalemia Status: Acute Current Medications Current Medications Current Medications Furosemide (Lasix) 40 mg 1X ONCE IVP Last administered on 07/23/17t 06:04; Start 07/23/17 at 05:30; Stop 07/23/17 at 05:31; Status DC Ondansetron HCl (Zofran) 4 mg PRN Q8HRS PRN IV NAUSEA/VOMITING; Start 07/23/17 at 05:00; Stop 07/23/17 at 09:33; Status DC Morphine Sulfate 2 mg PRN Q2HR PRN IV SEVERE PAIN; Start 07/23/17 at 05:00; Stop 07/24/17 at 04:59 Acetaminophen (Tylenol) 650 mg PRN Q4HRS PRN PO FEVER; Start 07/23/17 at 05:00 ; Stop 07/24/17 at 04:59; Status Cancel Acetaminophen (Tylenol) 325 mg PRN Q4HRS PO ; Start 07/23/17 at 08:45 Acetaminophen (Tylenol) 500 mg PRN Q4HRS PO ; Start 07/23/17 at 08:45 Aspirin (Ecotrin) 81 mg DAILY PO Last administered on 07/23/17 09:41; Start at 09:00 Cyanocobalamin (Vitamin B-12) 1,000 mcg DAILY PO Last administered on 09:40; Start 07/23/17 at 09:00 Ferrous Sulfate (Feosol) 65 mg DAILY PO Last administered on 07/23/17 09:41; Start 07/23/17 at 09:00 Furosemide (Lasix) 40 mg DAILY PO ; Start 07/23/17 at 09:00; Stop 07/23/17 at 12 :16; Status DC Levothyroxine Sodium (Synthroid) 150 mcg DAILY PO Last administered on 09:41; Start 07/23/17 at 09:00 Pantoprazole Sodium (Protonix) 40 mg DAILY PO Last administered on 07/23/17 09 :41; Start 07/23/17 at 09:00 Polyethylene Glycol (miraLAX PACKET) 17 gm DAILY PO Last administered on 15:48; Start 07/23/17 at 09:30 Prochlorperazine Maleate (Compazine) 10 mg Q6HRS PO Last administered on 12:36; Start 07/23/17 at 12:00 Losartan Potassium (Cozaar) 50 mg DAILY PO Last administered on 07/23/17 09:41 ; Start 07/23/17 at 09:00; Stop 07/23/17 at 12:16; Status DC Atorvastatin Calcium (Lipitor) 10 mg QHS PO ; Start 07/23/17 at 21:00 Metoprolol Tartrate (Lopressor) 50 mg BID PO Last administered on 07/23/17 09: 40; Start 07/23/17 at 10:00 Ondansetron HCl (Zofran Odt) 4 mg PRN Q6HRS PRN PO NAUSEA/VOMITING; Start 07/23 at 09:15 Insulin Aspart (NovoLOG) 0-5 UNITS TIDWMEALS SQ Last administered on 07/23/17 12:46; Start 07/23/17 at 12:00 Dextrose (Dextrose 50%-Water Syringe) 12.5 gm PRN Q15MIN PRN IV SEE COMMENTS; Start 07/23/17 at 09:15 Alprazolam (Xanax) 0.25 mg TID PRN PRN PO ANXIETY / AGITATION Last administered on 07/23/17 10:14; Start 07/23/17 at 10:00 Darbepoetin Toño (Aranesp) 60 mcg Fr SQ ; Start 07/23/17 at 21:00 Furosemide (Lasix) 40 mg BID92 IVP Last administered on 07/23/17 12:40; Start 07/23/17 at 14:00 Acetaminophen/ Hydrocodone Bitart (Lortab 5/325) 1 tab PRN Q4HRS PRN PO PAIN; Start 07/23/17 at 15:30 Acetaminophen/ Hydrocodone Bitart (Lortab 5/325) 2 tab PRN Q4HRS PRN PO PAIN Last administered on 07/23/17 15:48; Start 07/23/17 at 15:30 Bisacodyl (Dulcolax Supp) 10 mg PRN DAILY PRN [place] CONSTIPATION; Start 07/23/17 at 16:15 Active Scripts Active Reported Aspir 81 (Aspirin) 81 Mg Tablet. 1 Tab PO DAILY Cortizone 10 (Hydrocortisone) 28 Gm Gel..gram. 28 Gm TP Tylenol (Acetaminophen) 325 Mg Tablet 500 Mg PO Tylenol (Acetaminophen) 325 Mg Tablet 325 Mg PO Miralax (Polyethylene Glycol 3350) 17 Gm Powd.pack 1 Pkt PO PRN Levothyroxine Sodium 150 Mcg Tablet 1 Tab PO DAILY Ferrous Sulfate 325 Mg Tablet 65 Mg PO DAILY B-12 (Cyanocobalamin (Vitamin B-12)) 1,000 Mcg Tablet 1,000 Mcg PO DAILY Bystolic (Nebivolol) 10 Mg Tablet 10 Mg PO DAILY Furosemide 40 Mg Tablet 1 Tab PO DAILY Prochlorperazine Maleate 10 Mg Tablet 1 Tab PO Q6HRS Ondansetron Hcl 4 Mg Tablet 1 Tab PO PRN Q6HRS Pantoprazole Sodium 40 Mg Tablet. 1 Tab PO DAILY Losartan Potassium 100 Mg Tablet 100 Mg PO DAILY Glimepiride 4 Mg Tablet 4 Mg PO DAILY Janumet Xr 50-1,000 Mg Tablet (Sitagliptin Phos/Metformin Hcl) 1 Each Tbmp.24hr 1 Tab PO BID Mevacor (Lovastatin) 40 Mg Tablet 40 Mg PO DAILY Allergies Allergies: Coded Allergies: No Known Drug Allergies (Unverified , 07/07/17) Physical Exam General: Alert, Oriented X3, Cooperative HEENT: Atraumatic Lungs: Clear to auscultation Heart: Regular rate, Normal S1, Normal S2 Abdomen: Normal bowel sounds Extremities: Other (2+ pitting edema) Vitals VITALS Vital Signs Date Time Temp Pulse Resp B/P (MAP) Pulse Ox O2 Delivery O2 Flow Rate FiO2 07/23/17 15:00 97.8 58 160/59 (92) 97 Nasal Cannula 3.5 97.8 07/23/17 11:00 18 Labs Labs Laboratory Tests Test 07/23/17 03:03 07/23/17 03:35 07/23/17 04:02 07/23/17 04:50 Glucose (Fingerstick) 88 mg/dL (70-99) 111 mg/dL (70-99) White Blood Count 6.5 x10^3/uL (4.0-11.0) Red Blood Count 3.00 x10^6/uL (3.50-5.40) Hemoglobin 9.3 g/dL (12.0-15.5) Hematocrit 28.8 % (36.0-47.0) Mean Corpuscular Volume 96 fL (79-100) Mean Corpuscular Hemoglobin 31 pg (25-35) Mean Corpuscular Hemoglobin Concent 32 g/dL (31-37) Red Cell Distribution Width 15.6 % (11.5-14.5) Platelet Count 338 x10^3/uL (140-400) Neutrophils (%) (Auto) 75 % (31-73) Lymphocytes (%) (Auto) 11 % (24-48) Monocytes (%) (Auto) 11 % (0-9) Eosinophils (%) (Auto) 2 % (0-3) Basophils (%) (Auto) 1 % (0-3) Neutrophils # (Auto) 4.9 x10^3uL (1.8-7.7) Lymphocytes # (Auto) 0.7 x10^3/uL (1.0-4.8) Monocytes # (Auto) 0.7 x10^3/uL (0.0-1.1) Eosinophils # (Auto) 0.1 x10^3/uL (0.0-0.7) Basophils # (Auto) 0.0 x10^3/uL (0.0-0.2) Sodium Level 133 mmol/L (136-145) Potassium Level 5.4 mmol/L (3.5-5.1) Chloride Level 95 mmol/L (98-107) Carbon Dioxide Level 32 mmol/L (21-32) Anion Gap 6 (6-14) Blood Urea Nitrogen 90 mg/dL (7-20) Creatinine 3.1 mg/dL (0.6-1.0) Estimated GFR (Cockcroft-Gault) 14.2 BUN/Creatinine Ratio 29 (6-20) Glucose Level 137 mg/dL (70-99) Calcium Level 8.7 mg/dL (8.5-10.1) Magnesium Level 2.7 mg/dL (1.8-2.4) Total Bilirubin 0.3 mg/dL (0.2-1.0) Aspartate Amino Transf (AST/SGOT) 21 U/L (15-37) Alanine Aminotransferase (ALT/SGPT) 16 U/L (14-59) Alkaline Phosphatase 84 U/L (46-116) Troponin I Quantitative 0.035 ng/mL (0.000-0.055) QY-Ckw-A-Type Natriuretic Peptide 6058 pg/mL (0-449) Total Protein 7.2 g/dL (6.4-8.2) Albumin 2.9 g/dL (3.4-5.0) Albumin/Globulin Ratio 0.7 (1.0-1.7) Urine Collection Type U cath Urine Color Yellow Urine Clarity Clear Urine pH 6.5 Urine Specific Leland 1.010 Urine Protein 30 mg/dL (NEG-TRACE) Urine Glucose (UA) Negative mg/dL (NEG) Urine Ketones (Stick) Negative mg/dL (NEG) Urine Blood Negative (NEG) Urine Nitrite Negative (NEG) Urine Bilirubin Negative (NEG) Urine Urobilinogen Dipstick 0.2 mg/dL (0.2 mg/dL) Urine Leukocyte Esterase Negative (NEG) Urine RBC Occ /HPF (0-2) Urine WBC Occ /HPF (0-4) Urine Squamous Epithelial Cells Few /LPF Urine Bacteria 0 /HPF (0-FEW) Urine Mucus Slight /LPF Test 07/23/17 08:21 07/23/17 08:35 07/23/17 08:52 07/23/17 09:09 Glucose (Fingerstick) 34 mg/dL (70-99) 57 mg/dL (70-99) 70 mg/dL (70-99) 97 mg/dL (70-99) Test 07/23/17 09:37 07/23/17 10:45 07/23/17 12:13 Glucose (Fingerstick) 119 mg/dL (70-99) 208 mg/dL (70-99) Troponin I Quantitative 0.018 ng/mL (0.000-0.055) Laboratory Tests Test 07/23/17 03:03 07/23/17 03:35 07/23/17 04:02 07/23/17 04:50 Glucose (Fingerstick) 88 mg/dL (70-99) 111 mg/dL (70-99) White Blood Count 6.5 x10^3/uL (4.0-11.0) Red Blood Count 3.00 x10^6/uL (3.50-5.40) Hemoglobin 9.3 g/dL (12.0-15.5) Hematocrit 28.8 % (36.0-47.0) Mean Corpuscular Volume 96 fL (79-100) Mean Corpuscular Hemoglobin 31 pg (25-35) Mean Corpuscular Hemoglobin Concent 32 g/dL (31-37) Red Cell Distribution Width 15.6 % (11.5-14.5) Platelet Count 338 x10^3/uL (140-400) Neutrophils (%) (Auto) 75 % (31-73) Lymphocytes (%) (Auto) 11 % (24-48) Monocytes (%) (Auto) 11 % (0-9) Eosinophils (%) (Auto) 2 % (0-3) Basophils (%) (Auto) 1 % (0-3) Neutrophils # (Auto) 4.9 x10^3uL (1.8-7.7) Lymphocytes # (Auto) 0.7 x10^3/uL (1.0-4.8) Monocytes # (Auto) 0.7 x10^3/uL (0.0-1.1) Eosinophils # (Auto) 0.1 x10^3/uL (0.0-0.7) Basophils # (Auto) 0.0 x10^3/uL (0.0-0.2) Sodium Level 133 mmol/L (136-145) Potassium Level 5.4 mmol/L (3.5-5.1) Chloride Level 95 mmol/L (98-107) Carbon Dioxide Level 32 mmol/L (21-32) Anion Gap 6 (6-14) Blood Urea Nitrogen 90 mg/dL (7-20) Creatinine 3.1 mg/dL (0.6-1.0) Estimated GFR (Cockcroft-Gault) 14.2 BUN/Creatinine Ratio 29 (6-20) Glucose Level 137 mg/dL (70-99) Calcium Level 8.7 mg/dL (8.5-10.1) Magnesium Level 2.7 mg/dL (1.8-2.4) Total Bilirubin 0.3 mg/dL (0.2-1.0) Aspartate Amino Transf (AST/SGOT) 21 U/L (15-37) Alanine Aminotransferase (ALT/SGPT) 16 U/L (14-59) Alkaline Phosphatase 84 U/L (46-116) Troponin I Quantitative 0.035 ng/mL (0.000-0.055) XN-Bxv-H-Type Natriuretic Peptide 6058 pg/mL (0-449) Total Protein 7.2 g/dL (6.4-8.2) Albumin 2.9 g/dL (3.4-5.0) Albumin/Globulin Ratio 0.7 (1.0-1.7) Urine Collection Type U cath Urine Color Yellow Urine Clarity Clear Urine pH 6.5 Urine Specific Leland 1.010 Urine Protein 30 mg/dL (NEG-TRACE) Urine Glucose (UA) Negative mg/dL (NEG) Urine Ketones (Stick) Negative mg/dL (NEG) Urine Blood Negative (NEG) Urine Nitrite Negative (NEG) Urine Bilirubin Negative (NEG) Urine Urobilinogen Dipstick 0.2 mg/dL (0.2 mg/dL) Urine Leukocyte Esterase Negative (NEG) Urine RBC Occ /HPF (0-2) Urine WBC Occ /HPF (0-4) Urine Squamous Epithelial Cells Few /LPF Urine Bacteria 0 /HPF (0-FEW) Urine Mucus Slight /LPF Test 07/23/17 08:21 07/23/17 08:35 07/23/17 08:52 07/23/17 09:09 Glucose (Fingerstick) 34 mg/dL (70-99) 57 mg/dL (70-99) 70 mg/dL (70-99) 97 mg/dL (70-99) Test 07/23/17 09:37 07/23/17 10:45 07/23/17 12:13 Glucose (Fingerstick) 119 mg/dL (70-99) 208 mg/dL (70-99) Troponin I Quantitative 0.018 ng/mL (0.000-0.055) Assessment/Plan Assessment/Plan Patient with chronic CHF and chronic edema comes in after an episode of hypoglycemia. She also has chronic issues about her kidneys. At this point I don't think that there is some acute decompensation and I would not want to have her diureses significantly. Therefore I would just watch her and if possible elevate the legs. Thank you very much for asking me to participate in the care of this patient ROB ARSHAD MD Jul 23, 2017 17:14
[2017-07-23 19:45] VITALS: BP 177/97
[2017-07-23] MEDS: ATORVASTATIN CALCIUM 10 MG TABLET. PO SCH (20:24)
[2017-07-23] MEDS: DARBEPOETIN ALFA 60 MCG/0.3 ML DISP.SYRIN. SQ SCH (20:37)
[2017-07-23 23:30] VITALS: BP 135/48
[2017-07-24 03:45] VITALS: BP 95/47
[2017-07-24 05:47] LABS: BASO % 1 % (0-3); EOS % 2 % (0-3); HEMATOCRIT 25.5 % (36.0-47.0); HEMOGLOBIN 8.6 g/dL (12.0-15.5); LYMPH # 0.7 x10^3/uL (1.0-4.8); LYMPH % 12 % (24-48); MEAN CORPUSCULAR HEMOGLOBIN 32 pg (25-35); MEAN CORPUSCULAR HGB CONC 34 g/dL (31-37); MEAN CORPUSCULAR VOLUME 94 fL (79-100); MONO % 9 % (0-9); NEUT % 76 % (31-73); PLATELET COUNT 365 x10^3/uL (140-400); RED BLOOD COUNT 2.71 x10^6/uL (3.50-5.40); RED CELL DISTRIBUTION WIDTH 15.9 % (11.5-14.5); WHITE BLOOD COUNT 5.6 x10^3/uL (4.0-11.0)
[2017-07-24] MEDS: PROCHLORPERAZINE 5 MG TABLET. PO SCH ×4 (05:48→23:03)
[2017-07-24 06:37] LABS: CALCIUM 8.2 mg/dL (8.5-10.1); CREATININE 3.1 mg/dL (0.6-1.0); GFR 14.2
[2017-07-24 06:49] LABS: POTASSIUM 6.1 mmol/L (3.5-5.1)
[2017-07-24 07:00] VITALS: BP 140/53
[2017-07-24] MEDS ORDERED: SODIUM POLYSTYRENE SULFONATE 15 GM/60 ML ORAL.SUSP. PO ONE (08:00)
--- NOTE | 2017-07-24 08:47 | PDOC ---
GENERAL General: vss and afebrile. awake and alert. blood sugar this am is 314. K+ 6.1 and will recheck same and give kaexylate if above 6. chest clear and heart regular. edema 3-4+ which is her baseline. out of sorts mentally and little confused which is not like her. overall very difficult situation with fluid overload mainly driven by renal dysfunction resulting in fluid overload and chf. will try invokana for diabetes and it's diuretic effect. back to [place] once sugars under decent control. Problems: VITAL SIGNS Vital Signs: Vital Signs Date Time Temp Pulse Resp B/P (MAP) Pulse Ox O2 Delivery O2 Flow Rate FiO2 07/24/17 03:45 97.4 56 21 95/47 (63) 98 Nasal Cannula 3.5 97.4 ALLERGIES Allergies: Allergies Coded Allergies Type Severity Reaction Last Updated Verified No Known Drug Allergies 07/07/17 No MEDS Medications: Current Medications Medications (Trade) Dose Ordered Sig/Silvano Start Time Stop Time Status Last Admin Dose Admin Acetaminophen (Tylenol) 500 mg PRN Q4HRS 07/23/17 08:45 Acetaminophen/ Hydrocodone Bitart (Lortab 5/325) 2 tab PRN Q4HRS PRN 07/23/17 15:30 07/23/17 20:25 2 TAB Alprazolam (Xanax) 0.25 mg TID PRN PRN 07/23/17 10:00 07/23/17 20:25 0.25 MG Aspirin (Ecotrin) 81 mg DAILY 07/23/17 09:00 07/23/17 09:41 81 MG Atorvastatin Calcium (Lipitor) 10 mg QHS 07/23/17 21:00 07/23/17 20:24 10 MG Bisacodyl (Dulcolax Supp) 10 mg PRN DAILY PRN 07/23/17 16:15 Cyanocobalamin (Vitamin B-12) 1,000 mcg DAILY 07/23/17 09:00 07/23/17 09:40 1,000 MCG Darbepoetin Toño (Aranesp) 60 mcg Fr 07/23/17 21:00 07/23/17 20:37 60 MCG Dextrose (Dextrose 50%-Water Syringe) 12.5 gm PRN Q15MIN PRN 07/23/17 09:15 Ferrous Sulfate (Feosol) 65 mg DAILY 07/23/17 09:00 07/23/17 09:41 65 MG Furosemide (Lasix) 40 mg BID92 07/23/17 14:00 07/23/17 12:40 40 MG Insulin Aspart (NovoLOG) 0-5 UNITS TIDWMEALS 07/23/17 12:00 07/23/17 17:47 2 UNITS Levothyroxine Sodium (Synthroid) 150 mcg DAILY 07/23/17 09:00 07/23/17 09:41 150 MCG Losartan Potassium (Cozaar) 50 mg DAILY 07/23/17 09:00 07/23/17 12:16 DC 07/23/17 09:41 50 MG Metoprolol Tartrate (Lopressor) 50 mg BID 07/23/17 10:00 07/23/17 20:25 50 MG Morphine Sulfate 2 mg PRN Q2HR PRN 07/23/17 05:00 07/24/17 04:59 DC Ondansetron HCl (Zofran Odt) 4 mg PRN Q6HRS PRN 07/23/17 09:15 Ondansetron HCl (Zofran) 4 mg PRN Q8HRS PRN 07/23/17 05:00 07/23/17 09:33 DC Pantoprazole Sodium (Protonix) 40 mg DAILY 07/23/17 09:00 07/23/17 09:41 40 MG Polyethylene Glycol (miraLAX PACKET) 17 gm DAILY 07/23/17 09:30 07/23/17 15:48 17 GM Prochlorperazine Maleate (Compazine) 10 mg Q6HRS 07/23/17 12:00 07/24/17 05:48 10 MG Sodium Polystyrene Sulfonate (Kayexalate) 30 gm 1X ONCE 07/24/17 08:00 07/24/17 08:01 DC LAB Lab: Laboratory Tests Test 07/23/17 08:52 07/23/17 09:09 07/23/17 09:37 07/23/17 10:45 Glucose (Fingerstick) 70 mg/dL (70-99) 97 mg/dL (70-99) 119 mg/dL (70-99) Troponin I Quantitative 0.018 ng/mL (0.000-0.055) Test 07/23/17 12:13 07/23/17 12:52 07/23/17 16:55 07/23/17 19:30 Glucose (Fingerstick) 208 mg/dL (70-99) 178 mg/dL (70-99) Nasal Screen MRSA (PCR) Positive (Negative) Troponin I Quantitative 0.017 ng/mL (0.000-0.055) Test 07/23/17 20:53 07/24/17 04:45 Glucose (Fingerstick) 311 mg/dL (70-99) White Blood Count 5.6 x10^3/uL (4.0-11.0) Red Blood Count 2.71 x10^6/uL (3.50-5.40) Hemoglobin 8.6 g/dL (12.0-15.5) Hematocrit 25.5 % (36.0-47.0) Mean Corpuscular Volume 94 fL (79-100) Mean Corpuscular Hemoglobin 32 pg (25-35) Mean Corpuscular Hemoglobin Concent 34 g/dL (31-37) Red Cell Distribution Width 15.9 % (11.5-14.5) Platelet Count 365 x10^3/uL (140-400) Neutrophils (%) (Auto) 76 % (31-73) Lymphocytes (%) (Auto) 12 % (24-48) Monocytes (%) (Auto) 9 % (0-9) Eosinophils (%) (Auto) 2 % (0-3) Basophils (%) (Auto) 1 % (0-3) Neutrophils # (Auto) 4.3 x10^3uL (1.8-7.7) Lymphocytes # (Auto) 0.7 x10^3/uL (1.0-4.8) Monocytes # (Auto) 0.5 x10^3/uL (0.0-1.1) Eosinophils # (Auto) 0.1 x10^3/uL (0.0-0.7) Basophils # (Auto) 0.0 x10^3/uL (0.0-0.2) Sodium Level 130 mmol/L (136-145) Potassium Level 6.1 mmol/L (3.5-5.1) Chloride Level 93 mmol/L (98-107) Carbon Dioxide Level 29 mmol/L (21-32) Anion Gap 8 (6-14) Blood Urea Nitrogen 88 mg/dL (7-20) Creatinine 3.1 mg/dL (0.6-1.0) Estimated GFR (Cockcroft-Gault) 14.2 Glucose Level 314 mg/dL (70-99) Calcium Level 8.2 mg/dL (8.5-10.1) Phosphorus Level 5.2 mg/dL (2.6-4.7) JESSICA GREWAL MD Jul 24, 2017 08:47
[2017-07-24] MEDS: METOPROLOL TART IMMED RELEASE 50 MG TABLET. PO SCH ×2 (09:00→20:25)
[2017-07-24] MEDS: PANTOPRAZOLE 40 MG TABLET.DR. PO SCH (09:00)
[2017-07-24] MEDS: POLYETHYLENE GLYCOL 3350 17 GM PACKET. PO SCH (09:01)
[2017-07-24] MEDS: ASPIRIN ENTERIC COATED 81 MG TABLET.DR. PO SCH (09:01)
[2017-07-24] MEDS: FUROSEMIDE 40 MG/4 ML VIAL. IVP SCH ×4 (09:01→23:03)
[2017-07-24] MEDS: CYANOCOBALAMIN (VITAMIN B-12) 1,000 MCG TABLET. PO SCH (09:01)
[2017-07-24] MEDS: LEVOTHYROXINE 150 MCG TABLET PO SCH (09:01)
[2017-07-24] MEDS: FERROUS SULFATE 325 MG TABLET. PO SCH (09:06)
[2017-07-24] MEDS: INSULIN ASPART 300 UNITS/3 ML INSULN.PEN SQ SCH ×3 (09:12→17:23)
--- NOTE | 2017-07-24 09:37 | HP ---
ADMIT DATE: 07/23/2017 CHIEF COMPLAINT AND HISTORY OF PRESENT ILLNESS: This 86-year-old white female who is well known to me from followup in the office. The patient was transferred from assisted living to the Emergency Room with hypoglycemia and sweating on the day of admission. She was found also to be in congestive heart failure, which was more or less her baseline due to her underlying severe renal dysfunction and refusal to do dialysis. She was admitted for the same. PAST MEDICAL HISTORY: Remarkable for coronary artery disease, DVT, long-standing diabetes, hypertension, hyperlipidemia, hypothyroidism, chronic kidney disease stage V, recurrent urinary tract infections. PAST SURGICAL HISTORY: She had a prior cholecystectomy, CABG, hip replacement, hysterectomy, IVC filter placed. MEDICATIONS: Brought with the patient, listed on the computer and have been addressed. ALLERGIES: She has no known drug allergies. SOCIAL HISTORY: She is recently . Has a very supportive family, is nonsmoker, nondrinker, does not abuse drugs, is currently living in assisted living at the [facility]. FAMILY HISTORY: Noncontributory. REVIEW OF SYSTEMS: Remarkable for her being a little irritated with the way things are going here, which is out of character for her and may be some mild confusion. She is nonspecific, but feels there is some terribly wrong, was unable to describe exactly how that feels. PHYSICAL EXAMINATION: GENERAL: She is well-developed, well-nourished white female, in no acute distress. VITAL SIGNS: Stable. She is afebrile. HEAD, EYE, EARS, NOSE AND THROAT: Remarkable for glasses. NECK: Supple, without bruit or thyromegaly. CHEST: Reveals somewhat decreased breath sounds at both bases, but clear. HEART: Regular rate and rhythm without S3, S4 or murmur. ABDOMEN: Soft, nontender, without hepatosplenomegaly or masses. EXTREMITIES: Revealed 3-4+ pitting edema from the feet to the knees, which is her baseline. NEUROLOGIC: Remarkable for mild confusion, but nonfocal. IMPRESSION: 1. Hypoglycemia, likely related to her chronic kidney disease sulfonylurea which she is on and she has prior and this will need to be stopped. 2. Congestive heart failure as discussed above. 3. Other problems listed above. PLAN: The patient has been admitted. Sulfonylurea will be held. Sliding scale insulin will be instituted. I am going to try get her on Invokana or equivalent for her sugars here as this would have a diuretic effect and might help the fluid. In addition, once again she is refusing any sort of dialysis, etc. JESSICA GREWAL MD DR: BRE/ruddy JOB#: [id number] / [id number]
[2017-07-24 11:00] VITALS: BP 156/53
--- NOTE | 2017-07-24 11:31 | PDOC ---
Renal-Progress Notes Subjective Notes Notes NO NEW COMPLAINTS History of Present Illness Hx of present illness NO CHANGE Vitals Vitals Vital Signs Date Time Temp Pulse Resp B/P (MAP) Pulse Ox O2 Delivery O2 Flow Rate FiO2 07/24/17 09:00 64 140/53 07/24/17 08:00 Nasal Cannula 3.5 07/24/17 07:00 98.1 20 100 98.1 Weight Weight [ ] Labs Labs Laboratory Tests Test 07/23/17 12:13 07/23/17 12:52 07/23/17 16:55 07/23/17 19:30 Glucose (Fingerstick) 208 mg/dL (70-99) 178 mg/dL (70-99) Nasal Screen MRSA (PCR) Positive (Negative) Troponin I Quantitative 0.017 ng/mL (0.000-0.055) Test 07/23/17 20:53 07/24/17 04:45 07/24/17 08:16 07/24/17 09:10 Glucose (Fingerstick) 311 mg/dL (70-99) 199 mg/dL (70-99) White Blood Count 5.6 x10^3/uL (4.0-11.0) Red Blood Count 2.71 x10^6/uL (3.50-5.40) Hemoglobin 8.6 g/dL (12.0-15.5) Hematocrit 25.5 % (36.0-47.0) Mean Corpuscular Volume 94 fL (79-100) Mean Corpuscular Hemoglobin 32 pg (25-35) Mean Corpuscular Hemoglobin Concent 34 g/dL (31-37) Red Cell Distribution Width 15.9 % (11.5-14.5) Platelet Count 365 x10^3/uL (140-400) Neutrophils (%) (Auto) 76 % (31-73) Lymphocytes (%) (Auto) 12 % (24-48) Monocytes (%) (Auto) 9 % (0-9) Eosinophils (%) (Auto) 2 % (0-3) Basophils (%) (Auto) 1 % (0-3) Neutrophils # (Auto) 4.3 x10^3uL (1.8-7.7) Lymphocytes # (Auto) 0.7 x10^3/uL (1.0-4.8) Monocytes # (Auto) 0.5 x10^3/uL (0.0-1.1) Eosinophils # (Auto) 0.1 x10^3/uL (0.0-0.7) Basophils # (Auto) 0.0 x10^3/uL (0.0-0.2) Sodium Level 130 mmol/L (136-145) Potassium Level 6.1 mmol/L (3.5-5.1) 5.9 mmol/L (3.5-5.1) Chloride Level 93 mmol/L (98-107) Carbon Dioxide Level 29 mmol/L (21-32) Anion Gap 8 (6-14) Blood Urea Nitrogen 88 mg/dL (7-20) Creatinine 3.1 mg/dL (0.6-1.0) Estimated GFR (Cockcroft-Gault) 14.2 Glucose Level 314 mg/dL (70-99) Calcium Level 8.2 mg/dL (8.5-10.1) Phosphorus Level 5.2 mg/dL (2.6-4.7) Review of Systems Constitutional: yes: weakness, alert, oriented Ears/Nose/Throat: Yes: no symptom reported Eyes: Yes: no symptom reported Pulmonary: Yes dyspnea Cardiovascular: Yes no symptom reported, Yes edema Gastrointestional: Yes: constipation Genitourinary: Yes: incontinence Musculoskeletal: Yes: muscle stiffness Skin: Yes no symptom reported Physical Exam General Appearance: no apparent distress Skin: warm Respiratory: decreased breath sounds Heart: S1S2, RRR Abdomen: soft, N/T Extremities: pulses present, edema Neurology: alert Assessment Assessment IMP ANASARCA ANEMIA ESRD DM II HTN HYPERKALEMIA PLAN INCREASE LASIX SUPPORTIVE CARE NO DIALYSIS FINA ESPINOZA MD Jul 24, 2017 11:31
[2017-07-24] MEDS: metOLazone 2.5 MG TABLET PO SCH (13:11)
[2017-07-24] MEDS ORDERED: ACETAMINOPHEN 325 MG TABLET. PO PRN (13:30)
[2017-07-24] MEDS ORDERED: ACETAMINOPHEN 500 MG TABLET PO PRN (13:30)
--- NOTE | 2017-07-24 14:40 | PDOC ---
PROGRESS NOTES Subjective Subjective Patient is breathing a little easier Objective Objective Vital Signs Date Time Temp Pulse Resp B/P (MAP) Pulse Ox O2 Delivery O2 Flow Rate FiO2 07/24/17 11:00 97.9 67 20 156/53 (87) 93 Nasal Cannula 3.5 97.9 Physical Exam Physical Exam Moving air better. No cardiac changes No significant changes seen edema. Assessment Assessment Patient progressing slowly. I agree with present plan. Problems Medical Problems: (1) Anemia Status: Acute (2) Chronic kidney disease Status: Acute (3) Congestive heart failure Status: Acute (4) Hyperkalemia Status: Acute Comment Review of Relevant I have reviewed the following items jong (where applicable) has been applied. Labs Laboratory Tests Test 07/23/17 03:03 07/23/17 03:35 07/23/17 04:02 07/23/17 04:50 Glucose (Fingerstick) 88 mg/dL (70-99) 111 mg/dL (70-99) White Blood Count 6.5 x10^3/uL (4.0-11.0) Red Blood Count 3.00 x10^6/uL (3.50-5.40) Hemoglobin 9.3 g/dL (12.0-15.5) Hematocrit 28.8 % (36.0-47.0) Mean Corpuscular Volume 96 fL (79-100) Mean Corpuscular Hemoglobin 31 pg (25-35) Mean Corpuscular Hemoglobin Concent 32 g/dL (31-37) Red Cell Distribution Width 15.6 % (11.5-14.5) Platelet Count 338 x10^3/uL (140-400) Neutrophils (%) (Auto) 75 % (31-73) Lymphocytes (%) (Auto) 11 % (24-48) Monocytes (%) (Auto) 11 % (0-9) Eosinophils (%) (Auto) 2 % (0-3) Basophils (%) (Auto) 1 % (0-3) Neutrophils # (Auto) 4.9 x10^3uL (1.8-7.7) Lymphocytes # (Auto) 0.7 x10^3/uL (1.0-4.8) Monocytes # (Auto) 0.7 x10^3/uL (0.0-1.1) Eosinophils # (Auto) 0.1 x10^3/uL (0.0-0.7) Basophils # (Auto) 0.0 x10^3/uL (0.0-0.2) Sodium Level 133 mmol/L (136-145) Potassium Level 5.4 mmol/L (3.5-5.1) Chloride Level 95 mmol/L (98-107) Carbon Dioxide Level 32 mmol/L (21-32) Anion Gap 6 (6-14) Blood Urea Nitrogen 90 mg/dL (7-20) Creatinine 3.1 mg/dL (0.6-1.0) Estimated GFR (Cockcroft-Gault) 14.2 BUN/Creatinine Ratio 29 (6-20) Glucose Level 137 mg/dL (70-99) Calcium Level 8.7 mg/dL (8.5-10.1) Magnesium Level 2.7 mg/dL (1.8-2.4) Total Bilirubin 0.3 mg/dL (0.2-1.0) Aspartate Amino Transf (AST/SGOT) 21 U/L (15-37) Alanine Aminotransferase (ALT/SGPT) 16 U/L (14-59) Alkaline Phosphatase 84 U/L (46-116) Troponin I Quantitative 0.035 ng/mL (0.000-0.055) FS-Qcn-T-Type Natriuretic Peptide 6058 pg/mL (0-449) Total Protein 7.2 g/dL (6.4-8.2) Albumin 2.9 g/dL (3.4-5.0) Albumin/Globulin Ratio 0.7 (1.0-1.7) Urine Collection Type U cath Urine Color Yellow Urine Clarity Clear Urine pH 6.5 Urine Specific Berkley 1.010 Urine Protein 30 mg/dL (NEG-TRACE) Urine Glucose (UA) Negative mg/dL (NEG) Urine Ketones (Stick) Negative mg/dL (NEG) Urine Blood Negative (NEG) Urine Nitrite Negative (NEG) Urine Bilirubin Negative (NEG) Urine Urobilinogen Dipstick 0.2 mg/dL (0.2 mg/dL) Urine Leukocyte Esterase Negative (NEG) Urine RBC Occ /HPF (0-2) Urine WBC Occ /HPF (0-4) Urine Squamous Epithelial Cells Few /LPF Urine Bacteria 0 /HPF (0-FEW) Urine Mucus Slight /LPF Test 07/23/17 08:21 07/23/17 08:35 07/23/17 08:52 07/23/17 09:09 Glucose (Fingerstick) 34 mg/dL (70-99) 57 mg/dL (70-99) 70 mg/dL (70-99) 97 mg/dL (70-99) Test 07/23/17 09:37 07/23/17 10:45 07/23/17 12:13 07/23/17 12:52 Glucose (Fingerstick) 119 mg/dL (70-99) 208 mg/dL (70-99) Troponin I Quantitative 0.018 ng/mL (0.000-0.055) Nasal Screen MRSA (PCR) Positive (Negative) Test 07/23/17 16:55 07/23/17 19:30 07/23/17 20:53 07/24/17 04:45 Glucose (Fingerstick) 178 mg/dL (70-99) 311 mg/dL (70-99) Troponin I Quantitative 0.017 ng/mL (0.000-0.055) White Blood Count 5.6 x10^3/uL (4.0-11.0) Red Blood Count 2.71 x10^6/uL (3.50-5.40) Hemoglobin 8.6 g/dL (12.0-15.5) Hematocrit 25.5 % (36.0-47.0) Mean Corpuscular Volume 94 fL (79-100) Mean Corpuscular Hemoglobin 32 pg (25-35) Mean Corpuscular Hemoglobin Concent 34 g/dL (31-37) Red Cell Distribution Width 15.9 % (11.5-14.5) Platelet Count 365 x10^3/uL (140-400) Neutrophils (%) (Auto) 76 % (31-73) Lymphocytes (%) (Auto) 12 % (24-48) Monocytes (%) (Auto) 9 % (0-9) Eosinophils (%) (Auto) 2 % (0-3) Basophils (%) (Auto) 1 % (0-3) Neutrophils # (Auto) 4.3 x10^3uL (1.8-7.7) Lymphocytes # (Auto) 0.7 x10^3/uL (1.0-4.8) Monocytes # (Auto) 0.5 x10^3/uL (0.0-1.1) Eosinophils # (Auto) 0.1 x10^3/uL (0.0-0.7) Basophils # (Auto) 0.0 x10^3/uL (0.0-0.2) Sodium Level 130 mmol/L (136-145) Potassium Level 6.1 mmol/L (3.5-5.1) Chloride Level 93 mmol/L (98-107) Carbon Dioxide Level 29 mmol/L (21-32) Anion Gap 8 (6-14) Blood Urea Nitrogen 88 mg/dL (7-20) Creatinine 3.1 mg/dL (0.6-1.0) Estimated GFR (Cockcroft-Gault) 14.2 Glucose Level 314 mg/dL (70-99) Calcium Level 8.2 mg/dL (8.5-10.1) Phosphorus Level 5.2 mg/dL (2.6-4.7) Test 07/24/17 08:16 07/24/17 09:10 07/24/17 12:00 Glucose (Fingerstick) 199 mg/dL (70-99) 275 mg/dL (70-99) Potassium Level 5.9 mmol/L (3.5-5.1) Laboratory Tests Test 07/23/17 16:55 07/23/17 19:30 07/23/17 20:53 07/24/17 04:45 Glucose (Fingerstick) 178 mg/dL (70-99) 311 mg/dL (70-99) Troponin I Quantitative 0.017 ng/mL (0.000-0.055) White Blood Count 5.6 x10^3/uL (4.0-11.0) Red Blood Count 2.71 x10^6/uL (3.50-5.40) Hemoglobin 8.6 g/dL (12.0-15.5) Hematocrit 25.5 % (36.0-47.0) Mean Corpuscular Volume 94 fL (79-100) Mean Corpuscular Hemoglobin 32 pg (25-35) Mean Corpuscular Hemoglobin Concent 34 g/dL (31-37) Red Cell Distribution Width 15.9 % (11.5-14.5) Platelet Count 365 x10^3/uL (140-400) Neutrophils (%) (Auto) 76 % (31-73) Lymphocytes (%) (Auto) 12 % (24-48) Monocytes (%) (Auto) 9 % (0-9) Eosinophils (%) (Auto) 2 % (0-3) Basophils (%) (Auto) 1 % (0-3) Neutrophils # (Auto) 4.3 x10^3uL (1.8-7.7) Lymphocytes # (Auto) 0.7 x10^3/uL (1.0-4.8) Monocytes # (Auto) 0.5 x10^3/uL (0.0-1.1) Eosinophils # (Auto) 0.1 x10^3/uL (0.0-0.7) Basophils # (Auto) 0.0 x10^3/uL (0.0-0.2) Sodium Level 130 mmol/L (136-145) Potassium Level 6.1 mmol/L (3.5-5.1) Chloride Level 93 mmol/L (98-107) Carbon Dioxide Level 29 mmol/L (21-32) Anion Gap 8 (6-14) Blood Urea Nitrogen 88 mg/dL (7-20) Creatinine 3.1 mg/dL (0.6-1.0) Estimated GFR (Cockcroft-Gault) 14.2 Glucose Level 314 mg/dL (70-99) Calcium Level 8.2 mg/dL (8.5-10.1) Phosphorus Level 5.2 mg/dL (2.6-4.7) Test 07/24/17 08:16 07/24/17 09:10 07/24/17 12:00 Glucose (Fingerstick) 199 mg/dL (70-99) 275 mg/dL (70-99) Potassium Level 5.9 mmol/L (3.5-5.1) Medications Current Medications Furosemide (Lasix) 40 mg 1X ONCE IVP Last administered on 07/23/17t 06:04; Start 07/23/17 at 05:30; Stop 07/23/17 at 05:31; Status DC Ondansetron HCl (Zofran) 4 mg PRN Q8HRS PRN IV NAUSEA/VOMITING; Start 07/23/17 at 05:00; Stop 07/23/17 at 09:33; Status DC Morphine Sulfate 2 mg PRN Q2HR PRN IV SEVERE PAIN; Start 07/23/17 at 05:00; Stop 07/24/17 at 04:59; Status DC Acetaminophen (Tylenol) 650 mg PRN Q4HRS PRN PO FEVER; Start 07/23/17 at 05:00 ; Stop 07/24/17 at 04:59; Status Cancel Acetaminophen (Tylenol) 325 mg PRN Q4HRS PO ; Start 07/23/17 at 08:45; Stop at 13:18; Status DC Acetaminophen (Tylenol) 500 mg PRN Q4HRS PO ; Start 07/23/17 at 08:45; Stop at 13:18; Status DC Aspirin (Ecotrin) 81 mg DAILY PO Last administered on 07/24/17 09:01; Start at 09:00 Cyanocobalamin (Vitamin B-12) 1,000 mcg DAILY PO Last administered on 09:01; Start 07/23/17 at 09:00 Ferrous Sulfate (Feosol) 65 mg DAILY PO Last administered on 07/24/17 09:06; Start 07/23/17 at 09:00 Furosemide (Lasix) 40 mg DAILY PO ; Start 07/23/17 at 09:00; Stop 07/23/17 at 12 :16; Status DC Levothyroxine Sodium (Synthroid) 150 mcg DAILY PO Last administered on 09:01; Start 07/23/17 at 09:00 Pantoprazole Sodium (Protonix) 40 mg DAILY PO Last administered on 07/24/17 09 :00; Start 07/23/17 at 09:00 Polyethylene Glycol (miraLAX PACKET) 17 gm DAILY PO Last administered on 09:01; Start 07/23/17 at 09:30 Prochlorperazine Maleate (Compazine) 10 mg Q6HRS PO Last administered on 13:11; Start 07/23/17 at 12:00 Losartan Potassium (Cozaar) 50 mg DAILY PO Last administered on 07/23/17 09:41 ; Start 07/23/17 at 09:00; Stop 07/23/17 at 12:16; Status DC Atorvastatin Calcium (Lipitor) 10 mg QHS PO Last administered on 07/23/17 20: 24; Start 07/23/17 at 21:00 Metoprolol Tartrate (Lopressor) 50 mg BID PO Last administered on 07/24/17 09: 00; Start 07/23/17 at 10:00 Ondansetron HCl (Zofran Odt) 4 mg PRN Q6HRS PRN PO NAUSEA/VOMITING; Start 07/23 at 09:15 Insulin Aspart (NovoLOG) 0-5 UNITS TIDWMEALS SQ Last administered on 07/24/17 13:15; Start 07/23/17 at 12:00 Dextrose (Dextrose 50%-Water Syringe) 12.5 gm PRN Q15MIN PRN IV SEE COMMENTS; Start 07/23/17 at 09:15 Alprazolam (Xanax) 0.25 mg TID PRN PRN PO ANXIETY / AGITATION Last administered on 07/23/17 20:25; Start 07/23/17 at 10:00 Darbepoetin Toño (Aranesp) 60 mcg Fr SQ Last administered on 07/23/17 20:37; Start 07/23/17 at 21:00 Furosemide (Lasix) 40 mg BID92 IVP Last administered on 07/24/17 09:01; Start 07/23/17 at 14:00; Stop 07/24/17 at 11:33; Status DC Acetaminophen/ Hydrocodone Bitart (Lortab 5/325) 1 tab PRN Q4HRS PRN PO PAIN; Start 07/23/17 at 15:30 Acetaminophen/ Hydrocodone Bitart (Lortab 5/325) 2 tab PRN Q4HRS PRN PO PAIN Last administered on 07/23/17 20:25; Start 07/23/17 at 15:30 Bisacodyl (Dulcolax Supp) 10 mg PRN DAILY PRN [place] CONSTIPATION; Start 07/23/17 at 16:15 Sodium Polystyrene Sulfonate (Kayexalate) 30 gm 1X ONCE PO Last administered on 07/24/17 09:01; Start 07/24/17 at 08:00; Stop 07/24/17 at 08:01; Status DC Furosemide (Lasix) 40 mg Q6HRS IVP Last administered on 07/24/17 13:11; Start 9/30/17 at 12:00 Metolazone (Zaroxolyn) 2.5 mg DAILY PO Last administered on 07/24/17t 13:11; Start 07/24/17 at 12:00 Acetaminophen (Tylenol) 500 mg PRN Q4HRS PRN PO PAIN; Start 07/24/17 at 13:30 Acetaminophen (Tylenol) 325 mg PRN Q4HRS PRN PO PAIN; Start 07/24/17 at 13:30 Active Scripts Active Reported Aspir 81 (Aspirin) 81 Mg Tablet.dr 1 Tab PO DAILY Cortizone 10 (Hydrocortisone) 28 Gm Gel..gram. 28 Gm TP Tylenol (Acetaminophen) 325 Mg Tablet 500 Mg PO Tylenol (Acetaminophen) 325 Mg Tablet 325 Mg PO Miralax (Polyethylene Glycol 3350) 17 Gm Powd.pack 1 Pkt PO PRN Levothyroxine Sodium 150 Mcg Tablet 1 Tab PO DAILY Ferrous Sulfate 325 Mg Tablet 65 Mg PO DAILY B-12 (Cyanocobalamin (Vitamin B-12)) 1,000 Mcg Tablet 1,000 Mcg PO DAILY Bystolic (Nebivolol) 10 Mg Tablet 10 Mg PO DAILY Furosemide 40 Mg Tablet 1 Tab PO DAILY Prochlorperazine Maleate 10 Mg Tablet 1 Tab PO Q6HRS Ondansetron Hcl 4 Mg Tablet 1 Tab PO PRN Q6HRS Pantoprazole Sodium 40 Mg Tablet.dr 1 Tab PO DAILY Losartan Potassium 100 Mg Tablet 100 Mg PO DAILY Glimepiride 4 Mg Tablet 4 Mg PO DAILY Janumet Xr 50-1,000 Mg Tablet (Sitagliptin Phos/Metformin Hcl) 1 Each Tbmp.24hr 1 Tab PO BID Mevacor (Lovastatin) 40 Mg Tablet 40 Mg PO DAILY Vitals/I & O Vital Sign - Last 24 Hours 07/23/17 07/23/17 07/23/17 07/23/17 15:00 19:45 20:00 20:25 Temp 97.8 97.1 97.8 97.1 Pulse 58 62 62 Resp 21 B/P (MAP) 160/59 (92) 177/97 (123) 177/97 Pulse Ox 97 98 O2 Delivery Nasal Cannula Nasal Cannula Nasal Cannula O2 Flow Rate 3.5 5.0 3.5 07/23/17 07/23/17 07/23/17 07/24/17 20:25 21:25 23:30 03:45 Temp 97.4 97.4 97.4 97.4 Pulse 58 56 Resp 20 20 20 21 B/P (MAP) 135/48 (77) 95/47 (63) Pulse Ox 95 98 98 O2 Delivery Nasal Cannula Nasal Cannula Nasal Cannula Nasal Cannula O2 Flow Rate 3.5 3.5 3.5 3.5 07/24/17 07/24/17 07/24/17 07/24/17 07:00 08:00 09:00 11:00 Temp 98.1 97.9 98.1 97.9 Pulse 64 64 67 Resp 20 20 B/P (MAP) 140/53 (82) 140/53 156/53 (87) Pulse Ox 100 93 O2 Delivery Nasal Cannula Nasal Cannula Nasal Cannula O2 Flow Rate 3.5 3.5 3.5 ROB ARSHAD MD Jul 24, 2017 14:40
[2017-07-24 15:12] VITALS: BP 122/51
[2017-07-24] MEDS: HYDROcodone/APAP 5/325MG 1 TAB TABLET PO PRN (16:06)
[2017-07-24] MEDS: ALPRAZolam 0.25 MG TABLET PO PRN (16:06)
[2017-07-24 19:20] VITALS: BP 111/45
[2017-07-24] MEDS: ATORVASTATIN CALCIUM 10 MG TABLET. PO SCH (20:25)
[2017-07-24 23:15] VITALS: BP 121/77
[2017-07-25 03:30] VITALS: BP 135/60
[2017-07-25] MEDS: ALPRAZolam 0.25 MG TABLET PO PRN ×3 (03:34→20:31)
[2017-07-25] MEDS: HYDROcodone/APAP 5/325MG 1 TAB TABLET PO PRN ×3 (03:35→17:41)
[2017-07-25] MEDS: PROCHLORPERAZINE 5 MG TABLET. PO SCH ×4 (05:05→23:03)
[2017-07-25] MEDS: FUROSEMIDE 40 MG/4 ML VIAL. IVP SCH ×4 (05:05→23:03)
[2017-07-25 06:22] LABS: CALCIUM 8.4 mg/dL (8.5-10.1); CREATININE 3.1 mg/dL (0.6-1.0); GFR 14.2; POTASSIUM 4.4 mmol/L (3.5-5.1)
[2017-07-25 07:00] VITALS: BP 125/87
[2017-07-25] MEDS: METOPROLOL TART IMMED RELEASE 50 MG TABLET. PO SCH ×2 (08:28→20:32)
[2017-07-25] MEDS: ASPIRIN ENTERIC COATED 81 MG TABLET.DR. PO SCH (08:28)
[2017-07-25] MEDS: PANTOPRAZOLE 40 MG TABLET.DR. PO SCH (08:28)
[2017-07-25] MEDS: CYANOCOBALAMIN (VITAMIN B-12) 1,000 MCG TABLET. PO SCH (08:28)
[2017-07-25] MEDS: LEVOTHYROXINE 150 MCG TABLET PO SCH (08:29)
[2017-07-25] MEDS: FERROUS SULFATE 325 MG TABLET. PO SCH (08:29)
[2017-07-25] MEDS: POLYETHYLENE GLYCOL 3350 17 GM PACKET. PO SCH (08:30)
[2017-07-25] MEDS: metOLazone 2.5 MG TABLET PO SCH (08:33)
[2017-07-25] MEDS: INSULIN ASPART 300 UNITS/3 ML INSULN.PEN SQ SCH ×3 (08:40→17:39)
[2017-07-25 11:00] VITALS: BP 114/41
--- NOTE | 2017-07-25 11:56 | PDOC ---
Renal-Progress Notes Subjective Notes Notes NO NEW COMPLAINTS History of Present Illness Hx of present illness NO CHANGE Vitals Vitals Vital Signs Date Time Temp Pulse Resp B/P (MAP) Pulse Ox O2 Delivery O2 Flow Rate FiO2 07/25/17 10:59 18 94 Nasal Cannula 3.5 07/25/17 08:28 77 125/87 07/25/17 07:00 97.7 97.7 Weight Weight [ ] Labs Labs Laboratory Tests Test 07/24/17 12:00 07/24/17 16:26 07/24/17 20:50 07/25/17 05:40 Glucose (Fingerstick) 275 mg/dL (70-99) 293 mg/dL (70-99) 158 mg/dL (70-99) Sodium Level 132 mmol/L (136-145) Potassium Level 4.4 mmol/L (3.5-5.1) Chloride Level 94 mmol/L (98-107) Carbon Dioxide Level 33 mmol/L (21-32) Anion Gap 5 (6-14) Blood Urea Nitrogen 100 mg/dL (7-20) Creatinine 3.1 mg/dL (0.6-1.0) Estimated GFR (Cockcroft-Gault) 14.2 Glucose Level 216 mg/dL (70-99) Calcium Level 8.4 mg/dL (8.5-10.1) Magnesium Level 2.8 mg/dL (1.8-2.4) Test 07/25/17 07:59 Glucose (Fingerstick) 183 mg/dL (70-99) Review of Systems Constitutional: yes: weakness, alert, oriented Ears/Nose/Throat: Yes: no symptom reported Eyes: Yes: no symptom reported Pulmonary: Yes dyspnea Cardiovascular: Yes no symptom reported, Yes edema Gastrointestional: Yes: constipation Genitourinary: Yes: incontinence Musculoskeletal: Yes: muscle stiffness Skin: Yes no symptom reported Physical Exam General Appearance: no apparent distress Skin: warm Respiratory: decreased breath sounds Heart: S1S2, RRR Abdomen: soft, N/T Extremities: pulses present, edema Neurology: alert Assessment Assessment IMP ANASARCA ANEMIA ESRD DM II HTN HYPERKALEMIA-RESOLVED PLAN CONT LASIX SUPPORTIVE CARE POOR PROGNOSIS NO DIALYSIS PALLIATIVE CARE MOST APPROPRIATE FOR HER BUT SHE WANTS EVERYTHING DONE BUT DIALYSIS FINA ESPINOZA MD Jul 25, 2017 11:56
--- NOTE | 2017-07-25 12:48 | PDOC ---
SUBJECTIVE Subjective sleepy, looks comfortable without new complaints OBJECTIVE Vital Signs Vital Signs Date Time Temp Pulse Resp B/P (MAP) Pulse Ox O2 Delivery O2 Flow Rate FiO2 07/25/17 11:00 97.9 51 16 114/41 (65) 98 Nasal Cannula 3.5 97.9 07/25/17 10:59 18 94 Nasal Cannula 3.5 07/25/17 09:42 16 07/25/17 08:28 77 125/87 07/25/17 08:00 Nasal Cannula 3.5 07/25/17 07:00 97.7 77 20 125/87 (100) 94 Nasal Cannula 3.5 97.7 07/25/17 03:35 20 Nasal Cannula 3.5 07/25/17 03:30 97.7 54 20 135/60 (85) 94 Nasal Cannula 3.5 97.7 07/24/17 23:15 97.4 51 19 121/77 (92) 98 Nasal Cannula 3.5 97.4 07/24/17 20:25 57 111/45 07/24/17 20:00 Nasal Cannula 3.5 07/24/17 19:20 97.9 57 21 111/45 (67) 98 Nasal Cannula 3.0 97.9 07/24/17 16:06 18 Room Air 07/24/17 15:12 97.8 66 18 122/51 (74) 100 Nasal Cannula 3.5 97.8 PHYSICAL EXAM Physical Exam lungs with bilateral rales heart RRR abd protrudent and bloated with presence of acsities ext + edema ASSESSMENT/PLAN Assessment/Plan 1- anasarca /CHF 2-ESRD does not want dialysis but everything else 3-DM II restart levemir at lower dose 4-HTN 5-hyperkalemia resolved 6-anemia of chronic disease Dr. Bethea will resume care in AM Problems: COMMENT Lab Laboratory Tests Test 07/24/17 16:26 07/24/17 20:50 07/25/17 05:40 07/25/17 07:59 Glucose (Fingerstick) 293 mg/dL (70-99) 158 mg/dL (70-99) 183 mg/dL (70-99) Sodium Level 132 mmol/L (136-145) Potassium Level 4.4 mmol/L (3.5-5.1) Chloride Level 94 mmol/L (98-107) Carbon Dioxide Level 33 mmol/L (21-32) Anion Gap 5 (6-14) Blood Urea Nitrogen 100 mg/dL (7-20) Creatinine 3.1 mg/dL (0.6-1.0) Estimated GFR (Cockcroft-Gault) 14.2 Glucose Level 216 mg/dL (70-99) Calcium Level 8.4 mg/dL (8.5-10.1) Magnesium Level 2.8 mg/dL (1.8-2.4) Test 07/25/17 11:54 Glucose (Fingerstick) 261 mg/dL (70-99) YOSHI MCKENNA MD Jul 25, 2017 12:48
[2017-07-25 15:00] VITALS: BP 103/72
[2017-07-25 19:00] VITALS: BP 116/47
[2017-07-25] MEDS: ATORVASTATIN CALCIUM 10 MG TABLET. PO SCH (20:31)
[2017-07-25] MEDS: INSULIN DETEMIR 300 UNITS/3 ML INSULN.PEN. SQ SCH (21:36)
[2017-07-25 23:00] VITALS: BP 122/50
[2017-07-26] MEDS: HYDROcodone/APAP 5/325MG 1 TAB TABLET PO PRN (01:10)
[2017-07-26 03:00] VITALS: BP 125/47
[2017-07-26] MEDS: PROCHLORPERAZINE 5 MG TABLET. PO SCH ×4 (05:18→23:36)
[2017-07-26] MEDS: FUROSEMIDE 40 MG/4 ML VIAL. IVP SCH ×4 (05:18→23:36)
[2017-07-26] MEDS: ALPRAZolam 0.25 MG TABLET PO PRN (05:33)
[2017-07-26 06:22] LABS: HEMATOCRIT 27.7 % (36.0-47.0); RED BLOOD COUNT 2.88 x10^6/uL (3.50-5.40); WHITE BLOOD COUNT 5.5 x10^3/uL (4.0-11.0)
[2017-07-26 06:41] LABS: ALBUMIN 2.6 g/dL (3.4-5.0); ALBUMIN/GLOBULIN RATIO 0.6 (1.0-1.7); CALCIUM 8.5 mg/dL (8.5-10.1); CREATININE 3.5 mg/dL (0.6-1.0); GFR 12.4; POTASSIUM 4.7 mmol/L (3.5-5.1); TOTAL BILIRUBIN 0.3 mg/dL (0.2-1.0); TOTAL PROTEIN 6.7 g/dL (6.4-8.2)
[2017-07-26 07:30] VITALS: BP 108/40
[2017-07-26] MEDS: INSULIN ASPART 300 UNITS/3 ML INSULN.PEN SQ SCH ×3 (08:00→17:32)
[2017-07-26] MEDS ORDERED: DEXTROSE ORAL GEL 15 GM TUBE. PO PRN (08:30)
[2017-07-26] MEDS: FERROUS SULFATE 325 MG TABLET. PO SCH (09:00)
[2017-07-26 10:30] VITALS: BP 151/47
--- NOTE | 2017-07-26 10:58 | PDOC ---
Renal-Progress Notes Subjective Notes Notes CONFUSED History of Present Illness Hx of present illness NO CHANGE Vitals Vitals Vital Signs Date Time Temp Pulse Resp B/P (MAP) Pulse Ox O2 Delivery O2 Flow Rate FiO2 07/26/17 07:30 97.0 59 16 108/40 (62) 100 Nasal Cannula 3.5 97.0 Weight Weight [ ] Labs Labs Laboratory Tests Test 07/25/17 11:54 07/25/17 16:47 07/25/17 21:17 07/26/17 05:30 Glucose (Fingerstick) 261 mg/dL (70-99) 228 mg/dL (70-99) 235 mg/dL (70-99) White Blood Count 5.5 x10^3/uL (4.0-11.0) Red Blood Count 2.88 x10^6/uL (3.50-5.40) Hemoglobin 9.0 g/dL (12.0-15.5) Hematocrit 27.7 % (36.0-47.0) Mean Corpuscular Volume 97 fL (79-100) Mean Corpuscular Hemoglobin 31 pg (25-35) Mean Corpuscular Hemoglobin Concent 32 g/dL (31-37) Red Cell Distribution Width 16.0 % (11.5-14.5) Platelet Count 294 x10^3/uL (140-400) Sodium Level 133 mmol/L (136-145) Potassium Level 4.7 mmol/L (3.5-5.1) Chloride Level 94 mmol/L (98-107) Carbon Dioxide Level 32 mmol/L (21-32) Anion Gap 7 (6-14) Blood Urea Nitrogen 109 mg/dL (7-20) Creatinine 3.5 mg/dL (0.6-1.0) Estimated GFR (Cockcroft-Gault) 12.4 BUN/Creatinine Ratio 31 (6-20) Glucose Level 80 mg/dL (70-99) Calcium Level 8.5 mg/dL (8.5-10.1) Total Bilirubin 0.3 mg/dL (0.2-1.0) Aspartate Amino Transf (AST/SGOT) 21 U/L (15-37) Alanine Aminotransferase (ALT/SGPT) 13 U/L (14-59) Alkaline Phosphatase 77 U/L (46-116) Total Protein 6.7 g/dL (6.4-8.2) Albumin 2.6 g/dL (3.4-5.0) Albumin/Globulin Ratio 0.6 (1.0-1.7) Test 07/26/17 07:26 07/26/17 07:44 07/26/17 08:16 07/26/17 08:41 Glucose (Fingerstick) 57 mg/dL (70-99) 42 mg/dL (70-99) 60 mg/dL (70-99) 76 mg/dL (70-99) Review of Systems Constitutional: yes: weakness, alert, oriented Ears/Nose/Throat: Yes: no symptom reported Eyes: Yes: no symptom reported Pulmonary: Yes dyspnea Cardiovascular: Yes no symptom reported, Yes edema Gastrointestional: Yes: constipation Genitourinary: Yes: incontinence Musculoskeletal: Yes: muscle stiffness Skin: Yes no symptom reported Physical Exam General Appearance: no apparent distress Skin: warm Respiratory: decreased breath sounds Heart: S1S2, RRR Abdomen: soft, N/T Extremities: pulses present, edema Neurology: alert Assessment Assessment IMP CONFUSED-UREMIA ANASARCA ANEMIA ESRD-PROGRESSIVE WORSENING OF HER RENAL LABS DM II HTN HYPERKALEMIA-RESOLVED PLAN CONT LASIX SUPPORTIVE CARE POOR PROGNOSIS NO DIALYSIS PALLIATIVE CARE MOST APPROPRIATE FOR HER SHE HAS REFUSED DIALYSIS FINA ESPINOZA MD Jul 26, 2017 10:58
[2017-07-26] MEDS: ASPIRIN ENTERIC COATED 81 MG TABLET.DR. PO SCH (11:52)
[2017-07-26] MEDS: metOLazone 2.5 MG TABLET PO SCH (11:52)
[2017-07-26] MEDS: LEVOTHYROXINE 150 MCG TABLET PO SCH (11:52)
[2017-07-26] MEDS: PANTOPRAZOLE 40 MG TABLET.DR. PO SCH (11:53)
[2017-07-26] MEDS: METOPROLOL TART IMMED RELEASE 50 MG TABLET. PO SCH ×2 (11:53→21:18)
[2017-07-26] MEDS: POLYETHYLENE GLYCOL 3350 17 GM PACKET. PO SCH (11:54)
[2017-07-26] MEDS: CYANOCOBALAMIN (VITAMIN B-12) 1,000 MCG TABLET. PO SCH (11:55)
[2017-07-26 14:45] VITALS: BP 145/52
--- NOTE | 2017-07-26 17:29 | PDOC ---
PROGRESS NOTES Subjective Subjective Patient confused. When the gang saw operator saw her earlier she did not want dialysis Objective Objective Vital Signs Date Time Temp Pulse Resp B/P (MAP) Pulse Ox O2 Delivery O2 Flow Rate FiO2 07/26/17 14:45 97.9 65 20 145/52 (83) 100 Nasal Cannula 3.5 97.9 Intake and Output 07/27/17 07:00 Output Total 600 ml Balance -600 ml Output Urine Total 600 ml # Voids 2 Physical Exam Physical Exam Moving air better. Heart no changes. Extremities less edema. Assessment Assessment The patient's renal situation is getting worse. If she does not want dialysis I agree that she just needs to be evaluated by palliative care with comfort measures. Problems Medical Problems: (1) Anemia Status: Acute (2) Chronic kidney disease Status: Acute (3) Congestive heart failure Status: Acute (4) Hyperkalemia Status: Acute Comment Review of Relevant I have reviewed the following items jong (where applicable) has been applied. Labs Laboratory Tests Test 07/24/17 20:50 07/25/17 05:40 07/25/17 07:59 07/25/17 11:54 Glucose (Fingerstick) 158 mg/dL (70-99) 183 mg/dL (70-99) 261 mg/dL (70-99) Sodium Level 132 mmol/L (136-145) Potassium Level 4.4 mmol/L (3.5-5.1) Chloride Level 94 mmol/L (98-107) Carbon Dioxide Level 33 mmol/L (21-32) Anion Gap 5 (6-14) Blood Urea Nitrogen 100 mg/dL (7-20) Creatinine 3.1 mg/dL (0.6-1.0) Estimated GFR (Cockcroft-Gault) 14.2 Glucose Level 216 mg/dL (70-99) Calcium Level 8.4 mg/dL (8.5-10.1) Magnesium Level 2.8 mg/dL (1.8-2.4) Test 07/25/17 16:47 07/25/17 21:17 07/26/17 05:30 07/26/17 07:26 Glucose (Fingerstick) 228 mg/dL (70-99) 235 mg/dL (70-99) 57 mg/dL (70-99) White Blood Count 5.5 x10^3/uL (4.0-11.0) Red Blood Count 2.88 x10^6/uL (3.50-5.40) Hemoglobin 9.0 g/dL (12.0-15.5) Hematocrit 27.7 % (36.0-47.0) Mean Corpuscular Volume 97 fL (79-100) Mean Corpuscular Hemoglobin 31 pg (25-35) Mean Corpuscular Hemoglobin Concent 32 g/dL (31-37) Red Cell Distribution Width 16.0 % (11.5-14.5) Platelet Count 294 x10^3/uL (140-400) Sodium Level 133 mmol/L (136-145) Potassium Level 4.7 mmol/L (3.5-5.1) Chloride Level 94 mmol/L (98-107) Carbon Dioxide Level 32 mmol/L (21-32) Anion Gap 7 (6-14) Blood Urea Nitrogen 109 mg/dL (7-20) Creatinine 3.5 mg/dL (0.6-1.0) Estimated GFR (Cockcroft-Gault) 12.4 BUN/Creatinine Ratio 31 (6-20) Glucose Level 80 mg/dL (70-99) Calcium Level 8.5 mg/dL (8.5-10.1) Total Bilirubin 0.3 mg/dL (0.2-1.0) Aspartate Amino Transf (AST/SGOT) 21 U/L (15-37) Alanine Aminotransferase (ALT/SGPT) 13 U/L (14-59) Alkaline Phosphatase 77 U/L (46-116) Total Protein 6.7 g/dL (6.4-8.2) Albumin 2.6 g/dL (3.4-5.0) Albumin/Globulin Ratio 0.6 (1.0-1.7) Test 07/26/17 07:44 07/26/17 08:16 07/26/17 08:41 07/26/17 11:42 Glucose (Fingerstick) 42 mg/dL (70-99) 60 mg/dL (70-99) 76 mg/dL (70-99) 193 mg/dL (70-99) Test 07/26/17 16:36 Glucose (Fingerstick) 349 mg/dL (70-99) Laboratory Tests Test 07/25/17 21:17 07/26/17 05:30 07/26/17 07:26 07/26/17 07:44 Glucose (Fingerstick) 235 mg/dL (70-99) 57 mg/dL (70-99) 42 mg/dL (70-99) White Blood Count 5.5 x10^3/uL (4.0-11.0) Red Blood Count 2.88 x10^6/uL (3.50-5.40) Hemoglobin 9.0 g/dL (12.0-15.5) Hematocrit 27.7 % (36.0-47.0) Mean Corpuscular Volume 97 fL (79-100) Mean Corpuscular Hemoglobin 31 pg (25-35) Mean Corpuscular Hemoglobin Concent 32 g/dL (31-37) Red Cell Distribution Width 16.0 % (11.5-14.5) Platelet Count 294 x10^3/uL (140-400) Sodium Level 133 mmol/L (136-145) Potassium Level 4.7 mmol/L (3.5-5.1) Chloride Level 94 mmol/L (98-107) Carbon Dioxide Level 32 mmol/L (21-32) Anion Gap 7 (6-14) Blood Urea Nitrogen 109 mg/dL (7-20) Creatinine 3.5 mg/dL (0.6-1.0) Estimated GFR (Cockcroft-Gault) 12.4 BUN/Creatinine Ratio 31 (6-20) Glucose Level 80 mg/dL (70-99) Calcium Level 8.5 mg/dL (8.5-10.1) Total Bilirubin 0.3 mg/dL (0.2-1.0) Aspartate Amino Transf (AST/SGOT) 21 U/L (15-37) Alanine Aminotransferase (ALT/SGPT) 13 U/L (14-59) Alkaline Phosphatase 77 U/L (46-116) Total Protein 6.7 g/dL (6.4-8.2) Albumin 2.6 g/dL (3.4-5.0) Albumin/Globulin Ratio 0.6 (1.0-1.7) Test 07/26/17 08:16 07/26/17 08:41 07/26/17 11:42 07/26/17 16:36 Glucose (Fingerstick) 60 mg/dL (70-99) 76 mg/dL (70-99) 193 mg/dL (70-99) 349 mg/dL (70-99) Medications Current Medications Furosemide (Lasix) 40 mg 1X ONCE IVP Last administered on 07/23/17 06:04; Start 07/23/17 at 05:30; Stop 07/23/17 at 05:31; Status DC Ondansetron HCl (Zofran) 4 mg PRN Q8HRS PRN IV NAUSEA/VOMITING; Start 07/23/17 at 05:00; Stop 07/23/17 at 09:33; Status DC Morphine Sulfate 2 mg PRN Q2HR PRN IV SEVERE PAIN; Start 07/23/17 at 05:00; Stop 07/24/17 at 04:59; Status DC Acetaminophen (Tylenol) 650 mg PRN Q4HRS PRN PO FEVER; Start 07/23/17 at 05:00 ; Stop 07/24/17 at 04:59; Status Cancel Acetaminophen (Tylenol) 325 mg PRN Q4HRS PO ; Start 07/23/17 at 08:45; Stop at 13:18; Status DC Acetaminophen (Tylenol) 500 mg PRN Q4HRS PO ; Start 07/23/17 at 08:45; Stop at 13:18; Status DC Aspirin (Ecotrin) 81 mg DAILY PO Last administered on 07/26/17 11:52; Start at 09:00 Cyanocobalamin (Vitamin B-12) 1,000 mcg DAILY PO Last administered on 11:55; Start 07/23/17 at 09:00 Ferrous Sulfate (Feosol) 65 mg DAILY PO Last administered on 07/25/17 08:29; Start 07/23/17 at 09:00 Furosemide (Lasix) 40 mg DAILY PO ; Start 07/23/17 at 09:00; Stop 07/23/17 at 12 :16; Status DC Levothyroxine Sodium (Synthroid) 150 mcg DAILY PO Last administered on 11:52; Start 07/23/17 at 09:00 Pantoprazole Sodium (Protonix) 40 mg DAILY PO Last administered on 07/26/17 11 :53; Start 07/23/17 at 09:00 Polyethylene Glycol (miraLAX PACKET) 17 gm DAILY PO Last administered on 11:54; Start 07/23/17 at 09:30 Prochlorperazine Maleate (Compazine) 10 mg Q6HRS PO Last administered on 05:18; Start 07/23/17 at 12:00 Losartan Potassium (Cozaar) 50 mg DAILY PO Last administered on 07/23/17 09:41 ; Start 07/23/17 at 09:00; Stop 07/23/17 at 12:16; Status DC Atorvastatin Calcium (Lipitor) 10 mg QHS PO Last administered on 07/25/17 20: 31; Start 07/23/17 at 21:00 Metoprolol Tartrate (Lopressor) 50 mg BID PO Last administered on 07/26/17 11: 53; Start 07/23/17 at 10:00 Ondansetron HCl (Zofran Odt) 4 mg PRN Q6HRS PRN PO NAUSEA/VOMITING; Start 07/23 at 09:15 Insulin Aspart (NovoLOG) 0-5 UNITS TIDWMEALS SQ Last administered on 07/25/17 17:39; Start 07/23/17 at 12:00 Dextrose (Dextrose 50%-Water Syringe) 12.5 gm PRN Q15MIN PRN IV SEE COMMENTS Last administered on 07/26/17 07:49; Start 07/23/17 at 09:15 Alprazolam (Xanax) 0.25 mg TID PRN PRN PO ANXIETY / AGITATION Last administered on 07/26/17 05:33; Start 07/23/17 at 10:00 Darbepoetin Toño (Aranesp) 60 mcg Fr SQ Last administered on 07/23/17 20:37; Start 07/23/17 at 21:00 Furosemide (Lasix) 40 mg BID92 IVP Last administered on 07/24/17 09:01; Start 07/23/17 at 14:00; Stop 07/24/17 at 11:33; Status DC Acetaminophen/ Hydrocodone Bitart (Lortab 5/325) 1 tab PRN Q4HRS PRN PO PAIN; Start 07/23/17 at 15:30 Acetaminophen/ Hydrocodone Bitart (Lortab 5/325) 2 tab PRN Q4HRS PRN PO PAIN Last administered on 07/26/17 01:10; Start 07/23/17 at 15:30 Bisacodyl (Dulcolax Supp) 10 mg PRN DAILY PRN [place] CONSTIPATION; Start 07/23/17 at 16:15 Sodium Polystyrene Sulfonate (Kayexalate) 30 gm 1X ONCE PO Last administered on 07/24/17 09:01; Start 07/24/17 at 08:00; Stop 07/24/17 at 08:01; Status DC Furosemide (Lasix) 40 mg Q6HRS IVP Last administered on 07/26/17 11:55; Start 07/24/17 at 12:00 Metolazone (Zaroxolyn) 2.5 mg DAILY PO Last administered on 07/26/17 11:52; Start 07/24/17 at 12:00 Acetaminophen (Tylenol) 500 mg PRN Q4HRS PRN PO PAIN; Start 07/24/17 at 13:30 Acetaminophen (Tylenol) 325 mg PRN Q4HRS PRN PO PAIN; Start 07/24/17 at 13:30 Insulin Detemir (Levemir) 7 units QHS SQ Last administered on 07/25/17 21:36; Start 07/25/17 at 21:00 Glucose (Insta-Glucose) 15 gm PRN Q15MIN PRN PO LOW BLOOD SUGAR; Start at 08:30 Active Scripts Active Reported Aspir 81 (Aspirin) 81 Mg Tablet. 1 Tab PO DAILY Cortizone 10 (Hydrocortisone) 28 Gm Gel..gram. 28 Gm TP Tylenol (Acetaminophen) 325 Mg Tablet 500 Mg PO Tylenol (Acetaminophen) 325 Mg Tablet 325 Mg PO Miralax (Polyethylene Glycol 3350) 17 Gm Powd.pack 1 Pkt PO PRN Levothyroxine Sodium 150 Mcg Tablet 1 Tab PO DAILY Ferrous Sulfate 325 Mg Tablet 65 Mg PO DAILY B-12 (Cyanocobalamin (Vitamin B-12)) 1,000 Mcg Tablet 1,000 Mcg PO DAILY Bystolic (Nebivolol) 10 Mg Tablet 10 Mg PO DAILY Furosemide 40 Mg Tablet 1 Tab PO DAILY Prochlorperazine Maleate 10 Mg Tablet 1 Tab PO Q6HRS Ondansetron Hcl 4 Mg Tablet 1 Tab PO PRN Q6HRS Pantoprazole Sodium 40 Mg Tablet. 1 Tab PO DAILY Losartan Potassium 100 Mg Tablet 100 Mg PO DAILY Glimepiride 4 Mg Tablet 4 Mg PO DAILY Janumet Xr 50-1,000 Mg Tablet (Sitagliptin Phos/Metformin Hcl) 1 Each Tbmp.24hr 1 Tab PO BID Mevacor (Lovastatin) 40 Mg Tablet 40 Mg PO DAILY Vitals/I & O Vital Sign - Last 24 Hours 07/25/17 07/25/17 07/25/17 07/25/17 17:41 19:00 20:00 20:32 Temp 97.6 97.6 Pulse 57 57 Resp 18 17 B/P (MAP) 116/47 (70) 103/72 Pulse Ox 94 98 O2 Delivery Nasal Cannula Nasal Cannula Nasal Cannula O2 Flow Rate 3.5 3.5 3.5 07/25/17 07/26/17 07/26/17 07/26/17 23:00 01:10 02:10 03:00 Temp 97.8 97.8 97.8 97.8 Pulse 61 63 Resp 16 20 20 16 B/P (MAP) 122/50 (74) 125/47 (73) Pulse Ox 97 95 96 96 O2 Delivery Nasal Cannula Nasal Cannula Nasal Cannula Nasal Cannula O2 Flow Rate 3.5 3.5 3.5 3.5 07/26/17 07/26/17 07/26/17 07/26/17 07:30 08:30 10:30 11:53 Temp 97.0 97.6 97.0 97.6 Pulse 59 58 58 Resp 16 20 B/P (MAP) 108/40 (62) 151/47 (81) 151/47 Pulse Ox 100 98 O2 Delivery Nasal Cannula Nasal Cannula Nasal Cannula O2 Flow Rate 3.5 3.5 3.5 07/26/17 14:45 Temp 97.9 97.9 Pulse 65 Resp 20 B/P (MAP) 145/52 (83) Pulse Ox 100 O2 Delivery Nasal Cannula O2 Flow Rate 3.5 Intake and Output 07/26/17 07/26/17 07/27/17 15:00 23:00 07:00 Output Total 600 ml Balance -600 ml ROB ARSHAD MD Jul 26, 2017 17:29
[2017-07-26 19:20] VITALS: BP 115/89
--- NOTE | 2017-07-26 20:57 | PDOC ---
GENERAL General: vss and afebrile. somnolent when I saw this am but hypoglycemic at same time, had gotten a benzodiazepine 30 minutes earlier, and has BUN of 109 and creatinine of 3.5. O>I and weight decreased 4 lbs and has less swelling. patient has vasillated on dialysis decision over the last few months. chest decent breath sounds and heart regular and abdomen benign. help consultants appreciated. may need to back off on diuresis and will discuss overall situation with her children to plan therapy. Problems: VITAL SIGNS Vital Signs: Vital Signs Date Time Temp Pulse Resp B/P (MAP) Pulse Ox O2 Delivery O2 Flow Rate FiO2 07/26/17 19:20 98.1 68 20 115/89 (98) 99 Nasal Cannula 3.5 98.1 I & O I & O Intake and Output 07/27/17 07:00 Intake Total 300 ml Output Total 600 ml Balance -300 ml Intake Oral 300 ml Output Urine Total 600 ml # Voids 5 ALLERGIES Allergies: Allergies Coded Allergies Type Severity Reaction Last Updated Verified I S O L A T I O N *CONTACT* Allergy Unknown 07/26/17 Yes No Known Medication Allergies Allergy Unknown 07/26/17 Yes MEDS Medications: Current Medications Medications (Trade) Dose Ordered Sig/Silvano Start Time Stop Time Status Last Admin Dose Admin Acetaminophen (Tylenol) 325 mg PRN Q4HRS PRN 07/24/17 13:30 Acetaminophen/ Hydrocodone Bitart (Lortab 5/325) 2 tab PRN Q4HRS PRN 07/23/17 15:30 07/26/17 01:10 2 TAB Alprazolam (Xanax) 0.25 mg TID PRN PRN 07/23/17 10:00 07/26/17 05:33 0.25 MG Aspirin (Ecotrin) 81 mg DAILY 07/23/17 09:00 07/26/17 11:52 81 MG Atorvastatin Calcium (Lipitor) 10 mg QHS 07/23/17 21:00 07/25/17 20:31 10 MG Bisacodyl (Dulcolax Supp) 10 mg PRN DAILY PRN 07/23/17 16:15 Cyanocobalamin (Vitamin B-12) 1,000 mcg DAILY 07/23/17 09:00 07/26/17 11:55 1,000 MCG Darbepoetin Toño (Aranesp) 60 mcg Fr 07/23/17 21:00 07/23/17 20:37 60 MCG Dextrose (Dextrose 50%-Water Syringe) 12.5 gm PRN Q15MIN PRN 07/23/17 09:15 07/26/17 07:49 12.5 GM Ferrous Sulfate (Feosol) 65 mg DAILY 07/23/17 09:00 07/25/17 08:29 65 MG Furosemide (Lasix) 40 mg Q6HRS 07/24/17 12:00 07/26/17 17:27 40 MG Glucose (Insta-Glucose) 15 gm PRN Q15MIN PRN 07/26/17 08:30 Insulin Aspart (NovoLOG) 0-5 UNITS TIDWMEALS 07/23/17 12:00 07/26/17 17:32 5 UNITS Insulin Detemir (Levemir) 7 units QHS 07/25/17 21:00 07/25/17 21:36 7 UNITS Levothyroxine Sodium (Synthroid) 150 mcg DAILY 07/23/17 09:00 07/26/17 11:52 150 MCG Losartan Potassium (Cozaar) 50 mg DAILY 07/23/17 09:00 07/23/17 12:16 DC 07/23/17 09:41 50 MG Metolazone (Zaroxolyn) 2.5 mg DAILY 07/24/17 12:00 07/26/17 11:52 2.5 MG Metoprolol Tartrate (Lopressor) 50 mg BID 07/23/17 10:00 07/26/17 11:53 50 MG Morphine Sulfate 2 mg PRN Q2HR PRN 07/23/17 05:00 07/24/17 04:59 DC Ondansetron HCl (Zofran Odt) 4 mg PRN Q6HRS PRN 07/23/17 09:15 Ondansetron HCl (Zofran) 4 mg PRN Q8HRS PRN 07/23/17 05:00 07/23/17 09:33 DC Pantoprazole Sodium (Protonix) 40 mg DAILY 07/23/17 09:00 07/26/17 11:53 40 MG Polyethylene Glycol (miraLAX PACKET) 17 gm DAILY 07/23/17 09:30 07/26/17 11:54 17 GM Prochlorperazine Maleate (Compazine) 10 mg Q6HRS 07/23/17 12:00 07/26/17 17:28 10 MG Sodium Polystyrene Sulfonate (Kayexalate) 30 gm 1X ONCE 07/24/17 08:00 07/24/17 08:01 DC 07/24/17 09:01 30 GM LAB Lab: Laboratory Tests Test 07/25/17 21:17 07/26/17 05:30 07/26/17 07:26 07/26/17 07:44 Glucose (Fingerstick) 235 mg/dL (70-99) 57 mg/dL (70-99) 42 mg/dL (70-99) White Blood Count 5.5 x10^3/uL (4.0-11.0) Red Blood Count 2.88 x10^6/uL (3.50-5.40) Hemoglobin 9.0 g/dL (12.0-15.5) Hematocrit 27.7 % (36.0-47.0) Mean Corpuscular Volume 97 fL (79-100) Mean Corpuscular Hemoglobin 31 pg (25-35) Mean Corpuscular Hemoglobin Concent 32 g/dL (31-37) Red Cell Distribution Width 16.0 % (11.5-14.5) Platelet Count 294 x10^3/uL (140-400) Sodium Level 133 mmol/L (136-145) Potassium Level 4.7 mmol/L (3.5-5.1) Chloride Level 94 mmol/L (98-107) Carbon Dioxide Level 32 mmol/L (21-32) Anion Gap 7 (6-14) Blood Urea Nitrogen 109 mg/dL (7-20) Creatinine 3.5 mg/dL (0.6-1.0) Estimated GFR (Cockcroft-Gault) 12.4 BUN/Creatinine Ratio 31 (6-20) Glucose Level 80 mg/dL (70-99) Calcium Level 8.5 mg/dL (8.5-10.1) Total Bilirubin 0.3 mg/dL (0.2-1.0) Aspartate Amino Transf (AST/SGOT) 21 U/L (15-37) Alanine Aminotransferase (ALT/SGPT) 13 U/L (14-59) Alkaline Phosphatase 77 U/L (46-116) Total Protein 6.7 g/dL (6.4-8.2) Albumin 2.6 g/dL (3.4-5.0) Albumin/Globulin Ratio 0.6 (1.0-1.7) Test 07/26/17 08:16 07/26/17 08:41 07/26/17 11:42 07/26/17 16:36 Glucose (Fingerstick) 60 mg/dL (70-99) 76 mg/dL (70-99) 193 mg/dL (70-99) 349 mg/dL (70-99) APPLJESSICA MD Jul 26, 2017 20:57
[2017-07-26] MEDS: ATORVASTATIN CALCIUM 10 MG TABLET. PO SCH (21:18)
[2017-07-26] MEDS: INSULIN DETEMIR 300 UNITS/3 ML INSULN.PEN. SQ SCH (21:23)
[2017-07-26 23:15] VITALS: BP 119/50
[2017-07-27 03:00] VITALS: BP 122/49
[2017-07-27] MEDS: FUROSEMIDE 40 MG/4 ML VIAL. IVP SCH (05:30)
[2017-07-27] MEDS: PROCHLORPERAZINE 5 MG TABLET. PO SCH ×3 (05:30→17:49)
[2017-07-27] MEDS: HYDROcodone/APAP 5/325MG 1 TAB TABLET PO PRN ×2 (06:46→13:34)
[2017-07-27 07:00] VITALS: BP 143/65
[2017-07-27] MEDS: INSULIN ASPART 300 UNITS/3 ML INSULN.PEN SQ SCH ×3 (08:00→17:54)
[2017-07-27] MEDS: ASPIRIN ENTERIC COATED 81 MG TABLET.DR. PO SCH (09:50)
[2017-07-27] MEDS: metOLazone 2.5 MG TABLET PO SCH (09:51)
[2017-07-27] MEDS: LEVOTHYROXINE 150 MCG TABLET PO SCH (09:51)
[2017-07-27] MEDS: METOPROLOL TART IMMED RELEASE 50 MG TABLET. PO SCH ×2 (09:51→21:03)
[2017-07-27] MEDS: PANTOPRAZOLE 40 MG TABLET.DR. PO SCH (09:51)
[2017-07-27] MEDS: FERROUS SULFATE 325 MG TABLET. PO SCH (09:51)
[2017-07-27] MEDS: POLYETHYLENE GLYCOL 3350 17 GM PACKET. PO SCH (09:52)
[2017-07-27] MEDS: CYANOCOBALAMIN (VITAMIN B-12) 1,000 MCG TABLET. PO SCH (09:52)
[2017-07-27 10:45] LABS: BASO % 0 % (0-3); EOS % 1 % (0-3); HEMATOCRIT 26.7 % (36.0-47.0); HEMOGLOBIN 8.6 g/dL (12.0-15.5); LYMPH # 0.6 x10^3/uL (1.0-4.8); LYMPH % 9 % (24-48); MEAN CORPUSCULAR HEMOGLOBIN 31 pg (25-35); MEAN CORPUSCULAR HGB CONC 32 g/dL (31-37); MEAN CORPUSCULAR VOLUME 95 fL (79-100); MONO % 8 % (0-9); NEUT % 82 % (31-73); PLATELET COUNT 396 x10^3/uL (140-400); RED BLOOD COUNT 2.82 x10^6/uL (3.50-5.40); RED CELL DISTRIBUTION WIDTH 15.5 % (11.5-14.5); WHITE BLOOD COUNT 6.4 x10^3/uL (4.0-11.0)
[2017-07-27 11:00] VITALS: BP 150/58
[2017-07-27 11:08] LABS: ALBUMIN 2.5 g/dL (3.4-5.0); ALBUMIN/GLOBULIN RATIO 0.6 (1.0-1.7); CALCIUM 8.2 mg/dL (8.5-10.1); CREATININE 3.7 mg/dL (0.6-1.0); GFR 11.6; POTASSIUM 4.7 mmol/L (3.5-5.1); TOTAL BILIRUBIN 0.3 mg/dL (0.2-1.0); TOTAL PROTEIN 6.7 g/dL (6.4-8.2)
--- NOTE | 2017-07-27 11:36 | PDOC ---
Renal-Progress Notes Subjective Notes Notes CONFUSED History of Present Illness Hx of present illness NO CHANGES Vitals Vitals Vital Signs Date Time Temp Pulse Resp B/P (MAP) Pulse Ox O2 Delivery O2 Flow Rate FiO2 07/27/17 11:00 97.6 63 18 150/58 (88) 97 Nasal Cannula 3.5 97.6 Weight Weight [ ] I.O. Intake and Output Intake and Output 07/28/17 07:00 Intake Total 25 ml Balance 25 ml Intake Oral 25 ml Labs Labs Laboratory Tests Test 07/26/17 11:42 07/26/17 16:36 07/26/17 21:01 07/27/17 05:41 Glucose (Fingerstick) 193 mg/dL (70-99) 349 mg/dL (70-99) 232 mg/dL (70-99) 42 mg/dL (70-99) Test 07/27/17 05:53 07/27/17 06:10 07/27/17 06:29 07/27/17 07:30 Glucose (Fingerstick) 54 mg/dL (70-99) 90 mg/dL (70-99) 97 mg/dL (70-99) 124 mg/dL (70-99) Test 07/27/17 10:24 07/27/17 10:35 Glucose (Fingerstick) 201 mg/dL (70-99) White Blood Count 6.4 x10^3/uL (4.0-11.0) Red Blood Count 2.82 x10^6/uL (3.50-5.40) Hemoglobin 8.6 g/dL (12.0-15.5) Hematocrit 26.7 % (36.0-47.0) Mean Corpuscular Volume 95 fL (79-100) Mean Corpuscular Hemoglobin 31 pg (25-35) Mean Corpuscular Hemoglobin Concent 32 g/dL (31-37) Red Cell Distribution Width 15.5 % (11.5-14.5) Platelet Count 396 x10^3/uL (140-400) Neutrophils (%) (Auto) 82 % (31-73) Lymphocytes (%) (Auto) 9 % (24-48) Monocytes (%) (Auto) 8 % (0-9) Eosinophils (%) (Auto) 1 % (0-3) Basophils (%) (Auto) 0 % (0-3) Neutrophils # (Auto) 5.3 x10^3uL (1.8-7.7) Lymphocytes # (Auto) 0.6 x10^3/uL (1.0-4.8) Monocytes # (Auto) 0.5 x10^3/uL (0.0-1.1) Eosinophils # (Auto) 0.0 x10^3/uL (0.0-0.7) Basophils # (Auto) 0.0 x10^3/uL (0.0-0.2) Sodium Level 133 mmol/L (136-145) Potassium Level 4.7 mmol/L (3.5-5.1) Chloride Level 91 mmol/L (98-107) Carbon Dioxide Level 35 mmol/L (21-32) Anion Gap 7 (6-14) Blood Urea Nitrogen 118 mg/dL (7-20) Creatinine 3.7 mg/dL (0.6-1.0) Estimated GFR (Cockcroft-Gault) 11.6 BUN/Creatinine Ratio 32 (6-20) Glucose Level 201 mg/dL (70-99) Calcium Level 8.2 mg/dL (8.5-10.1) Total Bilirubin 0.3 mg/dL (0.2-1.0) Aspartate Amino Transf (AST/SGOT) 21 U/L (15-37) Alanine Aminotransferase (ALT/SGPT) 14 U/L (14-59) Alkaline Phosphatase 89 U/L (46-116) Total Protein 6.7 g/dL (6.4-8.2) Albumin 2.5 g/dL (3.4-5.0) Albumin/Globulin Ratio 0.6 (1.0-1.7) Review of Systems Constitutional: yes: other (CONFUSED) Physical Exam General Appearance: no apparent distress Skin: warm Respiratory: decreased breath sounds Heart: S1S2, RRR Abdomen: soft, N/T Extremities: pulses present, edema Assessment Assessment IMP CONFUSED-UREMIA ANASARCA ANEMIA ESRD-PROGRESSIVE 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
[2017-07-27] MEDS ORDERED: FUROSEMIDE 80 MG TABLET. PO SCH (14:00)
[2017-07-27 14:44] VITALS: BP 140/54
--- NOTE | 2017-07-27 18:09 | PDOC ---
PROGRESS NOTES Subjective Subjective Patient had no cardiac concerns. Questions about dialysis. Objective Objective Vital Signs Date Time Temp Pulse Resp B/P (MAP) Pulse Ox O2 Delivery O2 Flow Rate FiO2 07/27/17 14:44 98.3 65 18 140/54 (82) 97 Nasal Cannula 3.5 98.3 Intake and Output 07/28/17 07:00 Intake Total 1175 ml Balance 1175 ml Intake Oral 1175 ml # Voids 3 # Bowel Movements 1 Physical Exam Physical Exam No significant changes in cardiac exam Assessment Assessment Patient's renal condition is deteriorating. If she is not wanting to have dialysis I would then suggest hospice care at home. Problems Medical Problems: (1) Anemia Status: Acute (2) Chronic kidney disease Status: Acute (3) Congestive heart failure Status: Acute (4) Hyperkalemia Status: Acute Comment Review of Relevant I have reviewed the following items jong (where applicable) has been applied. Labs Laboratory Tests Test 07/25/17 21:17 07/26/17 05:30 07/26/17 07:26 07/26/17 07:44 Glucose (Fingerstick) 235 mg/dL (70-99) 57 mg/dL (70-99) 42 mg/dL (70-99) White Blood Count 5.5 x10^3/uL (4.0-11.0) Red Blood Count 2.88 x10^6/uL (3.50-5.40) Hemoglobin 9.0 g/dL (12.0-15.5) Hematocrit 27.7 % (36.0-47.0) Mean Corpuscular Volume 97 fL (79-100) Mean Corpuscular Hemoglobin 31 pg (25-35) Mean Corpuscular Hemoglobin Concent 32 g/dL (31-37) Red Cell Distribution Width 16.0 % (11.5-14.5) Platelet Count 294 x10^3/uL (140-400) Sodium Level 133 mmol/L (136-145) Potassium Level 4.7 mmol/L (3.5-5.1) Chloride Level 94 mmol/L (98-107) Carbon Dioxide Level 32 mmol/L (21-32) Anion Gap 7 (6-14) Blood Urea Nitrogen 109 mg/dL (7-20) Creatinine 3.5 mg/dL (0.6-1.0) Estimated GFR (Cockcroft-Gault) 12.4 BUN/Creatinine Ratio 31 (6-20) Glucose Level 80 mg/dL (70-99) Calcium Level 8.5 mg/dL (8.5-10.1) Total Bilirubin 0.3 mg/dL (0.2-1.0) Aspartate Amino Transf (AST/SGOT) 21 U/L (15-37) Alanine Aminotransferase (ALT/SGPT) 13 U/L (14-59) Alkaline Phosphatase 77 U/L (46-116) Total Protein 6.7 g/dL (6.4-8.2) Albumin 2.6 g/dL (3.4-5.0) Albumin/Globulin Ratio 0.6 (1.0-1.7) Test 07/26/17 08:16 07/26/17 08:41 07/26/17 11:42 07/26/17 16:36 Glucose (Fingerstick) 60 mg/dL (70-99) 76 mg/dL (70-99) 193 mg/dL (70-99) 349 mg/dL (70-99) Test 07/26/17 21:01 07/27/17 05:41 07/27/17 05:53 07/27/17 06:10 Glucose (Fingerstick) 232 mg/dL (70-99) 42 mg/dL (70-99) 54 mg/dL (70-99) 90 mg/dL (70-99) Test 07/27/17 06:29 07/27/17 07:30 07/27/17 10:24 07/27/17 10:35 Glucose (Fingerstick) 97 mg/dL (70-99) 124 mg/dL (70-99) 201 mg/dL (70-99) White Blood Count 6.4 x10^3/uL (4.0-11.0) Red Blood Count 2.82 x10^6/uL (3.50-5.40) Hemoglobin 8.6 g/dL (12.0-15.5) Hematocrit 26.7 % (36.0-47.0) Mean Corpuscular Volume 95 fL (79-100) Mean Corpuscular Hemoglobin 31 pg (25-35) Mean Corpuscular Hemoglobin Concent 32 g/dL (31-37) Red Cell Distribution Width 15.5 % (11.5-14.5) Platelet Count 396 x10^3/uL (140-400) Neutrophils (%) (Auto) 82 % (31-73) Lymphocytes (%) (Auto) 9 % (24-48) Monocytes (%) (Auto) 8 % (0-9) Eosinophils (%) (Auto) 1 % (0-3) Basophils (%) (Auto) 0 % (0-3) Neutrophils # (Auto) 5.3 x10^3uL (1.8-7.7) Lymphocytes # (Auto) 0.6 x10^3/uL (1.0-4.8) Monocytes # (Auto) 0.5 x10^3/uL (0.0-1.1) Eosinophils # (Auto) 0.0 x10^3/uL (0.0-0.7) Basophils # (Auto) 0.0 x10^3/uL (0.0-0.2) Sodium Level 133 mmol/L (136-145) Potassium Level 4.7 mmol/L (3.5-5.1) Chloride Level 91 mmol/L (98-107) Carbon Dioxide Level 35 mmol/L (21-32) Anion Gap 7 (6-14) Blood Urea Nitrogen 118 mg/dL (7-20) Creatinine 3.7 mg/dL (0.6-1.0) Estimated GFR (Cockcroft-Gault) 11.6 BUN/Creatinine Ratio 32 (6-20) Glucose Level 201 mg/dL (70-99) Calcium Level 8.2 mg/dL (8.5-10.1) Total Bilirubin 0.3 mg/dL (0.2-1.0) Aspartate Amino Transf (AST/SGOT) 21 U/L (15-37) Alanine Aminotransferase (ALT/SGPT) 14 U/L (14-59) Alkaline Phosphatase 89 U/L (46-116) Total Protein 6.7 g/dL (6.4-8.2) Albumin 2.5 g/dL (3.4-5.0) Albumin/Globulin Ratio 0.6 (1.0-1.7) Test 07/27/17 16:17 Glucose (Fingerstick) 369 mg/dL (70-99) Laboratory Tests Test 07/26/17 21:01 07/27/17 05:41 07/27/17 05:53 07/27/17 06:10 Glucose (Fingerstick) 232 mg/dL (70-99) 42 mg/dL (70-99) 54 mg/dL (70-99) 90 mg/dL (70-99) Test 07/27/17 06:29 07/27/17 07:30 07/27/17 10:24 07/27/17 10:35 Glucose (Fingerstick) 97 mg/dL (70-99) 124 mg/dL (70-99) 201 mg/dL (70-99) White Blood Count 6.4 x10^3/uL (4.0-11.0) Red Blood Count 2.82 x10^6/uL (3.50-5.40) Hemoglobin 8.6 g/dL (12.0-15.5) Hematocrit 26.7 % (36.0-47.0) Mean Corpuscular Volume 95 fL (79-100) Mean Corpuscular Hemoglobin 31 pg (25-35) Mean Corpuscular Hemoglobin Concent 32 g/dL (31-37) Red Cell Distribution Width 15.5 % (11.5-14.5) Platelet Count 396 x10^3/uL (140-400) Neutrophils (%) (Auto) 82 % (31-73) Lymphocytes (%) (Auto) 9 % (24-48) Monocytes (%) (Auto) 8 % (0-9) Eosinophils (%) (Auto) 1 % (0-3) Basophils (%) (Auto) 0 % (0-3) Neutrophils # (Auto) 5.3 x10^3uL (1.8-7.7) Lymphocytes # (Auto) 0.6 x10^3/uL (1.0-4.8) Monocytes # (Auto) 0.5 x10^3/uL (0.0-1.1) Eosinophils # (Auto) 0.0 x10^3/uL (0.0-0.7) Basophils # (Auto) 0.0 x10^3/uL (0.0-0.2) Sodium Level 133 mmol/L (136-145) Potassium Level 4.7 mmol/L (3.5-5.1) Chloride Level 91 mmol/L (98-107) Carbon Dioxide Level 35 mmol/L (21-32) Anion Gap 7 (6-14) Blood Urea Nitrogen 118 mg/dL (7-20) Creatinine 3.7 mg/dL (0.6-1.0) Estimated GFR (Cockcroft-Gault) 11.6 BUN/Creatinine Ratio 32 (6-20) Glucose Level 201 mg/dL (70-99) Calcium Level 8.2 mg/dL (8.5-10.1) Total Bilirubin 0.3 mg/dL (0.2-1.0) Aspartate Amino Transf (AST/SGOT) 21 U/L (15-37) Alanine Aminotransferase (ALT/SGPT) 14 U/L (14-59) Alkaline Phosphatase 89 U/L (46-116) Total Protein 6.7 g/dL (6.4-8.2) Albumin 2.5 g/dL (3.4-5.0) Albumin/Globulin Ratio 0.6 (1.0-1.7) Test 07/27/17 16:17 Glucose (Fingerstick) 369 mg/dL (70-99) Medications Current Medications Furosemide (Lasix) 40 mg 1X ONCE IVP Last administered on 07/23/17 06:04; Start 07/23/17 at 05:30; Stop 07/23/17 at 05:31; Status DC Ondansetron HCl (Zofran) 4 mg PRN Q8HRS PRN IV NAUSEA/VOMITING; Start 07/23/17 at 05:00; Stop 07/23/17 at 09:33; Status DC Morphine Sulfate 2 mg PRN Q2HR PRN IV SEVERE PAIN; Start 07/23/17 at 05:00; Stop 07/24/17 at 04:59; Status DC Acetaminophen (Tylenol) 650 mg PRN Q4HRS PRN PO FEVER; Start 07/23/17 at 05:00 ; Stop 07/24/17 at 04:59; Status Cancel Acetaminophen (Tylenol) 325 mg PRN Q4HRS PO ; Start 07/23/17 at 08:45; Stop at 13:18; Status DC Acetaminophen (Tylenol) 500 mg PRN Q4HRS PO ; Start 07/23/17 at 08:45; Stop at 13:18; Status DC Aspirin (Ecotrin) 81 mg DAILY PO Last administered on 07/27/17 09:50; Start at 09:00 Cyanocobalamin (Vitamin B-12) 1,000 mcg DAILY PO Last administered on 09:52; Start 07/23/17 at 09:00 Ferrous Sulfate (Feosol) 65 mg DAILY PO Last administered on 07/27/17 09:51; Start 07/23/17 at 09:00 Furosemide (Lasix) 40 mg DAILY PO ; Start 07/23/17 at 09:00; Stop 07/23/17 at 12 :16; Status DC Levothyroxine Sodium (Synthroid) 150 mcg DAILY PO Last administered on 09:51; Start 07/23/17 at 09:00 Pantoprazole Sodium (Protonix) 40 mg DAILY PO Last administered on 07/27/17 09 :51; Start 07/23/17 at 09:00 Polyethylene Glycol (miraLAX PACKET) 17 gm DAILY PO Last administered on 09:52; Start 07/23/17 at 09:30 Prochlorperazine Maleate (Compazine) 10 mg Q6HRS PO Last administered on 17:49; Start 07/23/17 at 12:00 Losartan Potassium (Cozaar) 50 mg DAILY PO Last administered on 07/23/17 09:41 ; Start 07/23/17 at 09:00; Stop 07/23/17 at 12:16; Status DC Atorvastatin Calcium (Lipitor) 10 mg QHS PO Last administered on 07/26/17 21: 18; Start 07/23/17 at 21:00 Metoprolol Tartrate (Lopressor) 50 mg BID PO Last administered on 07/27/17 09: 51; Start 07/23/17 at 10:00 Ondansetron HCl (Zofran Odt) 4 mg PRN Q6HRS PRN PO NAUSEA/VOMITING; Start 07/23 at 09:15 Insulin Aspart (NovoLOG) 0-5 UNITS TIDWMEALS SQ Last administered on 07/27/17 17:54; Start 07/23/17 at 12:00 Dextrose (Dextrose 50%-Water Syringe) 12.5 gm PRN Q15MIN PRN IV SEE COMMENTS Last administered on 07/26/17 07:49; Start 07/23/17 at 09:15 Alprazolam (Xanax) 0.25 mg TID PRN PRN PO ANXIETY / AGITATION Last administered on 07/26/17 05:33; Start 07/23/17 at 10:00 Darbepoetin Toño (Aranesp) 60 mcg Fr SQ Last administered on 07/23/17 20:37; Start 07/23/17 at 21:00 Furosemide (Lasix) 40 mg BID92 IVP Last administered on 07/24/17 09:01; Start 07/23/17 at 14:00; Stop 07/24/17 at 11:33; Status DC Acetaminophen/ Hydrocodone Bitart (Lortab 5/325) 1 tab PRN Q4HRS PRN PO PAIN Last administered on 07/27/17 13:34; Start 07/23/17 at 15:30 Acetaminophen/ Hydrocodone Bitart (Lortab 5/325) 2 tab PRN Q4HRS PRN PO PAIN Last administered on 07/27/17 06:46; Start 07/23/17 at 15:30 Bisacodyl (Dulcolax Supp) 10 mg PRN DAILY PRN MS CONSTIPATION; Start 07/23/17 at 16:15 Sodium Polystyrene Sulfonate (Kayexalate) 30 gm 1X ONCE PO Last administered on 07/24/17 09:01; Start 07/24/17 at 08:00; Stop 07/24/17 at 08:01; Status DC Furosemide (Lasix) 40 mg Q6HRS IVP Last administered on 07/27/17 05:30; Start 07/24/17 at 12:00; Stop 07/27/17 at 11:39; Status DC Metolazone (Zaroxolyn) 2.5 mg DAILY PO Last administered on 07/27/17 09:51; Start 07/24/17 at 12:00 Acetaminophen (Tylenol) 500 mg PRN Q4HRS PRN PO PAIN; Start 07/24/17 at 13:30 Acetaminophen (Tylenol) 325 mg PRN Q4HRS PRN PO PAIN; Start 07/24/17 at 13:30 Insulin Detemir (Levemir) 7 units QHS SQ Last administered on 07/26/17 21:23; Start 07/25/17 at 21:00; Stop 07/27/17 at 08:42; Status DC Glucose (Insta-Glucose) 15 gm PRN Q15MIN PRN PO LOW BLOOD SUGAR; Start at 08:30 Furosemide (Lasix) 80 mg BID92 PO Last administered on 07/27/17t 13:33; Start 07/27/17 at 14:00 Active Scripts Active Reported Aspir 81 (Aspirin) 81 Mg Tablet.dr 1 Tab PO DAILY Cortizone 10 (Hydrocortisone) 28 Gm Gel..gram. 28 Gm TP Tylenol (Acetaminophen) 325 Mg Tablet 500 Mg PO Tylenol (Acetaminophen) 325 Mg Tablet 325 Mg PO Miralax (Polyethylene Glycol 3350) 17 Gm Powd.pack 1 Pkt PO PRN Levothyroxine Sodium 150 Mcg Tablet 1 Tab PO DAILY Ferrous Sulfate 325 Mg Tablet 65 Mg PO DAILY B-12 (Cyanocobalamin (Vitamin B-12)) 1,000 Mcg Tablet 1,000 Mcg PO DAILY Bystolic (Nebivolol) 10 Mg Tablet 10 Mg PO DAILY Furosemide 40 Mg Tablet 1 Tab PO DAILY Prochlorperazine Maleate 10 Mg Tablet 1 Tab PO Q6HRS Ondansetron Hcl 4 Mg Tablet 1 Tab PO PRN Q6HRS Pantoprazole Sodium 40 Mg Tablet.dr 1 Tab PO DAILY Losartan Potassium 100 Mg Tablet 100 Mg PO DAILY Glimepiride 4 Mg Tablet 4 Mg PO DAILY Janumet Xr 50-1,000 Mg Tablet (Sitagliptin Phos/Metformin Hcl) 1 Each Tbmp.24hr 1 Tab PO BID Mevacor (Lovastatin) 40 Mg Tablet 40 Mg PO DAILY Vitals/I & O Vital Sign - Last 24 Hours 07/26/17 07/26/17 07/26/17 07/26/17 19:20 20:00 21:18 23:15 Temp 98.1 98.0 98.1 98.0 Pulse 68 68 62 Resp 20 22 B/P (MAP) 115/89 (98) 115/89 119/50 (73) Pulse Ox 99 93 O2 Delivery Nasal Cannula Nasal Cannula Nasal Cannula O2 Flow Rate 3.5 3.5 3.5 07/27/17 07/27/17 07/27/17 07/27/17 03:00 07:00 07:46 08:00 Temp 98.0 98.5 98.0 98.5 Pulse 59 54 Resp 20 18 19 B/P (MAP) 122/49 (73) 143/65 (91) Pulse Ox 98 92 92 O2 Delivery Nasal Cannula Nasal Cannula Nasal Cannula Nasal Cannula O2 Flow Rate 3.5 3.5 3.5 3.5 07/27/17 07/27/17 07/27/17 07/27/17 09:51 11:00 13:34 14:44 Temp 97.6 98.3 97.6 98.3 Pulse 54 63 65 Resp 18 18 B/P (MAP) 143/65 150/58 (88) 140/54 (82) Pulse Ox 97 97 97 O2 Delivery Nasal Cannula Nasal Cannula Nasal Cannula O2 Flow Rate 3.5 3.5 3.5 Intake and Output 07/27/17 07/27/17 07/28/17 15:00 23:00 07:00 Intake Total 225 ml 950 ml Balance 225 ml 950 ml ROB ARSHAD MD Jul 27, 2017 18:09
[2017-07-27 19:45] VITALS: BP 133/67
--- NOTE | 2017-07-27 20:26 | PDOC ---
GENERAL General: vss and afebrile. awake and alert and confused. azotemia worse with diuresis and weight and edema have decreased. chest essentially clear and heart regular. abdomen benign and edema decreased. BUN increased to 118 and creatinine up to 3.7. Hb stable at 8.6. Long discussion with son regarding current condition and that only option that might return her to a semi-normal state would be dialysis and she has refused same. hypoglycemia again this am and levemir dced. will back down on diuresis with expectation of improvement in mental status with improvement in azotemia but worsening of sob and chf. Problems: VITAL SIGNS Vital Signs: Vital Signs Date Time Temp Pulse Resp B/P (MAP) Pulse Ox O2 Delivery O2 Flow Rate FiO2 07/27/17 14:44 98.3 65 18 140/54 (82) 97 Nasal Cannula 3.5 98.3 I & O I & O Intake and Output 07/28/17 07:00 Intake Total 1425 ml Balance 1425 ml Intake Oral 1425 ml # Voids 3 # Bowel Movements 1 ALLERGIES Allergies: Allergies Coded Allergies Type Severity Reaction Last Updated Verified I S O L A T I O N *CONTACT* Allergy Unknown 07/26/17 Yes No Known Medication Allergies Allergy Unknown 07/26/17 Yes MEDS Medications: Current Medications Medications (Trade) Dose Ordered Sig/Silvano Start Time Stop Time Status Last Admin Dose Admin Acetaminophen (Tylenol) 325 mg PRN Q4HRS PRN 07/24/17 13:30 Acetaminophen/ Hydrocodone Bitart (Lortab 5/325) 2 tab PRN Q4HRS PRN 07/23/17 15:30 07/27/17 06:46 2 TAB Alprazolam (Xanax) 0.25 mg TID PRN PRN 07/23/17 10:00 07/26/17 05:33 0.25 MG Aspirin (Ecotrin) 81 mg DAILY 07/23/17 09:00 07/27/17 09:50 81 MG Atorvastatin Calcium (Lipitor) 10 mg QHS 07/23/17 21:00 07/26/17 21:18 10 MG Bisacodyl (Dulcolax Supp) 10 mg PRN DAILY PRN 07/23/17 16:15 Cyanocobalamin (Vitamin B-12) 1,000 mcg DAILY 07/23/17 09:00 07/27/17 09:52 1,000 MCG Darbepoetin Toño (Aranesp) 60 mcg Fr 07/23/17 21:00 07/23/17 20:37 60 MCG Dextrose (Dextrose 50%-Water Syringe) 12.5 gm PRN Q15MIN PRN 07/23/17 09:15 07/26/17 07:49 12.5 GM Ferrous Sulfate (Feosol) 65 mg DAILY 07/23/17 09:00 07/27/17 09:51 65 MG Furosemide (Lasix) 80 mg [id number] 07/27/17 14:00 07/27/17 13:33 80 MG Glucose (Insta-Glucose) 15 gm PRN Q15MIN PRN 07/26/17 08:30 Insulin Aspart (NovoLOG) 0-5 UNITS TIDWMEALS 07/23/17 12:00 07/27/17 17:54 5 UNITS Insulin Detemir (Levemir) 7 units QHS 07/25/17 21:00 07/27/17 08:42 DC 07/26/17 21:23 7 UNITS Levothyroxine Sodium (Synthroid) 150 mcg DAILY 07/23/17 09:00 07/27/17 09:51 150 MCG Losartan Potassium (Cozaar) 50 mg DAILY 07/23/17 09:00 07/23/17 12:16 DC 07/23/17 09:41 50 MG Metolazone (Zaroxolyn) 2.5 mg DAILY 07/24/17 12:00 07/27/17 09:51 2.5 MG Metoprolol Tartrate (Lopressor) 50 mg BID 07/23/17 10:00 07/27/17 09:51 50 MG Morphine Sulfate 2 mg PRN Q2HR PRN 07/23/17 05:00 07/24/17 04:59 DC Ondansetron HCl (Zofran Odt) 4 mg PRN Q6HRS PRN 07/23/17 09:15 Ondansetron HCl (Zofran) 4 mg PRN Q8HRS PRN 07/23/17 05:00 07/23/17 09:33 DC Pantoprazole Sodium (Protonix) 40 mg DAILY 07/23/17 09:00 07/27/17 09:51 40 MG Polyethylene Glycol (miraLAX PACKET) 17 gm DAILY 07/23/17 09:30 07/27/17 09:52 17 GM Prochlorperazine Maleate (Compazine) 10 mg Q6HRS 07/23/17 12:00 07/27/17 17:49 10 MG Quinine Sulfate (Qualaquin) 324 mg PRN QHS PRN 07/27/17 18:45 Sodium Polystyrene Sulfonate (Kayexalate) 30 gm 1X ONCE 07/24/17 08:00 07/24/17 08:01 DC 07/24/17 09:01 30 GM LAB Lab: Laboratory Tests Test 07/26/17 21:01 07/27/17 05:41 07/27/17 05:53 07/27/17 06:10 Glucose (Fingerstick) 232 mg/dL (70-99) 42 mg/dL (70-99) 54 mg/dL (70-99) 90 mg/dL (70-99) Test 07/27/17 06:29 07/27/17 07:30 07/27/17 10:24 07/27/17 10:35 Glucose (Fingerstick) 97 mg/dL (70-99) 124 mg/dL (70-99) 201 mg/dL (70-99) White Blood Count 6.4 x10^3/uL (4.0-11.0) Red Blood Count 2.82 x10^6/uL (3.50-5.40) Hemoglobin 8.6 g/dL (12.0-15.5) Hematocrit 26.7 % (36.0-47.0) Mean Corpuscular Volume 95 fL (79-100) Mean Corpuscular Hemoglobin 31 pg (25-35) Mean Corpuscular Hemoglobin Concent 32 g/dL (31-37) Red Cell Distribution Width 15.5 % (11.5-14.5) Platelet Count 396 x10^3/uL (140-400) Neutrophils (%) (Auto) 82 % (31-73) Lymphocytes (%) (Auto) 9 % (24-48) Monocytes (%) (Auto) 8 % (0-9) Eosinophils (%) (Auto) 1 % (0-3) Basophils (%) (Auto) 0 % (0-3) Neutrophils # (Auto) 5.3 x10^3uL (1.8-7.7) Lymphocytes # (Auto) 0.6 x10^3/uL (1.0-4.8) Monocytes # (Auto) 0.5 x10^3/uL (0.0-1.1) Eosinophils # (Auto) 0.0 x10^3/uL (0.0-0.7) Basophils # (Auto) 0.0 x10^3/uL (0.0-0.2) Sodium Level 133 mmol/L (136-145) Potassium Level 4.7 mmol/L (3.5-5.1) Chloride Level 91 mmol/L (98-107) Carbon Dioxide Level 35 mmol/L (21-32) Anion Gap 7 (6-14) Blood Urea Nitrogen 118 mg/dL (7-20) Creatinine 3.7 mg/dL (0.6-1.0) Estimated GFR (Cockcroft-Gault) 11.6 BUN/Creatinine Ratio 32 (6-20) Glucose Level 201 mg/dL (70-99) Calcium Level 8.2 mg/dL (8.5-10.1) Total Bilirubin 0.3 mg/dL (0.2-1.0) Aspartate Amino Transf (AST/SGOT) 21 U/L (15-37) Alanine Aminotransferase (ALT/SGPT) 14 U/L (14-59) Alkaline Phosphatase 89 U/L (46-116) Total Protein 6.7 g/dL (6.4-8.2) Albumin 2.5 g/dL (3.4-5.0) Albumin/Globulin Ratio 0.6 (1.0-1.7) Test 07/27/17 16:17 Glucose (Fingerstick) 369 mg/dL (70-99) JESSICA GREWAL MD Jul 27, 2017 20:26
[2017-07-27] MEDS: ATORVASTATIN CALCIUM 10 MG TABLET. PO SCH (21:02)
[2017-07-27] MEDS: quiNINE 324 MG CAPSULE. PO PRN (21:02)
[2017-07-27 22:45] VITALS: BP 130/64
[2017-07-28] MEDS: PROCHLORPERAZINE 5 MG TABLET. PO SCH ×4 (00:22→17:08)
[2017-07-28 02:55] VITALS: BP 138/90
[2017-07-28] MEDS: HYDROcodone/APAP 5/325MG 1 TAB TABLET PO PRN ×2 (05:08→20:08)
[2017-07-28 06:54] LABS: BASO % 0 % (0-3); EOS % 1 % (0-3); LYMPH # 0.7 x10^3/uL (1.0-4.8); LYMPH % 11 % (24-48); MEAN CORPUSCULAR HEMOGLOBIN 31 pg (25-35); MEAN CORPUSCULAR HGB CONC 33 g/dL (31-37); MEAN CORPUSCULAR VOLUME 94 fL (79-100); MONO % 9 % (0-9); NEUT % 79 % (31-73); PLATELET COUNT 364 x10^3/uL (140-400); RED BLOOD COUNT 2.55 x10^6/uL (3.50-5.40); RED CELL DISTRIBUTION WIDTH 15.4 % (11.5-14.5); WHITE BLOOD COUNT 6.2 x10^3/uL (4.0-11.0)
[2017-07-28 07:00] VITALS: BP 129/46
[2017-07-28 07:13] LABS: ALBUMIN 2.5 g/dL (3.4-5.0); ALBUMIN/GLOBULIN RATIO 0.6 (1.0-1.7); CALCIUM 8.5 mg/dL (8.5-10.1); CREATININE 4.2 mg/dL (0.6-1.0); POTASSIUM 4.5 mmol/L (3.5-5.1); TOTAL BILIRUBIN 0.3 mg/dL (0.2-1.0); TOTAL PROTEIN 6.6 g/dL (6.4-8.2)
--- NOTE | 2017-07-28 08:16 | PDOC ---
GENERAL General: vss and afebrile. awakens but back to sleep and denies any complaints other than rectal pain this am. chest clear, heart regular, abdomen benign, and edema and weight decreased further. BUN increased to 127 and creatinine increased to 4.2. will dc all diuretics for now and observe. family still considering more aggressive treatment. Problems: VITAL SIGNS Vital Signs: Vital Signs Date Time Temp Pulse Resp B/P (MAP) Pulse Ox O2 Delivery O2 Flow Rate FiO2 07/28/17 05:08 Nasal Cannula 3.5 07/28/17 02:55 97.8 61 18 138/90 (106) 92 97.8 ALLERGIES Allergies: Allergies Coded Allergies Type Severity Reaction Last Updated Verified I S O L A T I O N *CONTACT* Allergy Unknown 07/26/17 Yes No Known Medication Allergies Allergy Unknown 07/26/17 Yes MEDS Medications: Current Medications Medications (Trade) Dose Ordered Sig/Silvano Start Time Stop Time Status Last Admin Dose Admin Acetaminophen (Tylenol) 325 mg PRN Q4HRS PRN 07/24/17 13:30 Acetaminophen/ Hydrocodone Bitart (Lortab 5/325) 2 tab PRN Q4HRS PRN 07/23/17 15:30 07/27/17 06:46 2 TAB Alprazolam (Xanax) 0.25 mg TID PRN PRN 07/23/17 10:00 07/26/17 05:33 0.25 MG Aspirin (Ecotrin) 81 mg DAILY 07/23/17 09:00 07/27/17 09:50 81 MG Atorvastatin Calcium (Lipitor) 10 mg QHS 07/23/17 21:00 07/27/17 21:02 10 MG Bisacodyl (Dulcolax Supp) 10 mg PRN DAILY PRN 07/23/17 16:15 Cyanocobalamin (Vitamin B-12) 1,000 mcg DAILY 07/23/17 09:00 07/27/17 09:52 1,000 MCG Darbepoetin Toño (Aranesp) 60 mcg Fr 07/23/17 21:00 07/23/17 20:37 60 MCG Dextrose (Dextrose 50%-Water Syringe) 12.5 gm PRN Q15MIN PRN 07/23/17 09:15 07/26/17 07:49 12.5 GM Ferrous Sulfate (Feosol) 65 mg DAILY 07/23/17 09:00 07/27/17 09:51 65 MG Furosemide (Lasix) 80 mg [id number] 07/27/17 14:00 07/27/17 13:33 80 MG Glucose (Insta-Glucose) 15 gm PRN Q15MIN PRN 07/26/17 08:30 Insulin Aspart (NovoLOG) 0-5 UNITS TIDWMEALS 07/23/17 12:00 07/27/17 17:54 5 UNITS Insulin Detemir (Levemir) 7 units QHS 07/25/17 21:00 07/27/17 08:42 DC 07/26/17 21:23 7 UNITS Levothyroxine Sodium (Synthroid) 150 mcg DAILY 07/23/17 09:00 07/27/17 09:51 150 MCG Losartan Potassium (Cozaar) 50 mg DAILY 07/23/17 09:00 07/23/17 12:16 DC 07/23/17 09:41 50 MG Metolazone (Zaroxolyn) 2.5 mg DAILY 07/24/17 12:00 07/27/17 20:28 DC 07/27/17 09:51 2.5 MG Metoprolol Tartrate (Lopressor) 50 mg BID 07/23/17 10:00 07/27/17 21:03 50 MG Morphine Sulfate 2 mg PRN Q2HR PRN 07/23/17 05:00 07/24/17 04:59 DC Ondansetron HCl (Zofran Odt) 4 mg PRN Q6HRS PRN 07/23/17 09:15 Ondansetron HCl (Zofran) 4 mg PRN Q8HRS PRN 07/23/17 05:00 07/23/17 09:33 DC Pantoprazole Sodium (Protonix) 40 mg DAILY 07/23/17 09:00 07/27/17 09:51 40 MG Polyethylene Glycol (miraLAX PACKET) 17 gm DAILY 07/23/17 09:30 07/27/17 09:52 17 GM Prochlorperazine Maleate (Compazine) 10 mg Q6HRS 07/23/17 12:00 07/28/17 05:07 10 MG Quinine Sulfate (Qualaquin) 324 mg PRN QHS PRN 07/27/17 18:45 07/27/17 21:02 324 MG Sodium Polystyrene Sulfonate (Kayexalate) 30 gm 1X ONCE 07/24/17 08:00 07/24/17 08:01 DC 07/24/17 09:01 30 GM LAB Lab: Laboratory Tests Test 07/27/17 10:24 07/27/17 10:35 07/27/17 16:17 07/27/17 20:45 Glucose (Fingerstick) 201 mg/dL (70-99) 369 mg/dL (70-99) 290 mg/dL (70-99) White Blood Count 6.4 x10^3/uL (4.0-11.0) Red Blood Count 2.82 x10^6/uL (3.50-5.40) Hemoglobin 8.6 g/dL (12.0-15.5) Hematocrit 26.7 % (36.0-47.0) Mean Corpuscular Volume 95 fL (79-100) Mean Corpuscular Hemoglobin 31 pg (25-35) Mean Corpuscular Hemoglobin Concent 32 g/dL (31-37) Red Cell Distribution Width 15.5 % (11.5-14.5) Platelet Count 396 x10^3/uL (140-400) Neutrophils (%) (Auto) 82 % (31-73) Lymphocytes (%) (Auto) 9 % (24-48) Monocytes (%) (Auto) 8 % (0-9) Eosinophils (%) (Auto) 1 % (0-3) Basophils (%) (Auto) 0 % (0-3) Neutrophils # (Auto) 5.3 x10^3uL (1.8-7.7) Lymphocytes # (Auto) 0.6 x10^3/uL (1.0-4.8) Monocytes # (Auto) 0.5 x10^3/uL (0.0-1.1) Eosinophils # (Auto) 0.0 x10^3/uL (0.0-0.7) Basophils # (Auto) 0.0 x10^3/uL (0.0-0.2) Sodium Level 133 mmol/L (136-145) Potassium Level 4.7 mmol/L (3.5-5.1) Chloride Level 91 mmol/L (98-107) Carbon Dioxide Level 35 mmol/L (21-32) Anion Gap 7 (6-14) Blood Urea Nitrogen 118 mg/dL (7-20) Creatinine 3.7 mg/dL (0.6-1.0) Estimated GFR (Cockcroft-Gault) 11.6 BUN/Creatinine Ratio 32 (6-20) Glucose Level 201 mg/dL (70-99) Calcium Level 8.2 mg/dL (8.5-10.1) Total Bilirubin 0.3 mg/dL (0.2-1.0) Aspartate Amino Transf (AST/SGOT) 21 U/L (15-37) Alanine Aminotransferase (ALT/SGPT) 14 U/L (14-59) Alkaline Phosphatase 89 U/L (46-116) Total Protein 6.7 g/dL (6.4-8.2) Albumin 2.5 g/dL (3.4-5.0) Albumin/Globulin Ratio 0.6 (1.0-1.7) Test 07/28/17 05:30 White Blood Count 6.2 x10^3/uL (4.0-11.0) Red Blood Count 2.55 x10^6/uL (3.50-5.40) Hemoglobin 8.0 g/dL (12.0-15.5) Hematocrit 24.0 % (36.0-47.0) Mean Corpuscular Volume 94 fL (79-100) Mean Corpuscular Hemoglobin 31 pg (25-35) Mean Corpuscular Hemoglobin Concent 33 g/dL (31-37) Red Cell Distribution Width 15.4 % (11.5-14.5) Platelet Count 364 x10^3/uL (140-400) Neutrophils (%) (Auto) 79 % (31-73) Lymphocytes (%) (Auto) 11 % (24-48) Monocytes (%) (Auto) 9 % (0-9) Eosinophils (%) (Auto) 1 % (0-3) Basophils (%) (Auto) 0 % (0-3) Neutrophils # (Auto) 4.9 x10^3uL (1.8-7.7) Lymphocytes # (Auto) 0.7 x10^3/uL (1.0-4.8) Monocytes # (Auto) 0.6 x10^3/uL (0.0-1.1) Eosinophils # (Auto) 0.0 x10^3/uL (0.0-0.7) Basophils # (Auto) 0.0 x10^3/uL (0.0-0.2) Sodium Level 130 mmol/L (136-145) Potassium Level 4.5 mmol/L (3.5-5.1) Chloride Level 89 mmol/L (98-107) Carbon Dioxide Level 33 mmol/L (21-32) Anion Gap 8 (6-14) Blood Urea Nitrogen 127 mg/dL (7-20) Creatinine 4.2 mg/dL (0.6-1.0) Estimated GFR (Cockcroft-Gault) 10.0 BUN/Creatinine Ratio 30 (6-20) Glucose Level 299 mg/dL (70-99) Calcium Level 8.5 mg/dL (8.5-10.1) Total Bilirubin 0.3 mg/dL (0.2-1.0) Aspartate Amino Transf (AST/SGOT) 20 U/L (15-37) Alanine Aminotransferase (ALT/SGPT) 16 U/L (14-59) Alkaline Phosphatase 92 U/L (46-116) Total Protein 6.6 g/dL (6.4-8.2) Albumin 2.5 g/dL (3.4-5.0) Albumin/Globulin Ratio 0.6 (1.0-1.7) JESSICA GREWAL MD Jul 28, 2017 08:16
[2017-07-28] MEDS: ASPIRIN ENTERIC COATED 81 MG TABLET.DR. PO SCH (09:05)
[2017-07-28] MEDS: FERROUS SULFATE 325 MG TABLET. PO SCH (09:06)
[2017-07-28] MEDS: LEVOTHYROXINE 150 MCG TABLET PO SCH (09:06)
[2017-07-28] MEDS: METOPROLOL TART IMMED RELEASE 50 MG TABLET. PO SCH ×2 (09:09→20:45)
[2017-07-28] MEDS: PANTOPRAZOLE 40 MG TABLET.DR. PO SCH (09:09)
[2017-07-28] MEDS: INSULIN ASPART 300 UNITS/3 ML INSULN.PEN SQ SCH ×3 (09:18→17:00)
[2017-07-28] MEDS: POLYETHYLENE GLYCOL 3350 17 GM PACKET. PO SCH (09:19)
[2017-07-28 11:00] VITALS: BP 121/39
--- NOTE | 2017-07-28 12:01 | PDOC ---
Renal-Progress Notes Subjective Notes Notes CONFUSED History of Present Illness Hx of present illness NO CHANGE Vitals Vitals Vital Signs Date Time Temp Pulse Resp B/P (MAP) Pulse Ox O2 Delivery O2 Flow Rate FiO2 07/28/17 11:00 97.5 53 16 121/39 (66) 100 Nasal Cannula 3.5 97.5 Weight Weight [ ] I.O. Intake and Output Intake and Output 07/29/17 07:00 Intake Total 250 ml Balance 250 ml Intake Oral 250 ml Labs Labs Laboratory Tests Test 07/27/17 16:17 07/27/17 20:45 07/28/17 05:30 07/28/17 07:23 Glucose (Fingerstick) 369 mg/dL (70-99) 290 mg/dL (70-99) 279 mg/dL (70-99) White Blood Count 6.2 x10^3/uL (4.0-11.0) Red Blood Count 2.55 x10^6/uL (3.50-5.40) Hemoglobin 8.0 g/dL (12.0-15.5) Hematocrit 24.0 % (36.0-47.0) Mean Corpuscular Volume 94 fL (79-100) Mean Corpuscular Hemoglobin 31 pg (25-35) Mean Corpuscular Hemoglobin Concent 33 g/dL (31-37) Red Cell Distribution Width 15.4 % (11.5-14.5) Platelet Count 364 x10^3/uL (140-400) Neutrophils (%) (Auto) 79 % (31-73) Lymphocytes (%) (Auto) 11 % (24-48) Monocytes (%) (Auto) 9 % (0-9) Eosinophils (%) (Auto) 1 % (0-3) Basophils (%) (Auto) 0 % (0-3) Neutrophils # (Auto) 4.9 x10^3uL (1.8-7.7) Lymphocytes # (Auto) 0.7 x10^3/uL (1.0-4.8) Monocytes # (Auto) 0.6 x10^3/uL (0.0-1.1) Eosinophils # (Auto) 0.0 x10^3/uL (0.0-0.7) Basophils # (Auto) 0.0 x10^3/uL (0.0-0.2) Sodium Level 130 mmol/L (136-145) Potassium Level 4.5 mmol/L (3.5-5.1) Chloride Level 89 mmol/L (98-107) Carbon Dioxide Level 33 mmol/L (21-32) Anion Gap 8 (6-14) Blood Urea Nitrogen 127 mg/dL (7-20) Creatinine 4.2 mg/dL (0.6-1.0) Estimated GFR (Cockcroft-Gault) 10.0 BUN/Creatinine Ratio 30 (6-20) Glucose Level 299 mg/dL (70-99) Calcium Level 8.5 mg/dL (8.5-10.1) Total Bilirubin 0.3 mg/dL (0.2-1.0) Aspartate Amino Transf (AST/SGOT) 20 U/L (15-37) Alanine Aminotransferase (ALT/SGPT) 16 U/L (14-59) Alkaline Phosphatase 92 U/L (46-116) Total Protein 6.6 g/dL (6.4-8.2) Albumin 2.5 g/dL (3.4-5.0) Albumin/Globulin Ratio 0.6 (1.0-1.7) Test 07/28/17 10:25 Glucose (Fingerstick) 374 mg/dL (70-99) Review of Systems Constitutional: yes: other (CONFUSED) Physical Exam General Appearance: no apparent distress Skin: warm Respiratory: decreased breath sounds Heart: S1S2, RRR Abdomen: soft, N/T Extremities: pulses present, edema Assessment Assessment IMP CONFUSED-UREMIA ANASARCA ANEMIA ESRD-PROGRESSIVE WORSENING OF HER RENAL LABS DM II HTN HYPERKALEMIA-RESOLVED PLAN DIURETICS STOPPED SUPPORTIVE CARE POOR PROGNOSIS PALLIATIVE CARE MOST APPROPRIATE FOR HER SHE HAS REFUSED DIALYSIS SHE IS ALSO NOT A CANDIDATE FOR DIALYSIS FINA ESPINOZA MD Jul 28, 2017 12:01
[2017-07-28] MEDS: CYANOCOBALAMIN (VITAMIN B-12) 1,000 MCG TABLET. PO SCH (12:47)
[2017-07-28 14:47] VITALS: BP 140/59
[2017-07-28 19:10] VITALS: BP 145/59
[2017-07-28] MEDS: ATORVASTATIN CALCIUM 10 MG TABLET. PO SCH (20:45)
[2017-07-28] MEDS: quiNINE 324 MG CAPSULE. PO PRN (20:45)
[2017-07-28 23:05] VITALS: BP 135/63
[2017-07-29] MEDS: PROCHLORPERAZINE 5 MG TABLET. PO SCH ×4 (01:12→17:58)
[2017-07-29 03:10] VITALS: BP 133/51
[2017-07-29] MEDS ORDERED: LABETALOL 20 MG/4 ML DISP.SYRIN. IVP PRN (04:15)
[2017-07-29 07:30] VITALS: BP 147/64
[2017-07-29] MEDS: ASPIRIN ENTERIC COATED 81 MG TABLET.DR. PO SCH (09:26)
[2017-07-29] MEDS: LEVOTHYROXINE 150 MCG TABLET PO SCH (09:26)
[2017-07-29] MEDS: PANTOPRAZOLE 40 MG TABLET.DR. PO SCH (09:26)
[2017-07-29] MEDS: FERROUS SULFATE 325 MG TABLET. PO SCH (09:26)
[2017-07-29] MEDS: CYANOCOBALAMIN (VITAMIN B-12) 1,000 MCG TABLET. PO SCH (09:26)
[2017-07-29] MEDS: POLYETHYLENE GLYCOL 3350 17 GM PACKET. PO SCH (09:27)
[2017-07-29] MEDS: METOPROLOL TART IMMED RELEASE 50 MG TABLET. PO SCH ×2 (09:27→20:32)
[2017-07-29] MEDS: HYDROcodone/APAP 5/325MG 1 TAB TABLET PO PRN ×2 (09:30→18:00)
[2017-07-29] MEDS: INSULIN ASPART 300 UNITS/3 ML INSULN.PEN SQ SCH ×3 (09:35→17:00)
[2017-07-29 11:22] VITALS: BP 128/59
--- NOTE | 2017-07-29 11:44 | PDOC ---
Renal-Progress Notes Subjective Notes Notes NO COMPLAINTS. ACTUALLY MUCH LESS CONFUSED AND ABLE TO HOLD A CONVERSATION. EXPLAINED THAT SHE HAS ESRD AND SHE REFUSED DIALYSIS AGAIN SHE HAS IN THE PAST Vitals Vitals Vital Signs Date Time Temp Pulse Resp B/P (MAP) Pulse Ox O2 Delivery O2 Flow Rate FiO2 07/29/17 11:22 98.2 60 18 128/59 (82) 96 Nasal Cannula 3.0 98.2 Weight Weight [ ] I.O. Intake and Output Intake and Output 07/30/17 07:00 Intake Total 360 ml Output Total 450 ml Balance -90 ml Intake Oral 360 ml Output Urine Total 450 ml # Voids 1 Labs Labs Laboratory Tests Test 07/28/17 16:12 07/28/17 22:23 07/29/17 07:41 Glucose (Fingerstick) 256 mg/dL (70-99) 224 mg/dL (70-99) 264 mg/dL (70-99) Review of Systems Constitutional: yes: other (CONFUSED) Physical Exam General Appearance: no apparent distress Skin: warm Respiratory: decreased breath sounds Heart: S1S2, RRR Abdomen: soft, N/T Extremities: pulses present, edema Assessment Assessment IMP UREMIA ANASARCA-BETTER ANEMIA ESRD-PROGRESSIVE WORSENING OF HER RENAL LABS DM II HTN HYPERKALEMIA-RESOLVED PLAN DIURETICS STOPPED SUPPORTIVE CARE POOR PROGNOSIS PALLIATIVE CARE MOST APPROPRIATE FOR HER SHE HAS REFUSED DIALYSIS AGAIN TODAY TRIED TO CALL SON TWICE BUT HE DID NOT PHARMACY GRAD INTERN NOT MUCH ELSE TO OFFER FINA ESPINOZA MD Jul 29, 2017 11:44
--- NOTE | 2017-07-29 14:58 | PDOC ---
GENERAL General: vss and afebrile. still obtunded compared to normal. chest good breath sounds. heart regular. abdomen benign and edema remains improved. diuretics on hold and weight increased by 4 lbs since yesterday. will recheck labs in am and expect improvement in renal function and hopefully mental status. Problems: VITAL SIGNS Vital Signs: Vital Signs Date Time Temp Pulse Resp B/P (MAP) Pulse Ox O2 Delivery O2 Flow Rate FiO2 07/29/17 11:22 98.2 60 18 128/59 (82) 96 Nasal Cannula 3.0 98.2 I & O I & O Intake and Output 07/30/17 06:59 Intake Total 600 ml Output Total 450 ml Balance 150 ml Intake Oral 600 ml Output Urine Total 450 ml # Voids 1 ALLERGIES Allergies: Allergies Coded Allergies Type Severity Reaction Last Updated Verified I S O L A T I O N *CONTACT* Allergy Unknown 07/26/17 Yes No Known Medication Allergies Allergy Unknown 07/26/17 Yes MEDS Medications: Current Medications Medications (Trade) Dose Ordered Sig/Silvano Start Time Stop Time Status Last Admin Dose Admin Acetaminophen (Tylenol) 325 mg PRN Q4HRS PRN 07/24/17 13:30 Acetaminophen/ Hydrocodone Bitart (Lortab 5/325) 2 tab PRN Q4HRS PRN 07/23/17 15:30 07/29/17 09:30 2 TAB Alprazolam (Xanax) 0.25 mg TID PRN PRN 07/23/17 10:00 07/26/17 05:33 0.25 MG Aspirin (Ecotrin) 81 mg DAILY 07/23/17 09:00 07/29/17 09:26 81 MG Atorvastatin Calcium (Lipitor) 10 mg QHS 07/23/17 21:00 07/28/17 20:45 10 MG Bisacodyl (Dulcolax Supp) 10 mg PRN DAILY PRN 07/23/17 16:15 Cyanocobalamin (Vitamin B-12) 1,000 mcg DAILY 07/23/17 09:00 07/29/17 09:26 1,000 MCG Darbepoetin Toño (Aranesp) 60 mcg Fr 07/23/17 21:00 07/23/17 20:37 60 MCG Dextrose (Dextrose 50%-Water Syringe) 12.5 gm PRN Q15MIN PRN 07/23/17 09:15 07/26/17 07:49 12.5 GM Ferrous Sulfate (Feosol) 65 mg DAILY 07/23/17 09:00 07/29/17 09:26 65 MG Furosemide (Lasix) 80 mg [id number] 07/27/17 14:00 07/28/17 08:17 DC 07/27/17 13:33 80 MG Glucose (Insta-Glucose) 15 gm PRN Q15MIN PRN 07/26/17 08:30 Insulin Aspart (NovoLOG) 0-5 UNITS TIDWMEALS 07/23/17 12:00 07/29/17 13:24 5 UNITS Insulin Detemir (Levemir) 7 units QHS 07/25/17 21:00 07/27/17 08:42 DC 07/26/17 21:23 7 UNITS Labetalol HCl (Normodyne) 20 mg PRN Q6HRS PRN 07/29/17 04:15 UNV Levothyroxine Sodium (Synthroid) 150 mcg DAILY 07/23/17 09:00 07/29/17 09:26 150 MCG Losartan Potassium (Cozaar) 50 mg DAILY 07/23/17 09:00 07/23/17 12:16 DC 07/23/17 09:41 50 MG Metolazone (Zaroxolyn) 2.5 mg DAILY 07/24/17 12:00 07/27/17 20:28 DC 07/27/17 09:51 2.5 MG Metoprolol Tartrate (Lopressor) 50 mg BID 07/23/17 10:00 07/29/17 09:27 50 MG Morphine Sulfate 2 mg PRN Q2HR PRN 07/23/17 05:00 07/24/17 04:59 DC Ondansetron HCl (Zofran Odt) 4 mg PRN Q6HRS PRN 07/23/17 09:15 Ondansetron HCl (Zofran) 4 mg PRN Q8HRS PRN 07/23/17 05:00 07/23/17 09:33 DC Pantoprazole Sodium (Protonix) 40 mg DAILY 07/23/17 09:00 07/29/17 09:26 40 MG Polyethylene Glycol (miraLAX PACKET) 17 gm DAILY 07/23/17 09:30 07/29/17 09:27 17 GM Prochlorperazine Maleate (Compazine) 10 mg Q6HRS 07/23/17 12:00 07/29/17 13:21 10 MG Quinine Sulfate (Qualaquin) 324 mg PRN QHS PRN 07/27/17 18:45 07/28/17 20:45 324 MG Sodium Polystyrene Sulfonate (Kayexalate) 30 gm 1X ONCE 07/24/17 08:00 07/24/17 08:01 DC 07/24/17 09:01 30 GM LAB Lab: Laboratory Tests Test 07/28/17 16:12 07/28/17 22:23 07/29/17 07:41 07/29/17 11:45 Glucose (Fingerstick) 256 mg/dL (70-99) 224 mg/dL (70-99) 264 mg/dL (70-99) 312 mg/dL (70-99) JESSICA GREWAL MD Jul 29, 2017 14:58
[2017-07-29 15:21] VITALS: BP 131/58
[2017-07-29 19:10] VITALS: BP 124/41
[2017-07-29] MEDS: ATORVASTATIN CALCIUM 10 MG TABLET. PO SCH (20:31)
[2017-07-29] MEDS: quiNINE 324 MG CAPSULE. PO PRN (20:31)
[2017-07-29 23:10] VITALS: BP 153/58
[2017-07-30 03:10] VITALS: BP 136/53
[2017-07-30 05:52] LABS: BASO % 1 % (0-3); EOS % 2 % (0-3); HEMATOCRIT 22.8 % (36.0-47.0); HEMOGLOBIN 7.8 g/dL (12.0-15.5); LYMPH # 0.6 x10^3/uL (1.0-4.8); LYMPH % 10 % (24-48); MEAN CORPUSCULAR HEMOGLOBIN 32 pg (25-35); MEAN CORPUSCULAR HGB CONC 34 g/dL (31-37); MEAN CORPUSCULAR VOLUME 94 fL (79-100); MONO % 10 % (0-9); NEUT % 78 % (31-73); PLATELET COUNT 388 x10^3/uL (140-400); RED BLOOD COUNT 2.44 x10^6/uL (3.50-5.40); RED CELL DISTRIBUTION WIDTH 15.3 % (11.5-14.5); WHITE BLOOD COUNT 6.4 x10^3/uL (4.0-11.0)
[2017-07-30 06:08] LABS: CALCIUM 8.1 mg/dL (8.5-10.1); CREATININE 4.1 mg/dL (0.6-1.0); GFR 10.3; POTASSIUM 5.1 mmol/L (3.5-5.1)
[2017-07-30] MEDS: PROCHLORPERAZINE 5 MG TABLET. PO SCH ×4 (06:25→18:14)
[2017-07-30 07:00] VITALS: BP 151/59
[2017-07-30] MEDS: PANTOPRAZOLE 40 MG TABLET.DR. PO SCH (08:39)
[2017-07-30] MEDS: FERROUS SULFATE 325 MG TABLET. PO SCH (08:39)
[2017-07-30] MEDS: METOPROLOL TART IMMED RELEASE 50 MG TABLET. PO SCH ×2 (08:40→20:36)
[2017-07-30] MEDS: LEVOTHYROXINE 150 MCG TABLET PO SCH (08:40)
[2017-07-30] MEDS: CYANOCOBALAMIN (VITAMIN B-12) 1,000 MCG TABLET. PO SCH (08:40)
[2017-07-30] MEDS: INSULIN ASPART 300 UNITS/3 ML INSULN.PEN SQ SCH ×4 (08:44→18:19)
[2017-07-30] MEDS: POLYETHYLENE GLYCOL 3350 17 GM PACKET. PO SCH (09:00)
[2017-07-30] MEDS: ASPIRIN ENTERIC COATED 81 MG TABLET.DR. PO SCH (09:08)
[2017-07-30 11:00] VITALS: BP 143/50
--- NOTE | 2017-07-30 11:39 | PDOC ---
Renal-Progress Notes Subjective Notes Notes NO COMPLAINTS, SOMNOLENT History of Present Illness Hx of present illness STABLE Vitals Vitals Vital Signs Date Time Temp Pulse Resp B/P (MAP) Pulse Ox O2 Delivery O2 Flow Rate FiO2 07/30/17 11:00 98.6 62 18 143/50 (81) 93 Nasal Cannula 3.0 98.6 Weight Weight [ ] Labs Labs Laboratory Tests Test 07/29/17 11:45 07/29/17 16:45 07/29/17 20:40 07/30/17 05:00 Glucose (Fingerstick) 312 mg/dL (70-99) 160 mg/dL (70-99) 268 mg/dL (70-99) White Blood Count 6.4 x10^3/uL (4.0-11.0) Red Blood Count 2.44 x10^6/uL (3.50-5.40) Hemoglobin 7.8 g/dL (12.0-15.5) Hematocrit 22.8 % (36.0-47.0) Mean Corpuscular Volume 94 fL (79-100) Mean Corpuscular Hemoglobin 32 pg (25-35) Mean Corpuscular Hemoglobin Concent 34 g/dL (31-37) Red Cell Distribution Width 15.3 % (11.5-14.5) Platelet Count 388 x10^3/uL (140-400) Neutrophils (%) (Auto) 78 % (31-73) Lymphocytes (%) (Auto) 10 % (24-48) Monocytes (%) (Auto) 10 % (0-9) Eosinophils (%) (Auto) 2 % (0-3) Basophils (%) (Auto) 1 % (0-3) Neutrophils # (Auto) 5.0 x10^3uL (1.8-7.7) Lymphocytes # (Auto) 0.6 x10^3/uL (1.0-4.8) Monocytes # (Auto) 0.6 x10^3/uL (0.0-1.1) Eosinophils # (Auto) 0.1 x10^3/uL (0.0-0.7) Basophils # (Auto) 0.0 x10^3/uL (0.0-0.2) Sodium Level 127 mmol/L (136-145) Potassium Level 5.1 mmol/L (3.5-5.1) Chloride Level 89 mmol/L (98-107) Carbon Dioxide Level 31 mmol/L (21-32) Anion Gap 7 (6-14) Blood Urea Nitrogen 123 mg/dL (7-20) Creatinine 4.1 mg/dL (0.6-1.0) Estimated GFR (Cockcroft-Gault) 10.3 Glucose Level 350 mg/dL (70-99) Calcium Level 8.1 mg/dL (8.5-10.1) Test 07/30/17 07:45 Glucose (Fingerstick) 365 mg/dL (70-99) Review of Systems Constitutional: yes: other (CONFUSED) Physical Exam General Appearance: no apparent distress Skin: warm Respiratory: decreased breath sounds Heart: S1S2, RRR Abdomen: soft, N/T Extremities: pulses present, edema Assessment Assessment IMP UREMIA LETHARGY ANASARCA-BETTER ANEMIA ESRD-PROGRESSIVE WORSENING OF HER RENAL LABS DM II HTN HYPERKALEMIA-RESOLVED PLAN DIURETICS STOPPED SUPPORTIVE CARE POOR PROGNOSIS PALLIATIVE CARE MOST APPROPRIATE FOR HER SHE HAS REFUSED DIALYSIS AGAIN TRIED TO CALL SON TWICE YESTERDAY BUT HE DID NOT LOG BUYER NOT MUCH ELSE TO OFFER FINA ESPINOZA MD Jul 30, 2017 11:39
[2017-07-30 15:00] VITALS: BP 147/55
[2017-07-30 19:33] VITALS: BP 155/53
[2017-07-30] MEDS: ATORVASTATIN CALCIUM 10 MG TABLET. PO SCH (20:36)
[2017-07-30] MEDS: DARBEPOETIN ALFA 60 MCG/0.3 ML DISP.SYRIN. SQ SCH (20:40)
[2017-07-30] MEDS ORDERED: INSULIN ASPART 300 UNITS/3 ML INSULN.PEN SQ ONE (21:00)
[2017-07-30] MEDS: ALPRAZolam 0.25 MG TABLET PO PRN (22:52)
[2017-07-30 23:15] VITALS: BP 157/63
[2017-07-31 03:15] VITALS: BP 139/59
[2017-07-31] MEDS: PROCHLORPERAZINE 5 MG TABLET. PO SCH ×4 (06:00→18:00)
[2017-07-31 07:00] VITALS: BP 139/61
[2017-07-31] MEDS: PANTOPRAZOLE 40 MG TABLET.DR. PO SCH (08:34)
[2017-07-31] MEDS: CYANOCOBALAMIN (VITAMIN B-12) 1,000 MCG TABLET. PO SCH (08:35)
[2017-07-31] MEDS: ASPIRIN ENTERIC COATED 81 MG TABLET.DR. PO SCH (08:35)
[2017-07-31] MEDS: LEVOTHYROXINE 150 MCG TABLET PO SCH (08:35)
[2017-07-31] MEDS: FERROUS SULFATE 325 MG TABLET. PO SCH (08:35)
[2017-07-31] MEDS: METOPROLOL TART IMMED RELEASE 50 MG TABLET. PO SCH ×2 (08:36→20:51)
[2017-07-31] MEDS: POLYETHYLENE GLYCOL 3350 17 GM PACKET. PO SCH (08:39)
[2017-07-31] MEDS: INSULIN ASPART 300 UNITS/3 ML INSULN.PEN SQ SCH ×3 (08:45→17:52)
[2017-07-31] MEDS ORDERED: IV NORMAL SALINE 1000ML BAG 1,000 ML IV ONE (10:00)
--- NOTE | 2017-07-31 10:04 | PDOC ---
GENERAL General: late entry for 07.30.17 as unable to access computer system remotely yesterday pm. remains somnolent with azotemia no better off diuretics. exam stable with improved anasarca. chest with decent breath sounds and heart regular. continue off diuretics and observe. Problems: VITAL SIGNS Vital Signs: Vital Signs Date Time Temp Pulse Resp B/P (MAP) Pulse Ox O2 Delivery O2 Flow Rate FiO2 07/31/17 08:36 54 139/61 07/31/17 08:00 Nasal Cannula 3.0 07/31/17 07:00 96.0 18 100 96.0 ALLERGIES Allergies: Allergies Coded Allergies Type Severity Reaction Last Updated Verified I S O L A T I O N *CONTACT* Allergy Unknown 07/26/17 Yes No Known Medication Allergies Allergy Unknown 07/26/17 Yes MEDS Medications: Current Medications Medications (Trade) Dose Ordered Sig/Silvano Start Time Stop Time Status Last Admin Dose Admin Acetaminophen (Tylenol) 325 mg PRN Q4HRS PRN 07/24/17 13:30 Acetaminophen/ Hydrocodone Bitart (Lortab 5/325) 2 tab PRN Q4HRS PRN 07/23/17 15:30 07/29/17 09:30 2 TAB Alprazolam (Xanax) 0.25 mg TID PRN PRN 07/23/17 10:00 07/30/17 22:52 0.25 MG Aspirin (Ecotrin) 81 mg DAILY 07/23/17 09:00 07/31/17 08:35 81 MG Atorvastatin Calcium (Lipitor) 10 mg QHS 07/23/17 21:00 07/30/17 20:36 10 MG Bisacodyl (Dulcolax Supp) 10 mg PRN DAILY PRN 07/23/17 16:15 Cyanocobalamin (Vitamin B-12) 1,000 mcg DAILY 07/23/17 09:00 07/31/17 08:35 1,000 MCG Darbepoetin Toño (Aranesp) 60 mcg Fr 07/23/17 21:00 07/30/17 20:40 60 MCG Dextrose (Dextrose 50%-Water Syringe) 12.5 gm PRN Q15MIN PRN 07/23/17 09:15 07/26/17 07:49 12.5 GM Ferrous Sulfate (Feosol) 65 mg DAILY 07/23/17 09:00 07/31/17 08:35 65 MG Furosemide (Lasix) 80 mg [id number] 07/27/17 14:00 07/28/17 08:17 DC 07/27/17 13:33 80 MG Glucose (Insta-Glucose) 15 gm PRN Q15MIN PRN 07/26/17 08:30 Insulin Aspart (NovoLOG) 5 units 1X ONCE 07/30/17 21:00 07/30/17 21:01 DC 07/30/17 21:11 5 UNITS Insulin Detemir (Levemir) 7 units QHS 07/25/17 21:00 07/27/17 08:42 DC 07/26/17 21:23 7 UNITS Labetalol HCl (Normodyne) 20 mg PRN Q6HRS PRN 07/29/17 04:15 UNV Levothyroxine Sodium (Synthroid) 150 mcg DAILY 07/23/17 09:00 07/31/17 08:35 150 MCG Losartan Potassium (Cozaar) 50 mg DAILY 07/23/17 09:00 07/23/17 12:16 DC 07/23/17 09:41 50 MG Metolazone (Zaroxolyn) 2.5 mg DAILY 07/24/17 12:00 07/27/17 20:28 DC 07/27/17 09:51 2.5 MG Metoprolol Tartrate (Lopressor) 50 mg BID 07/23/17 10:00 07/31/17 08:36 50 MG Morphine Sulfate 2 mg PRN Q2HR PRN 07/23/17 05:00 07/24/17 04:59 DC Ondansetron HCl (Zofran Odt) 4 mg PRN Q6HRS PRN 07/23/17 09:15 Ondansetron HCl (Zofran) 4 mg PRN Q8HRS PRN 07/23/17 05:00 07/23/17 09:33 DC Pantoprazole Sodium (Protonix) 40 mg DAILY 07/23/17 09:00 07/31/17 08:34 40 MG Polyethylene Glycol (miraLAX PACKET) 17 gm DAILY 07/23/17 09:30 07/31/17 08:39 17 GM Prochlorperazine Maleate (Compazine) 10 mg Q6HRS 07/23/17 12:00 07/30/17 18:14 10 MG Quinine Sulfate (Qualaquin) 324 mg PRN QHS PRN 07/27/17 18:45 07/29/17 20:31 324 MG Sodium Polystyrene Sulfonate (Kayexalate) 30 gm 1X ONCE 07/24/17 08:00 07/24/17 08:01 DC 07/24/17 09:01 30 GM LAB Lab: Laboratory Tests Test 07/30/17 12:37 07/30/17 17:07 07/30/17 20:39 07/31/17 07:28 Glucose (Fingerstick) 323 mg/dL (70-99) 323 mg/dL (70-99) 418 mg/dL (70-99) 265 mg/dL (70-99) JESSICA GREWAL MD Jul 31, 2017 10:04
--- NOTE | 2017-07-31 10:08 | PDOC ---
GENERAL General: vss and afebrile. somnolent but also has received xanax earlier this am for hollering out. exam stable. O>I? per records without diuretics. suspect azotemia not improving due to poor po intake due to encephalopathy due to azotemia and xanax. will give one liter NS iv today. recheck labs in am and await family direction on course of care. sugars high and will increase sliding scale insulin. Problems: VITAL SIGNS Vital Signs: Vital Signs Date Time Temp Pulse Resp B/P (MAP) Pulse Ox O2 Delivery O2 Flow Rate FiO2 07/31/17 08:36 54 139/61 07/31/17 08:00 Nasal Cannula 3.0 07/31/17 07:00 96.0 18 100 96.0 ALLERGIES Allergies: Allergies Coded Allergies Type Severity Reaction Last Updated Verified I S O L A T I O N *CONTACT* Allergy Unknown 07/26/17 Yes No Known Medication Allergies Allergy Unknown 07/26/17 Yes MEDS Medications: Current Medications Medications (Trade) Dose Ordered Sig/Silvano Start Time Stop Time Status Last Admin Dose Admin Acetaminophen (Tylenol) 325 mg PRN Q4HRS PRN 07/24/17 13:30 Acetaminophen/ Hydrocodone Bitart (Lortab 5/325) 2 tab PRN Q4HRS PRN 07/23/17 15:30 07/29/17 09:30 2 TAB Alprazolam (Xanax) 0.25 mg TID PRN PRN 07/23/17 10:00 07/30/17 22:52 0.25 MG Aspirin (Ecotrin) 81 mg DAILY 07/23/17 09:00 07/31/17 08:35 81 MG Atorvastatin Calcium (Lipitor) 10 mg QHS 07/23/17 21:00 07/30/17 20:36 10 MG Bisacodyl (Dulcolax Supp) 10 mg PRN DAILY PRN 07/23/17 16:15 Cyanocobalamin (Vitamin B-12) 1,000 mcg DAILY 07/23/17 09:00 07/31/17 08:35 1,000 MCG Darbepoetin Toño (Aranesp) 60 mcg Fr 07/23/17 21:00 07/30/17 20:40 60 MCG Dextrose (Dextrose 50%-Water Syringe) 12.5 gm PRN Q15MIN PRN 07/23/17 09:15 07/26/17 07:49 12.5 GM Ferrous Sulfate (Feosol) 65 mg DAILY 07/23/17 09:00 07/31/17 08:35 65 MG Furosemide (Lasix) 80 mg [id number] 07/27/17 14:00 07/28/17 08:17 DC 07/27/17 13:33 80 MG Glucose (Insta-Glucose) 15 gm PRN Q15MIN PRN 07/26/17 08:30 Insulin Aspart (NovoLOG) 5 units 1X ONCE 07/30/17 21:00 07/30/17 21:01 DC 07/30/17 21:11 5 UNITS Insulin Detemir (Levemir) 7 units QHS 07/25/17 21:00 07/27/17 08:42 DC 07/26/17 21:23 7 UNITS Labetalol HCl (Normodyne) 20 mg PRN Q6HRS PRN 07/29/17 04:15 UNV Levothyroxine Sodium (Synthroid) 150 mcg DAILY 07/23/17 09:00 07/31/17 08:35 150 MCG Losartan Potassium (Cozaar) 50 mg DAILY 07/23/17 09:00 07/23/17 12:16 DC 07/23/17 09:41 50 MG Metolazone (Zaroxolyn) 2.5 mg DAILY 07/24/17 12:00 07/27/17 20:28 DC 07/27/17 09:51 2.5 MG Metoprolol Tartrate (Lopressor) 50 mg BID 07/23/17 10:00 07/31/17 08:36 50 MG Morphine Sulfate 2 mg PRN Q2HR PRN 07/23/17 05:00 07/24/17 04:59 DC Ondansetron HCl (Zofran Odt) 4 mg PRN Q6HRS PRN 07/23/17 09:15 Ondansetron HCl (Zofran) 4 mg PRN Q8HRS PRN 07/23/17 05:00 07/23/17 09:33 DC Pantoprazole Sodium (Protonix) 40 mg DAILY 07/23/17 09:00 07/31/17 08:34 40 MG Polyethylene Glycol (miraLAX PACKET) 17 gm DAILY 9/29/17 09:30 07/31/17 08:39 17 GM Prochlorperazine Maleate (Compazine) 10 mg Q6HRS 07/23/17 12:00 07/30/17 18:14 10 MG Quinine Sulfate (Qualaquin) 324 mg PRN QHS PRN 07/27/17 18:45 07/29/17 20:31 324 MG Sodium Polystyrene Sulfonate (Kayexalate) 30 gm 1X ONCE 07/24/17 08:00 07/24/17 08:01 DC 07/24/17 09:01 30 GM LAB Lab: Laboratory Tests Test 07/30/17 12:37 07/30/17 17:07 07/30/17 20:39 07/31/17 07:28 Glucose (Fingerstick) 323 mg/dL (70-99) 323 mg/dL (70-99) 418 mg/dL (70-99) 265 mg/dL (70-99) JESSICA GREWAL MD Jul 31, 2017 10:08
[2017-07-31 11:00] VITALS: BP 124/24
--- NOTE | 2017-07-31 11:34 | PDOC ---
SUBJECTIVE ROS F/up for advanced CKD/ ? ESRD unable to arouse for ROS OBJECTIVE Vital Signs Vital Signs Date Time Temp Pulse Resp B/P (MAP) Pulse Ox O2 Delivery O2 Flow Rate FiO2 07/31/17 08:36 54 139/61 07/31/17 08:00 Nasal Cannula 3.0 07/31/17 07:00 96.0 18 100 96.0 PHYSICAL EXAM Physical Exam GEN: unable to awaken, ? encephalopathic , In no visible distress EYES: Sclera WNL, Conjunctiva Normal EN: No EN Drainage, Mucous Membranes dryish; HAides in palce NECK: no JVD, min JVP, Supple, no Thyromegaly CVS: S1S2, ? Murmur, No Gallop, No Rub,no Edema RESP: no Rales, no Rhonchi,no Acc. Muscle Use GI: BS + ve, NO Bruit, Non Tender, Non Distended : no CVA tenderness, no Suprapubic Tenderness DIAGNOSIS/ASSESSMENT Assessment & Plan UREMIA with LETHARGY and ? Uremic Encephalopathy ANASARCA-BETTER ANEMIA ESRD-PROGRESSIVE WORSENING OF HER RENAL LABS DM II HTN HYPERKALEMIA-RESOLVED HYPONATREMIA PLAN DIURETICS STOPPED; IVF RUNNING SUPPORTIVE CARE POOR PROGNOSIS PALLIATIVE CARE MOST APPROPRIATE FOR HER LESLIE IF SHE HAS REFUSED DIALYSIS WILL F/UP ON WEDNESDAY Problems: COMMENT/RELEVANT DATA Meds Current Medications Medications (Trade) Dose Ordered Sig/Silvano Start Time Stop Time Status Last Admin Dose Admin Acetaminophen (Tylenol) 325 mg PRN Q4HRS PRN 07/24/17 13:30 Acetaminophen/ Hydrocodone Bitart (Lortab 5/325) 2 tab PRN Q4HRS PRN 07/23/17 15:30 07/29/17 09:30 2 TAB Alprazolam (Xanax) 0.25 mg TID PRN PRN 07/23/17 10:00 07/30/17 22:52 0.25 MG Aspirin (Ecotrin) 81 mg DAILY 07/23/17 09:00 07/31/17 08:35 81 MG Atorvastatin Calcium (Lipitor) 10 mg QHS 07/23/17 21:00 07/30/17 20:36 10 MG Bisacodyl (Dulcolax Supp) 10 mg PRN DAILY PRN 07/23/17 16:15 Cyanocobalamin (Vitamin B-12) 1,000 mcg DAILY 07/23/17 09:00 07/31/17 08:35 1,000 MCG Darbepoetin Toño (Aranesp) 60 mcg Fr 07/23/17 21:00 07/30/17 20:40 60 MCG Dextrose (Dextrose 50%-Water Syringe) 12.5 gm PRN Q15MIN PRN 07/23/17 09:15 07/26/17 07:49 12.5 GM Ferrous Sulfate (Feosol) 65 mg DAILY 07/23/17 09:00 07/31/17 08:35 65 MG Furosemide (Lasix) 80 mg [id number] 07/27/17 14:00 07/28/17 08:17 DC 07/27/17 13:33 80 MG Glucose (Insta-Glucose) 15 gm PRN Q15MIN PRN 07/26/17 08:30 Insulin Aspart (NovoLOG) 0-8 UNITS TIDWMEALS 07/31/17 12:00 Insulin Detemir (Levemir) 7 units QHS 07/25/17 21:00 07/27/17 08:42 DC 07/26/17 21:23 7 UNITS Labetalol HCl (Normodyne) 20 mg PRN Q6HRS PRN 07/29/17 04:15 UNV Levothyroxine Sodium (Synthroid) 150 mcg DAILY 07/23/17 09:00 07/31/17 08:35 150 MCG Losartan Potassium (Cozaar) 50 mg DAILY 07/23/17 09:00 07/23/17 12:16 DC 07/23/17 09:41 50 MG Metolazone (Zaroxolyn) 2.5 mg DAILY 07/24/17 12:00 07/27/17 20:28 DC 07/27/17 09:51 2.5 MG Metoprolol Tartrate (Lopressor) 50 mg BID 07/23/17 10:00 07/31/17 08:36 50 MG Morphine Sulfate 2 mg PRN Q2HR PRN 07/23/17 05:00 07/24/17 04:59 DC Ondansetron HCl (Zofran Odt) 4 mg PRN Q6HRS PRN 07/23/17 09:15 Ondansetron HCl (Zofran) 4 mg PRN Q8HRS PRN 07/23/17 05:00 07/23/17 09:33 DC Pantoprazole Sodium (Protonix) 40 mg DAILY 07/23/17 09:00 07/31/17 08:34 40 MG Polyethylene Glycol (miraLAX PACKET) 17 gm DAILY 07/23/17 09:30 07/31/17 08:39 17 GM Prochlorperazine Maleate (Compazine) 10 mg Q6HRS 07/23/17 12:00 07/30/17 18:14 10 MG Quinine Sulfate (Qualaquin) 324 mg PRN QHS PRN 07/27/17 18:45 07/29/17 20:31 324 MG Sodium Polystyrene Sulfonate (Kayexalate) 30 gm 1X ONCE 07/24/17 08:00 07/24/17 08:01 DC 07/24/17 09:01 30 GM Sodium Chloride 1,000 ml @ 75 mls/hr 1X ONCE 07/31/17 10:00 07/31/17 23:19 07/31/17 10:51 75 MLS/HR Lab Laboratory Tests Test 07/30/17 12:37 07/30/17 17:07 07/30/17 20:39 07/31/17 07:28 Glucose (Fingerstick) 323 mg/dL (70-99) 323 mg/dL (70-99) 418 mg/dL (70-99) 265 mg/dL (70-99) JOVON TURNER MD Jul 31, 2017 11:34
[2017-07-31] MEDS ORDERED: INSULIN ASPART 300 UNITS/3 ML INSULN.PEN SQ SCH (12:00)
[2017-07-31 15:00] VITALS: BP 162/55
[2017-07-31 19:20] VITALS: BP 165/75
[2017-07-31] MEDS: ATORVASTATIN CALCIUM 10 MG TABLET. PO SCH (20:51)
[2017-07-31 23:00] VITALS: BP 155/67
[2017-08-01 03:00] VITALS: BP 160/61
[2017-08-01] MEDS: PROCHLORPERAZINE 5 MG TABLET. PO SCH ×4 (05:55→17:34)
[2017-08-01 06:03] LABS: ALBUMIN 2.2 g/dL (3.4-5.0); ALBUMIN/GLOBULIN RATIO 0.5 (1.0-1.7); CALCIUM 8.4 mg/dL (8.5-10.1); CREATININE 3.4 mg/dL (0.6-1.0); GFR 12.8; POTASSIUM 4.3 mmol/L (3.5-5.1); TOTAL BILIRUBIN 0.4 mg/dL (0.2-1.0); TOTAL PROTEIN 6.4 g/dL (6.4-8.2)
[2017-08-01 06:07] LABS: BASO # 0.1 x10^3/uL (0.0-0.2); BASO % 1 % (0-3); EOS % 3 % (0-3); HEMATOCRIT 24.8 % (36.0-47.0); HEMOGLOBIN 8.1 g/dL (12.0-15.5); LYMPH # 0.7 x10^3/uL (1.0-4.8); LYMPH % 12 % (24-48); MEAN CORPUSCULAR HEMOGLOBIN 31 pg (25-35); MEAN CORPUSCULAR HGB CONC 33 g/dL (31-37); MEAN CORPUSCULAR VOLUME 94 fL (79-100); MONO % 10 % (0-9); NEUT % 74 % (31-73); PLATELET COUNT 413 x10^3/uL (140-400); RED BLOOD COUNT 2.63 x10^6/uL (3.50-5.40); RED CELL DISTRIBUTION WIDTH 15.7 % (11.5-14.5); WHITE BLOOD COUNT 5.6 x10^3/uL (4.0-11.0)
[2017-08-01 07:45] VITALS: BP 169/57
[2017-08-01] MEDS: CYANOCOBALAMIN (VITAMIN B-12) 1,000 MCG TABLET. PO SCH (09:12)
[2017-08-01] MEDS: FERROUS SULFATE 325 MG TABLET. PO SCH (09:13)
[2017-08-01] MEDS: METOPROLOL TART IMMED RELEASE 50 MG TABLET. PO SCH ×2 (09:13→21:08)
[2017-08-01] MEDS: ASPIRIN ENTERIC COATED 81 MG TABLET.DR. PO SCH (09:14)
[2017-08-01] MEDS: PANTOPRAZOLE 40 MG TABLET.DR. PO SCH (09:15)
[2017-08-01] MEDS: POLYETHYLENE GLYCOL 3350 17 GM PACKET. PO SCH (09:15)
[2017-08-01] MEDS: INSULIN ASPART 300 UNITS/3 ML INSULN.PEN SQ SCH ×3 (09:22→17:38)
[2017-08-01] MEDS: LEVOTHYROXINE 150 MCG TABLET PO SCH (09:28)
[2017-08-01 10:48] VITALS: BP 156/55
--- NOTE | 2017-08-01 12:10 | PDOC ---
GENERAL General: vss and afebrile. BUN have decreased with hydration and much more awake and alert as expected. edema still minimal and cardiopulmonary exam stable. will give another liter of NS today. expect dc back to resort tomorrow unless family makes decision to dialyze. Hb stable at 8.1. Problems: VITAL SIGNS Vital Signs: Vital Signs Date Time Temp Pulse Resp B/P (MAP) Pulse Ox O2 Delivery O2 Flow Rate FiO2 08/01/17 10:48 97.9 53 18 156/55 (88) 94 Nasal Cannula 3.0 97.9 I & O I & O Intake and Output 08/02/17 07:00 Intake Total 300 ml Balance 300 ml Intake Oral 300 ml ALLERGIES Allergies: Allergies Coded Allergies Type Severity Reaction Last Updated Verified I S O L A T I O N *CONTACT* Allergy Unknown 07/26/17 Yes No Known Medication Allergies Allergy Unknown 07/26/17 Yes MEDS Medications: Current Medications Medications (Trade) Dose Ordered Sig/Silvano Start Time Stop Time Status Last Admin Dose Admin Acetaminophen (Tylenol) 325 mg PRN Q4HRS PRN 07/24/17 13:30 Acetaminophen/ Hydrocodone Bitart (Lortab 5/325) 2 tab PRN Q4HRS PRN 07/23/17 15:30 07/29/17 09:30 2 TAB Alprazolam (Xanax) 0.25 mg TID PRN PRN 07/23/17 10:00 07/30/17 22:52 0.25 MG Aspirin (Ecotrin) 81 mg DAILY 07/23/17 09:00 08/01/17 09:14 81 MG Atorvastatin Calcium (Lipitor) 10 mg QHS 07/23/17 21:00 07/31/17 20:51 10 MG Bisacodyl (Dulcolax Supp) 10 mg PRN DAILY PRN 07/23/17 16:15 Cyanocobalamin (Vitamin B-12) 1,000 mcg DAILY 07/23/17 09:00 08/01/17 09:12 1,000 MCG Darbepoetin Toño (Aranesp) 60 mcg Fr 07/23/17 21:00 07/30/17 20:40 60 MCG Dextrose (Dextrose 50%-Water Syringe) 12.5 gm PRN Q15MIN PRN 07/23/17 09:15 07/26/17 07:49 12.5 GM Ferrous Sulfate (Feosol) 65 mg DAILY 07/23/17 09:00 08/01/17 09:13 65 MG Furosemide (Lasix) 80 mg [id number] 07/27/17 14:00 07/28/17 08:17 DC 07/27/17 13:33 80 MG Glucose (Insta-Glucose) 15 gm PRN Q15MIN PRN 07/26/17 08:30 Insulin Aspart (NovoLOG) 0-8 UNITS TIDWMEALS 07/31/17 12:00 08/01/17 09:22 6 UNITS Insulin Detemir (Levemir) 7 units QHS 07/25/17 21:00 07/27/17 08:42 DC 07/26/17 21:23 7 UNITS Labetalol HCl (Normodyne) 20 mg PRN Q6HRS PRN 07/29/17 04:15 UNV Levothyroxine Sodium (Synthroid) 150 mcg DAILY 07/23/17 09:00 08/01/17 09:28 150 MCG Losartan Potassium (Cozaar) 50 mg DAILY 07/23/17 09:00 07/23/17 12:16 DC 07/23/17 09:41 50 MG Metolazone (Zaroxolyn) 2.5 mg DAILY 07/24/17 12:00 07/27/17 20:28 DC 07/27/17 09:51 2.5 MG Metoprolol Tartrate (Lopressor) 50 mg BID 07/23/17 10:00 08/01/17 09:13 50 MG Morphine Sulfate 2 mg PRN Q2HR PRN 07/23/17 05:00 07/24/17 04:59 DC Ondansetron HCl (Zofran Odt) 4 mg PRN Q6HRS PRN 07/23/17 09:15 Ondansetron HCl (Zofran) 4 mg PRN Q8HRS PRN 07/23/17 05:00 07/23/17 09:33 DC Pantoprazole Sodium (Protonix) 40 mg DAILY 07/23/17 09:00 08/01/17 09:15 40 MG Polyethylene Glycol (miraLAX PACKET) 17 gm DAILY 07/23/17 09:30 08/01/17 09:15 17 GM Prochlorperazine Maleate (Compazine) 10 mg Q6HRS 07/23/17 12:00 07/30/17 18:14 10 MG Quinine Sulfate (Qualaquin) 324 mg PRN QHS PRN 07/27/17 18:45 07/29/17 20:31 324 MG Sodium Polystyrene Sulfonate (Kayexalate) 30 gm 1X ONCE 07/24/17 08:00 07/24/17 08:01 DC 07/24/17 09:01 30 GM Sodium Chloride 1,000 ml @ 75 mls/hr 1X ONCE 07/31/17 10:00 07/31/17 23:19 DC 07/31/17 10:51 75 MLS/HR LAB Lab: Laboratory Tests Test 07/31/17 17:42 07/31/17 21:20 08/01/17 05:00 08/01/17 07:48 Glucose (Fingerstick) 216 mg/dL (70-99) 262 mg/dL (70-99) 239 mg/dL (70-99) White Blood Count 5.6 x10^3/uL (4.0-11.0) Red Blood Count 2.63 x10^6/uL (3.50-5.40) Hemoglobin 8.1 g/dL (12.0-15.5) Hematocrit 24.8 % (36.0-47.0) Mean Corpuscular Volume 94 fL (79-100) Mean Corpuscular Hemoglobin 31 pg (25-35) Mean Corpuscular Hemoglobin Concent 33 g/dL (31-37) Red Cell Distribution Width 15.7 % (11.5-14.5) Platelet Count 413 x10^3/uL (140-400) Neutrophils (%) (Auto) 74 % (31-73) Lymphocytes (%) (Auto) 12 % (24-48) Monocytes (%) (Auto) 10 % (0-9) Eosinophils (%) (Auto) 3 % (0-3) Basophils (%) (Auto) 1 % (0-3) Neutrophils # (Auto) 4.2 x10^3uL (1.8-7.7) Lymphocytes # (Auto) 0.7 x10^3/uL (1.0-4.8) Monocytes # (Auto) 0.6 x10^3/uL (0.0-1.1) Eosinophils # (Auto) 0.1 x10^3/uL (0.0-0.7) Basophils # (Auto) 0.1 x10^3/uL (0.0-0.2) Sodium Level 131 mmol/L (136-145) Potassium Level 4.3 mmol/L (3.5-5.1) Chloride Level 94 mmol/L (98-107) Carbon Dioxide Level 32 mmol/L (21-32) Anion Gap 5 (6-14) Blood Urea Nitrogen 102 mg/dL (7-20) Creatinine 3.4 mg/dL (0.6-1.0) Estimated GFR (Cockcroft-Gault) 12.8 BUN/Creatinine Ratio 30 (6-20) Glucose Level 240 mg/dL (70-99) Calcium Level 8.4 mg/dL (8.5-10.1) Total Bilirubin 0.4 mg/dL (0.2-1.0) Aspartate Amino Transf (AST/SGOT) 14 U/L (15-37) Alanine Aminotransferase (ALT/SGPT) 16 U/L (14-59) Alkaline Phosphatase 80 U/L (46-116) Total Protein 6.4 g/dL (6.4-8.2) Albumin 2.2 g/dL (3.4-5.0) Albumin/Globulin Ratio 0.5 (1.0-1.7) Test 08/01/17 11:48 Glucose (Fingerstick) 396 mg/dL (70-99) JESSICA GREWAL MD Aug 01, 2017 12:10
[2017-08-01] MEDS ORDERED: IV NORMAL SALINE 1000ML BAG 1,000 ML IV ONE (12:30)
[2017-08-01 15:00] VITALS: BP 161/56
[2017-08-01 19:20] VITALS: BP 158/66
[2017-08-01] MEDS: ATORVASTATIN CALCIUM 10 MG TABLET. PO SCH (21:08)
[2017-08-01 23:00] VITALS: BP 153/66
[2017-08-01] MEDS: ALPRAZolam 0.25 MG TABLET PO PRN (23:41)
[2017-08-02 02:40] VITALS: BP 141/53
[2017-08-02 05:37] LABS: BASO % 1 % (0-3); EOS % 3 % (0-3); HEMATOCRIT 24.6 % (36.0-47.0); HEMOGLOBIN 8.1 g/dL (12.0-15.5); LYMPH # 0.9 x10^3/uL (1.0-4.8); LYMPH % 16 % (24-48); MEAN CORPUSCULAR HEMOGLOBIN 31 pg (25-35); MEAN CORPUSCULAR HGB CONC 33 g/dL (31-37); MEAN CORPUSCULAR VOLUME 95 fL (79-100); MONO % 12 % (0-9); NEUT % 69 % (31-73); PLATELET COUNT 365 x10^3/uL (140-400); RED CELL DISTRIBUTION WIDTH 15.6 % (11.5-14.5); WHITE BLOOD COUNT 5.8 x10^3/uL (4.0-11.0)
[2017-08-02] MEDS: PROCHLORPERAZINE 5 MG TABLET. PO SCH ×4 (06:00→17:33)
[2017-08-02 06:04] LABS: ALBUMIN 2.3 g/dL (3.4-5.0); ALBUMIN/GLOBULIN RATIO 0.6 (1.0-1.7); CALCIUM 8.7 mg/dL (8.5-10.1); CREATININE 3.2 mg/dL (0.6-1.0); GFR 13.7; POTASSIUM 4.6 mmol/L (3.5-5.1); TOTAL BILIRUBIN 0.4 mg/dL (0.2-1.0); TOTAL PROTEIN 6.4 g/dL (6.4-8.2)
[2017-08-02 07:00] VITALS: BP 172/65
[2017-08-02] MEDS: ASPIRIN ENTERIC COATED 81 MG TABLET.DR. PO SCH (08:42)
[2017-08-02] MEDS: POLYETHYLENE GLYCOL 3350 17 GM PACKET. PO SCH (08:42)
[2017-08-02] MEDS: LEVOTHYROXINE 150 MCG TABLET PO SCH (08:43)
[2017-08-02] MEDS: CYANOCOBALAMIN (VITAMIN B-12) 1,000 MCG TABLET. PO SCH (08:43)
[2017-08-02] MEDS: PANTOPRAZOLE 40 MG TABLET.DR. PO SCH (08:43)
--- NOTE | 2017-08-02 08:44 | PDOC ---
GENERAL General: vss and afebrile relatively bradycardic at times but asymptomatic from same. renal function continues to improve with hydration and mental status approaching normal with resolving azotemia with fluids. will give another liter NS today with dc am and adjustment of diuretics as outpatient. exam stable. Problems: VITAL SIGNS Vital Signs: Vital Signs Date Time Temp Pulse Resp B/P (MAP) Pulse Ox O2 Delivery O2 Flow Rate FiO2 08/02/17 07:00 98.1 48 16 172/65 (100) 99 Nasal Cannula 4.0 98.1 ALLERGIES Allergies: Allergies Coded Allergies Type Severity Reaction Last Updated Verified I S O L A T I O N *CONTACT* Allergy Unknown 07/26/17 Yes No Known Medication Allergies Allergy Unknown 07/26/17 Yes MEDS Medications: Current Medications Medications (Trade) Dose Ordered Sig/Silvano Start Time Stop Time Status Last Admin Dose Admin Acetaminophen (Tylenol) 325 mg PRN Q4HRS PRN 07/24/17 13:30 Acetaminophen/ Hydrocodone Bitart (Lortab 5/325) 2 tab PRN Q4HRS PRN 07/23/17 15:30 07/29/17 09:30 2 TAB Alprazolam (Xanax) 0.25 mg TID PRN PRN 07/23/17 10:00 08/01/17 23:41 0.25 MG Aspirin (Ecotrin) 81 mg DAILY 07/23/17 09:00 08/01/17 09:14 81 MG Atorvastatin Calcium (Lipitor) 10 mg QHS 07/23/17 21:00 08/01/17 21:08 10 MG Bisacodyl (Dulcolax Supp) 10 mg PRN DAILY PRN 07/23/17 16:15 Cyanocobalamin (Vitamin B-12) 1,000 mcg DAILY 07/23/17 09:00 08/01/17 09:12 1,000 MCG Darbepoetin Toño (Aranesp) 60 mcg Fr 07/23/17 21:00 07/30/17 20:40 60 MCG Dextrose (Dextrose 50%-Water Syringe) 12.5 gm PRN Q15MIN PRN 07/23/17 09:15 07/26/17 07:49 12.5 GM Ferrous Sulfate (Feosol) 65 mg DAILY 07/23/17 09:00 08/01/17 09:13 65 MG Furosemide (Lasix) 80 mg [id number] 07/27/17 14:00 07/28/17 08:17 DC 07/27/17 13:33 80 MG Glucose (Insta-Glucose) 15 gm PRN Q15MIN PRN 07/26/17 08:30 Insulin Aspart (NovoLOG) 0-8 UNITS TIDWMEALS 07/31/17 12:00 08/01/17 17:38 6 UNITS Insulin Detemir (Levemir) 7 units QHS 07/25/17 21:00 07/27/17 08:42 DC 07/26/17 21:23 7 UNITS Labetalol HCl (Normodyne) 20 mg PRN Q6HRS PRN 07/29/17 04:15 UNV Levothyroxine Sodium (Synthroid) 150 mcg DAILY 07/23/17 09:00 08/01/17 09:28 150 MCG Losartan Potassium (Cozaar) 50 mg DAILY 07/23/17 09:00 07/23/17 12:16 DC 07/23/17 09:41 50 MG Metolazone (Zaroxolyn) 2.5 mg DAILY 07/24/17 12:00 07/27/17 20:28 DC 07/27/17 09:51 2.5 MG Metoprolol Tartrate (Lopressor) 50 mg BID 07/23/17 10:00 08/01/17 21:08 50 MG Morphine Sulfate 2 mg PRN Q2HR PRN 07/23/17 05:00 07/24/17 04:59 DC Ondansetron HCl (Zofran Odt) 4 mg PRN Q6HRS PRN 07/23/17 09:15 Ondansetron HCl (Zofran) 4 mg PRN Q8HRS PRN 07/23/17 05:00 07/23/17 09:33 DC Pantoprazole Sodium (Protonix) 40 mg DAILY 07/23/17 09:00 08/01/17 09:15 40 MG Polyethylene Glycol (miraLAX PACKET) 17 gm DAILY 07/23/17 09:30 08/01/17 09:15 17 GM Prochlorperazine Maleate (Compazine) 10 mg Q6HRS 07/23/17 12:00 07/30/17 18:14 10 MG Quinine Sulfate (Qualaquin) 324 mg PRN QHS PRN 07/27/17 18:45 07/29/17 20:31 324 MG Sodium Polystyrene Sulfonate (Kayexalate) 30 gm 1X ONCE 07/24/17 08:00 07/24/17 08:01 DC 07/24/17 09:01 30 GM Sodium Chloride 1,000 ml @ 75 mls/hr 1X ONCE 08/01/17 12:30 08/02/17 01:49 DC 08/01/17 12:42 75 MLS/HR LAB Lab: Laboratory Tests Test 08/01/17 11:48 08/01/17 16:44 08/01/17 20:41 08/02/17 05:25 Glucose (Fingerstick) 396 mg/dL (70-99) 210 mg/dL (70-99) 220 mg/dL (70-99) White Blood Count 5.8 x10^3/uL (4.0-11.0) Red Blood Count 2.60 x10^6/uL (3.50-5.40) Hemoglobin 8.1 g/dL (12.0-15.5) Hematocrit 24.6 % (36.0-47.0) Mean Corpuscular Volume 95 fL (79-100) Mean Corpuscular Hemoglobin 31 pg (25-35) Mean Corpuscular Hemoglobin Concent 33 g/dL (31-37) Red Cell Distribution Width 15.6 % (11.5-14.5) Platelet Count 365 x10^3/uL (140-400) Neutrophils (%) (Auto) 69 % (31-73) Lymphocytes (%) (Auto) 16 % (24-48) Monocytes (%) (Auto) 12 % (0-9) Eosinophils (%) (Auto) 3 % (0-3) Basophils (%) (Auto) 1 % (0-3) Neutrophils # (Auto) 4.0 x10^3uL (1.8-7.7) Lymphocytes # (Auto) 0.9 x10^3/uL (1.0-4.8) Monocytes # (Auto) 0.7 x10^3/uL (0.0-1.1) Eosinophils # (Auto) 0.2 x10^3/uL (0.0-0.7) Basophils # (Auto) 0.0 x10^3/uL (0.0-0.2) Sodium Level 134 mmol/L (136-145) Potassium Level 4.6 mmol/L (3.5-5.1) Chloride Level 96 mmol/L (98-107) Carbon Dioxide Level 32 mmol/L (21-32) Anion Gap 6 (6-14) Blood Urea Nitrogen 98 mg/dL (7-20) Creatinine 3.2 mg/dL (0.6-1.0) Estimated GFR (Cockcroft-Gault) 13.7 BUN/Creatinine Ratio 31 (6-20) Glucose Level 215 mg/dL (70-99) Calcium Level 8.7 mg/dL (8.5-10.1) Total Bilirubin 0.4 mg/dL (0.2-1.0) Aspartate Amino Transf (AST/SGOT) 14 U/L (15-37) Alanine Aminotransferase (ALT/SGPT) 13 U/L (14-59) Alkaline Phosphatase 75 U/L (46-116) Total Protein 6.4 g/dL (6.4-8.2) Albumin 2.3 g/dL (3.4-5.0) Albumin/Globulin Ratio 0.6 (1.0-1.7) Test 08/02/17 07:23 Glucose (Fingerstick) 221 mg/dL (70-99) JESSICA GREWAL MD Aug 02, 2017 08:44
[2017-08-02] MEDS ORDERED: IV NORMAL SALINE 1000ML BAG 1,000 ML IV ONE (08:45)
[2017-08-02] MEDS: INSULIN ASPART 300 UNITS/3 ML INSULN.PEN SQ SCH ×3 (08:51→16:54)
[2017-08-02] MEDS: METOPROLOL TART IMMED RELEASE 50 MG TABLET. PO SCH ×2 (08:52→19:53)
[2017-08-02] MEDS: FERROUS SULFATE 325 MG TABLET. PO SCH (09:42)
[2017-08-02] MEDS: ALPRAZolam 0.25 MG TABLET PO PRN ×2 (09:42→19:53)
[2017-08-02 11:00] VITALS: BP 170/52
[2017-08-02] MEDS: HYDROcodone/APAP 5/325MG 1 TAB TABLET PO PRN ×2 (11:20→19:53)
--- NOTE | 2017-08-02 11:25 | PDOC ---
Renal-Progress Notes Subjective Notes Notes NONE History of Present Illness Hx of present illness NO CHANGE Vitals Vitals Vital Signs Date Time Temp Pulse Resp B/P (MAP) Pulse Ox O2 Delivery O2 Flow Rate FiO2 08/02/17 11:00 97.9 54 18 170/52 (91) 94 Nasal Cannula 4.0 97.9 Weight Weight [ ] Labs Labs Laboratory Tests Test 08/01/17 11:48 08/01/17 16:44 08/01/17 20:41 08/02/17 05:25 Glucose (Fingerstick) 396 mg/dL (70-99) 210 mg/dL (70-99) 220 mg/dL (70-99) White Blood Count 5.8 x10^3/uL (4.0-11.0) Red Blood Count 2.60 x10^6/uL (3.50-5.40) Hemoglobin 8.1 g/dL (12.0-15.5) Hematocrit 24.6 % (36.0-47.0) Mean Corpuscular Volume 95 fL (79-100) Mean Corpuscular Hemoglobin 31 pg (25-35) Mean Corpuscular Hemoglobin Concent 33 g/dL (31-37) Red Cell Distribution Width 15.6 % (11.5-14.5) Platelet Count 365 x10^3/uL (140-400) Neutrophils (%) (Auto) 69 % (31-73) Lymphocytes (%) (Auto) 16 % (24-48) Monocytes (%) (Auto) 12 % (0-9) Eosinophils (%) (Auto) 3 % (0-3) Basophils (%) (Auto) 1 % (0-3) Neutrophils # (Auto) 4.0 x10^3uL (1.8-7.7) Lymphocytes # (Auto) 0.9 x10^3/uL (1.0-4.8) Monocytes # (Auto) 0.7 x10^3/uL (0.0-1.1) Eosinophils # (Auto) 0.2 x10^3/uL (0.0-0.7) Basophils # (Auto) 0.0 x10^3/uL (0.0-0.2) Sodium Level 134 mmol/L (136-145) Potassium Level 4.6 mmol/L (3.5-5.1) Chloride Level 96 mmol/L (98-107) Carbon Dioxide Level 32 mmol/L (21-32) Anion Gap 6 (6-14) Blood Urea Nitrogen 98 mg/dL (7-20) Creatinine 3.2 mg/dL (0.6-1.0) Estimated GFR (Cockcroft-Gault) 13.7 BUN/Creatinine Ratio 31 (6-20) Glucose Level 215 mg/dL (70-99) Calcium Level 8.7 mg/dL (8.5-10.1) Total Bilirubin 0.4 mg/dL (0.2-1.0) Aspartate Amino Transf (AST/SGOT) 14 U/L (15-37) Alanine Aminotransferase (ALT/SGPT) 13 U/L (14-59) Alkaline Phosphatase 75 U/L (46-116) Total Protein 6.4 g/dL (6.4-8.2) Albumin 2.3 g/dL (3.4-5.0) Albumin/Globulin Ratio 0.6 (1.0-1.7) Test 08/02/17 07:23 08/02/17 10:01 Glucose (Fingerstick) 221 mg/dL (70-99) 243 mg/dL (70-99) Review of Systems Constitutional: yes: other (CONFUSED) Physical Exam General Appearance: no apparent distress Skin: warm Respiratory: decreased breath sounds Heart: S1S2, RRR Abdomen: soft, N/T Extremities: pulses present, edema Assessment Assessment IMP UREMIA 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
[2017-08-02 14:41] VITALS: BP 159/70
[2017-08-02] MEDS ORDERED: CALCIUM CARBONATE 500 MG TAB.CHEW PO ONE (16:45)
[2017-08-02 19:30] VITALS: BP 158/66
[2017-08-02] MEDS: ATORVASTATIN CALCIUM 10 MG TABLET. PO SCH (19:53)
[2017-08-02 22:50] VITALS: BP 178/74
[2017-08-03] MEDS: HYDROcodone/APAP 5/325MG 1 TAB TABLET PO PRN (01:09)
[2017-08-03 02:45] VITALS: BP 196/82
[2017-08-03] MEDS: PROCHLORPERAZINE 5 MG TABLET. PO SCH ×3 (06:00→12:10)
[2017-08-03 07:00] VITALS: BP 186/76
[2017-08-03] MEDS: INSULIN ASPART 300 UNITS/3 ML INSULN.PEN SQ SCH ×2 (08:00→12:19)
[2017-08-03] MEDS: CYANOCOBALAMIN (VITAMIN B-12) 1,000 MCG TABLET. PO SCH (08:10)
[2017-08-03] MEDS: ALPRAZolam 0.25 MG TABLET PO PRN (08:10)
[2017-08-03] MEDS: LEVOTHYROXINE 150 MCG TABLET PO SCH (08:14)
[2017-08-03] MEDS: POLYETHYLENE GLYCOL 3350 17 GM PACKET. PO SCH (08:14)
[2017-08-03] MEDS: ASPIRIN ENTERIC COATED 81 MG TABLET.DR. PO SCH (08:14)
[2017-08-03] MEDS: PANTOPRAZOLE 40 MG TABLET.DR. PO SCH (08:14)
[2017-08-03] MEDS: FERROUS SULFATE 325 MG TABLET. PO SCH (08:14)
[2017-08-03] MEDS: METOPROLOL TART IMMED RELEASE 50 MG TABLET. PO SCH (08:14)
--- NOTE | 2017-08-03 08:30 | PDOC ---
GENERAL General: see discharge summary. Problems: VITAL SIGNS Vital Signs: Vital Signs Date Time Temp Pulse Resp B/P (MAP) Pulse Ox O2 Delivery O2 Flow Rate FiO2 08/03/17 08:14 60 186/77 08/03/17 02:45 97.4 20 97 Nasal Cannula 5.0 97.4 ALLERGIES Allergies: Allergies Coded Allergies Type Severity Reaction Last Updated Verified I S O L A T I O N *CONTACT* Allergy Unknown 07/26/17 Yes No Known Medication Allergies Allergy Unknown 07/26/17 Yes MEDS Medications: Current Medications Medications (Trade) Dose Ordered Sig/Silvano Start Time Stop Time Status Last Admin Dose Admin Acetaminophen (Tylenol) 325 mg PRN Q4HRS PRN 07/24/17 13:30 Acetaminophen/ Hydrocodone Bitart (Lortab 5/325) 2 tab PRN Q4HRS PRN 07/23/17 15:30 07/29/17 09:30 2 TAB Alprazolam (Xanax) 0.25 mg TID PRN PRN 07/23/17 10:00 08/03/17 08:10 0.25 MG Aspirin (Ecotrin) 81 mg DAILY 07/23/17 09:00 08/03/17 08:14 81 MG Atorvastatin Calcium (Lipitor) 10 mg QHS 07/23/17 21:00 08/02/17 19:53 10 MG Bisacodyl (Dulcolax Supp) 10 mg PRN DAILY PRN 07/23/17 16:15 Calcium Carbonate/ Glycine (Tums) 500 mg 1X ONCE 08/02/17 16:45 08/02/17 16:46 DC 08/02/17 16:50 500 MG Cyanocobalamin (Vitamin B-12) 1,000 mcg DAILY 07/23/17 09:00 08/03/17 08:10 1,000 MCG Darbepoetin Toño (Aranesp) 60 mcg Fr 07/23/17 21:00 07/30/17 20:40 60 MCG Dextrose (Dextrose 50%-Water Syringe) 12.5 gm PRN Q15MIN PRN 07/23/17 09:15 07/26/17 07:49 12.5 GM Ferrous Sulfate (Feosol) 325 mg [id number] 08/02/17 09:30 08/03/17 08:14 325 MG Furosemide (Lasix) 80 mg [id number] 07/27/17 14:00 07/28/17 08:17 DC 07/27/17 13:33 80 MG Glucose (Insta-Glucose) 15 gm PRN Q15MIN PRN 07/26/17 08:30 Insulin Aspart (NovoLOG) 0-8 UNITS TIDWMEALS 07/31/17 12:00 08/03/17 08:00 8 UNITS Insulin Detemir (Levemir) 7 units QHS 07/25/17 21:00 07/27/17 08:42 DC 07/26/17 21:23 7 UNITS Labetalol HCl (Normodyne) 20 mg PRN Q6HRS PRN 07/29/17 04:15 UNV Levothyroxine Sodium (Synthroid) 150 mcg DAILY 07/23/17 09:00 08/03/17 08:14 150 MCG Losartan Potassium (Cozaar) 50 mg DAILY 07/23/17 09:00 07/23/17 12:16 DC 07/23/17 09:41 50 MG Metolazone (Zaroxolyn) 2.5 mg DAILY 07/24/17 12:00 07/27/17 20:28 DC 07/27/17 09:51 2.5 MG Metoprolol Tartrate (Lopressor) 50 mg BID 07/23/17 10:00 08/03/17 08:14 50 MG Morphine Sulfate 2 mg PRN Q2HR PRN 07/23/17 05:00 07/24/17 04:59 DC Ondansetron HCl (Zofran Odt) 4 mg PRN Q6HRS PRN 07/23/17 09:15 Ondansetron HCl (Zofran) 4 mg PRN Q8HRS PRN 07/23/17 05:00 07/23/17 09:33 DC Pantoprazole Sodium (Protonix) 40 mg DAILY 07/23/17 09:00 08/03/17 08:14 40 MG Polyethylene Glycol (miraLAX PACKET) 17 gm DAILY 07/23/17 09:30 08/03/17 08:14 17 GM Prochlorperazine Maleate (Compazine) 10 mg Q6HRS 07/23/17 12:00 08/02/17 17:33 10 MG Quinine Sulfate (Qualaquin) 324 mg PRN QHS PRN 07/27/17 18:45 07/29/17 20:31 324 MG Sodium Polystyrene Sulfonate (Kayexalate) 30 gm 1X ONCE 07/24/17 08:00 07/24/17 08:01 DC 07/24/17 09:01 30 GM Sodium Chloride 1,000 ml @ 75 mls/hr 1X ONCE 08/02/17 08:45 08/02/17 22:04 DC 08/02/17 08:45 75 MLS/HR LAB Lab: Laboratory Tests Test 08/02/17 10:01 08/02/17 16:21 08/02/17 21:10 Glucose (Fingerstick) 243 mg/dL (70-99) 172 mg/dL (70-99) 201 mg/dL (70-99) JESSICA GREWAL MD Aug 03, 2017 08:30
[2017-08-03 10:49] LABS: CALCIUM 8.5 mg/dL (8.5-10.1); GFR 14.8; POTASSIUM 4.5 mmol/L (3.5-5.1)
[2017-08-03 11:00] VITALS: BP 137/57
--- NOTE | 2017-08-04 00:57 | DS ---
DATE OF DISCHARGE: 08/03/2017 PRIMARY DIAGNOSIS: Congestive heart failure. ADDITIONAL DIAGNOSES: Chronic kidney disease stage V, made worse with diuresis; ____ heart failure during the stay; azotemia with encephalopathy; hypoglycemia likely due to sulfonylurea; non-clearance by progressively worse renal function; diabetes; hypothyroidism; coronary artery disease, status post bypass; hypertension and hyperlipidemia. CHIEF COMPLAINT AND HISTORY OF PRESENT ILLNESS: This 86-year-old white female who was admitted from assisted back to the hospital and hypoglycemia on the day of admission, was found to have congestive heart failure. SUMMARY OF STAY: The patient was admitted, had some ongoing hypoglycemia for several days, this resolved with hyperglycemia throughout the majority of rest of the stay with sliding scale insulin. For the congestive heart failure, she was diuresed and this improved dramatically; however, BUN and creatinine was higher and higher with the BUN as high as 120, creatinine up in the upper 4s with azotemia and she became encephalopathic and had several days where she was completely out of it mentally because of the same. I discussed in detail with her children once again thoughts of dialysis. She had bad experience with her having it and wished not to do it. We then agreed to hydrate her back up to get her at a level where she would be mentally alert. She became mentally alert as this fell; however, became once again short of breath and more edematous. It was elected that we will try to leave somewhere in the middle as best we can back to assisted and assisted living if she makes it to that point. She was felt to be as stable as she is going to be, with the only other answer to her problem beginning of dialysis, but she has refused. DISPOSITION: The patient was transferred to assisted on the day of admission. Diet, activity, etc ____ transferred there. We will continue to follow her there. JESSICA GREWAL MD DR: BRE/ruddy JOB#: [id number] / [id number] JESSICA Olivo MD
[2017-08-18] MEDS ORDERED: NYST15PO9 TP (06:33)
[2017-08-18] MEDS ORDERED: INSU100C4 SQ (06:33)
[2017-08-18] MEDS ORDERED: METO50TA6 PO (06:33)
[2017-08-18] MEDS ORDERED: ATOR10TA PO (06:33)
[2017-08-18] MEDS ORDERED: DARB10SY IJ (06:33)
[2017-08-18] MEDS ORDERED: HYDR-2758 PO (06:33)
[2017-08-18] MEDS ORDERED: INSU100I27 SQ (06:33)
[2017-08-18] MEDS ORDERED: CIPR250T30 PO (06:33)
[2017-08-18] MEDS ORDERED: MENT3.5O TP (06:33)
[2017-08-18] MEDS ORDERED: LEVO150T PO (06:33)
[2017-08-18] MEDS ORDERED: POLY119P19 PO (06:33)
[2017-08-18] MEDS ORDERED: QUIN324C PO (06:33)
== END 2017-08-03 14:16 | DRG 291 ==
LOC: ER 02:54 → 2 SOUTH 04:47
PROVIDERS: ADMIT Family Medicine; ATTEND Family Medicine
DX: I50.21 Acute systolic (congestive) heart failure (principal); G93.40 Encephalopathy, unspecified; N18.6 End stage renal disease; E11.22 Type 2 diabetes mellitus with diabetic chronic kidney disease; I13.2 Hypertensive heart and chronic kidney disease with heart failure and with stage 5 chronic kidney disease, or end stage renal disease; E87.1 Hypo-osmolality and hyponatremia; E44.1 Mild protein-calorie malnutrition; E87.5 Hyperkalemia; D63.8 Anemia in other chronic diseases classified elsewhere; E03.9 Hypothyroidism, unspecified; E11.649 Type 2 diabetes mellitus with hypoglycemia without coma; E78.00 Pure hypercholesterolemia, unspecified; E78.5 Hyperlipidemia, unspecified; I25.10 Atherosclerotic heart disease of native coronary artery without angina pectoris; K59.00 Constipation, unspecified; Z87.11 Personal history of peptic ulcer disease; Z87.440 Personal history of urinary (tract) infections; Z90.49 Acquired absence of other specified parts of digestive tract; Z90.710 Acquired absence of both cervix and uterus; Z95.1 Presence of aortocoronary bypass graft; Z96.649 Presence of unspecified artificial hip joint; E21.3 Hyperparathyroidism, unspecified; Z88.8 Allergy status to other drugs, medicaments and biological substances; Z53.29 Procedure and treatment not carried out because of patient's decision for other reasons
CPT/HCPCS: 36415; 51701; 71010; 80048; 80053; 81001; 82962; 83735; 83880; 84100; 84132; 84484; 85025; 85027; 87641; 93005; J0881; J1815; J1940; J7030; J7042; Q0164; 99285-25